=== PATIENT | female | born 1990 | race Two or more races ===

== ENCOUNTER 2022-06-01 09:18 | Emergency (ER) | payer MEDICAID, OTHER ==
[~2022-06-01] VITALS: Ht 167.6 cm; Wt 62.0 kg
[2022-06-01 09:31] VITALS: BP 130/86
[2022-06-01] MEDS ORDERED: FAMOTIDINE INJECTION 40 MG in SODIUM CHL 0.9% 100 ML IV ONE (09:45)
[2022-06-01] MEDS ORDERED: FAMOTIDINE (10MG/ML) 2ML VL IV ONE (09:45)
[2022-06-01] MEDS ORDERED: SODIUM CHLORIDE 0.9% 1,000 ML IV ONE ×2 (09:45→11:30)
[2022-06-01] MEDS ORDERED: ONDANSETRON HCL 4 MG/2 ML VIAL IV ONE (09:45)
[2022-06-01 09:56] LABS: Urine Bacteria NONE SEEN /hpf (None Seen); Urine Blood Negative /uL (Negative); Urine Hyaline Cast FEW /lpf (0 - 2); Urine Mucus FEW (None Seen); Urine Specific Gravity 1.011 (1.001-1.035); Urine WBC 2 /hpf (0 - 5)
[2022-06-01 10:12] LABS: Potassium 3.7 mmol/L (3.5-5.1)
[2022-06-01 10:15] LABS: Amphetamine Screen, Urine NEGATIVE (NEGATIVE); Barbiturate Scree,Urine NEGATIVE (NEGATIVE); Benzodiazephine Screen, Urine NEGATIVE (NEGATIVE); Cannabinoid Screen, Urine NEGATIVE (NEGATIVE); Cocaine Screen, Urine NEGATIVE (NEGATIVE); Opiate Scree,Urine NEGATIVE (NEGATIVE); Phencyclidine Screen, Urine NEGATIVE (NEGATIVE)
[2022-06-01 10:20] LABS: Albumin 4.2 g/dL (3.4-5.0); Bilirubin, Total 0.9 mg/dL (0.2-1.0); Total Protein 8.1 g/dL (6.4-8.2)
[2022-06-01 11:48] LABS: Basophils # (auto) 0 10 ^3/uL (0-0.2); Basophils % (auto) 0.6 % (0.0-2.0); Eosinophils # (auto) 0 10 ^3/uL (0-0.8); Eosinophils % (auto) 0.6 % (0.0-7.0); Hematocrit 43.4 % (36.0-46.0); Hemoglobin 15.6 g/dL (12.2-16.2); Lymphocytes # (auto) 1.3 10 ^3/uL (0.4-5.4); Lymphocytes % (auto) 28.4 % (10.0-50.0); Mean Corpuscular Hemoglobin 31.9 pg (28.0-32.0); Mean Corpuscular Hgb Conc. 35.9 g/dL (32.0-36.0); Mean Corpuscular Volume 88.7 fL (80.0-100.0); Monocytes # (auto) 0.4 10 ^3/uL (0-1.3); Neutrophils % (auto) 62.4 % (37.0-80.0); Nucleated Red Blood Cells % 0.4 %; Red Cell Distribution Width 13.4 % (11.8-14.3); White Blood Cell 4.7 10^3/uL (4.4-10.8)
[2022-06-01] MEDS ORDERED: ONDA-144 PO (12:30)
[2022-06-01] MEDS ORDERED: HYDR50CA PO (12:30)
== END 2022-06-01 12:47 | disposition home or self-care (01) ==
LOC: ER 09:18
DX: K29.20 Alcoholic gastritis without bleeding (principal); F10.10 Alcohol abuse, uncomplicated; K70.0 Alcoholic fatty liver; F41.1 Generalized anxiety disorder; F17.210 Nicotine dependence, cigarettes, uncomplicated; Z32.02 Encounter for pregnancy test, result negative; Y90.9 Presence of alcohol in blood, level not specified
CPT/HCPCS: 36415; 76705; 80053; 80307; 80320; 81001; 81025; 83690; 85025; 93005; 96361; 96374; 96375; 99285; J2405; J3490; J7030

== ENCOUNTER 2022-06-14 18:05 | Emergency (ER) | payer MEDICAID ==
[~2022-06-14] VITALS: Ht 167.6 cm; Wt 63.0 kg
[~2022-06-14 18:05] MED LIST: HYDR50CA PO; ONDA-144 PO
[2022-06-14 20:14] LABS: Basophils # (auto) 0 10 ^3/uL (0-0.2); Basophils % (auto) 1.3 % (0.0-2.0); Eosinophils # (auto) 0.1 10 ^3/uL (0-0.8); Eosinophils % (auto) 1.5 % (0.0-7.0); Hematocrit 40.6 % (36.0-46.0); Hemoglobin 14.1 g/dL (12.2-16.2); Lymphocytes # (auto) 1.2 10 ^3/uL (0.4-5.4); Lymphocytes % (auto) 33.9 % (10.0-50.0); Mean Corpuscular Hemoglobin 32.1 pg (28.0-32.0); Mean Corpuscular Hgb Conc. 34.8 g/dL (32.0-36.0); Monocytes # (auto) 0.3 10 ^3/uL (0-1.3); Monocytes % (auto) 8.3 % (0.0-12.0); Nucleated Red Blood Cells % 0.2 %; Red Blood Cells 4.41 10^6/uL (4.0-5.20); Red Cell Distribution Width 13.7 % (11.8-14.3); White Blood Cell 3.7 10^3/uL (4.4-10.8)
[2022-06-14 20:28] LABS: Urine Bacteria FEW /hpf (None Seen); Urine Blood Negative /uL (Negative); Urine Specific Gravity 1.008 (1.001-1.035); Urine WBC 1 /hpf (0 - 5)
[2022-06-14 20:41] LABS: Potassium 3.7 mmol/L (3.5-5.1)
[2022-06-14 20:46] LABS: Albumin 3.9 g/dL (3.4-5.0); Calcium 9.4 mg/dL (8.5-10.1)
[2022-06-14 20:49] LABS: Bilirubin, Total 0.9 mg/dL (0.2-1.0); Total Protein 7.6 g/dL (6.4-8.2)
[2022-06-15 05:16] VITALS: BP 111/82
[2022-06-15] MEDS ORDERED: NITR-87 PO (06:25)
[2022-06-15] MEDS ORDERED: PERCOT PO (06:25)
[2022-06-15] MEDS ORDERED: cefTRIAXone SOD 1,000 MG VL IM ONE (06:30)
== END 2022-06-15 06:50 | disposition home or self-care (01) ==
LOC: ER 18:05
DX: N39.0 Urinary tract infection, site not specified (principal); F17.210 Nicotine dependence, cigarettes, uncomplicated; Z79.899 Other long term (current) drug therapy
CPT/HCPCS: 36415; 74176; 80053; 81001; 83690; 85025; 96372; 99285; J0696

== ENCOUNTER 2024-03-14 11:45 | Inpatient (IN) | payer MEDICAID ==
[~2024-03-14] VITALS: Ht 167.6 cm; Wt 70.0 kg
[~2024-03-14 11:45] MED LIST changes: +NITR-87 PO; +PERCOT PO
--- NOTE | 2024-03-14 12:03 | ED.PDOC ---
GI ASSESSMENT HPI Comments 33Y F with PMHx tubal ligation presents to ED for chief complaint LLQ abd pain x2hrs with lt flank pain and n/v/d. Pt denies chest pain, SOB, and all urinary symptoms. LBM yesterday and it was diarrhea. LMP last month, approximately on February 13, 2024. Pt denies h/o kidney stone. No other symptoms reported. Time Seen by MD: 11:53 Primary Care Provider: NONE Reviewed Notes: Nurses Notes, Medications, Allergies Allergies: Coded Allergies: NO KNOWN ALLERGIES (Unverified , 06/14/22) Home Meds Active Scripts Nitrofurantoin Monohydrate Mac (Macrobid) 100 Mg Cap, 100 MG PO BID for 7 Days, #14 CAP Prov:KENNEDI CHAMBERS MD 06/15/22 Oxycodone W/ Acetaminophen (Percocet 5/325MG) 1 Tab Tb, 1 TAB PO BID for 7 Days, #14 TAB Prov:KENNEDI CHAMBERS MD 06/15/22 Hydroxyzine Pamoate (Vistaril) 50 Mg Cap, 1 CAP PO BID, #20 CAP 2 Refills Prov:STEVE BHAGAT 06/01/22 Ondansetron (Zofran) 4 Mg Tab, 1 TAB PO BID, #14 TAB Prov:STEVE BHAGAT 06/01/22 Information Source: Patient, Significant Other Mode of Arrival: Wheelchair Timing: Hours Duration: Since onset Quality: Sharp Vomitus: Watery Stool: Loose, Watery Severity: Moderate Recent: None Recent Hx of: None Pain Location: LLQ, Other (lt flank) Modifying Factors: Nothing Associated sign and symptoms: Nausea, Vomiting, Diarrhea, Abdominal Pain, Other (lt flank pain) Past Medical History PAST MEDICAL HISTORY: Anxiety Surgical History: BTL, Tubal Ligation EMERGENCY TECHNICIAN History: Denies all EMERGENCY TECHNICIAN Hx Family History Family History: Reviewed,noncontributory to illness Social History Smoker: Cigarettes Alcohol: Occasionally Drugs: Denies Drug Use Lives In: Home Constitutional: denies: chills, diaphoresis, fatigue, fever, malaise, sweats, weakness, others EENTM: denies: blurred vision, double vision, ear bleeding, ear discharge, ear drainage, ear pain, ear ringing, eye pain, eye redness, hearing loss, mouth pain, mouth swelling, nasal discharge, nose bleeding, nose congestion, nose pain, photophobia, tearing, throat pain, throat swelling, voice changes, others Respiratory: denies: cough, hemoptysis, orthopnea, SOB at rest, shortness of breath, SOB with excertion, stridor, wheezing, others Cardiovascular: denies: chest pain, dizzy spells, diaphoresis, Dyspnea on exertion, edema, irregular heart beat, left arm pain, lightheadedness, palpitations, PND, syncope, others Gastrointestinal: reports: abdominal pain, diarrhea, nausea, vomiting; denies: abdomen distended, blood streaked bowels, constipated, dysphagia, difficulty swallowing, hematemesis, melena, poor appetite, poor fluid intake, rectal bl eeding, rectal pain, others Genitourinary: reports: flank pain (left); denies: abnormal vagina bleeding, burning, dyspareunia, dysuria, frequency, hematuria, incontinence, pain, , vagina discharge, urgency, others Neurological: denies: dizziness, fainting, headache, left sided numbness, left sided weakness, numbness, paresthesia, pre-existing deficit, right sided numbness, right sided weakness, seizure, speech problems, tingling, tremors, weakness, others Musculoskeletal: denies: back pain, gout, joint pain, joint swelling, muscle pain, muscle stiffness, neck pain, others Integumetry: denies: bruises, change in color, change in hair/nails, dryness, laceration, lesions, lumps, rash, wounds, others Allergic/Immunocompromised: denies: Difficulty Healing, Frequent Infections, Hives, Itching, others Hematologic/Lymphatic: denies: anemia, blood clots, easy bleeding, easy bruising, swollen glands, others Endocrine: denies: excessive hunger, excessive sweating, excessive thirst, excessive urination, flushing, intolerance to cold, intolerance to heat, unexplained weight gain, unexplained weight loss, others Psychiatric: denies: anxiety, bipolar disorder, depression, hopeless, panic disorder, schizophrenia, sleepless, suicidal, others All Other Systems: Reviewed and Negative Physical Exam General Appearance: Moderate Distress HEENT: Normal ENT Inspection, Pharynx Normal, TMs Normal Neck: Full Range of Motion, Non-Tender, Normal, Normal Inspection Respiratory: Chest Non-Tender, Lungs Clear, No Accessory Muscle Use, No Respiratory Distress, Normal Breath Sounds Cardiovascular: No Edema, No JVD, No Murmur, No Gallop, Normal Peripheral Pulses, Regular Rate/Rhythm Breast Exam: Deferred Gastrointestinal: LLQ, No Organomegaly, No Pulsatile Mass, Normal Bowel Sounds, Tenderness (LLQ and lt flank) Genitalia: Deferred Pelvic: Deferred Rectal: Deferred Extremities: No calf tenderness, Normal capillary refill, Normal inspection, Normal range of motion, Non-tender, No pedal edema Musculoskeletal : Apperance: Normal Neurologic: Alert, waste/materials exchange specialist II-XII nml as Tested, No Motor Deficits, Normal Affect, Normal Mood, No Sensory Deficits Cerebellar Function: Normal Reflexes: Normal Skin: Dry, Normal Color, Warm Lymphatic: No Adenopathy Was a procedure done? Was a procedure done?: No GI differential Dx Differential Diagnosis: Appendicitis, Complete , Incomplete , Inevitable , Missed , Threatened , Abruptio placentae, Angina/[place], Aortic dissection, Bowel Obstruction, Cholangitis, Cholecystitis, Constipation, Diverticular disease, Dysmenorrhea, Ectopic , Gastritis/PUD, Gastroenteritis, Hernia, Hepatitis, Inflammatory BD, Ischemic Bowel, Ovarian cyst/torsion, Pancreatitis, PID, Porphyria, Urinary Obstruction, UTI, Urolithiasis, Dehydration, Diabetes/ DKA, Electrolyte Imbalance, Food Poisoning, , Bacterial, Parasitic, Viral, Hypovolemia, Impaction, Malnutrition, Ischemic Bowel, Mass, Stress Ulcer, Kidney Stone X-Ray, Labs, Meds, VS Vital Signs Date Time Temp Pulse Resp B/P (MAP) Pulse Ox O2 Delivery O2 Flow Rate FiO2 03/14/24 14:44 77 14 117/69 03/14/24 14:40 97.6 77 18 117/69 (85) 99 97.6 03/14/24 14:11 93 20 103/72 03/14/24 12:28 89 18 100 Room Air 03/14/24 12:28 97.9 89 18 99/66 (77) 100 97.9 03/14/24 11:51 97.9 88 20 115/75 (88) 97 Lab Test 03/14/24 12:04 03/14/24 11:54 Range/Units White Blood Count 6.5 4.4-10.8 10^3/uL Red Blood Count 5.01 4.0-5.20 10^6/uL Hemoglobin 16.5 H 12.2-16.2 g/dL Hematocrit 46.9 H 36.0-46.0 % Mean Corpuscular Volume 93.7 80.0-100.0 fL Mean Corpuscular Hemoglobin 32.9 H 28.0-32.0 pg Mean Corpuscular Hemoglobin Concent 35.1 32.0-36.0 g/dL Red Cell Distribution Width 13.9 11.8-14.3 % Platelet Count 224 140-450 10^3/uL Mean Platelet Volume 7.1 6.9-10.8 fL Neutrophils (%) (Auto) 68.1 37.0-80.0 % Lymphocytes (%) (Auto) 22.5 10.0-50.0 % Monocytes (%) (Auto) 7.9 0.0-12.0 % Eosinophils (%) (Auto) 0.8 0.0-7.0 % Basophils (%) (Auto) 0.7 0.0-2.0 % Neutrophils # (Auto) 4.5 1.6-8.6 10 ^3/uL Lymphocytes # (Auto) 1.5 0.4-5.4 10 ^3/uL Monocytes # (Auto) 0.5 0-1.3 10 ^3/uL Eosinophils # (Auto) 0.1 0-0.8 10 ^3/uL Basophils # (Auto) 0 0-0.2 10 ^3/uL Nucleated Red Blood Cells 0.3 % Sodium Level 135 L 136-145 mmol/L Potassium Level 3.7 3.5-5.1 mmol/L Chloride Level 102 98-107 mmol/L Carbon Dioxide Level 20 20-31 mmol/L Anion Gap 13 5-15 Blood Urea Nitrogen 7 L 9-23 mg/dL Creatinine 0.72 0.550-1.02 mg/dL Glomerular Filtration Rate Calc 112 >90 mL/min BUN/Creatinine Ratio 9.7 L 10.0-20.0 Serum Glucose 155 H 74-106 mg/dL Calcium Level 9.4 8.7-10.4 mg/dL Total Bilirubin 1.2 H 0.2-1.0 mg/dL Direct Bilirubin 0.4 H <0.3 mg/dL Aspartate Amino Transferase (AST) 225 H 13-40 U/L Alanine Aminotransferase (ALT) 83 H 7-40 U/L Alkaline Phosphatase 117 H 46-116 U/L Total Protein 6.9 5.7-8.2 g/dL Albumin 3.9 3.2-4.8 g/dL Lipase 1289 H 12-53 U/L Urine Color Light-orange Yellow Urine Clarity Hazy H Clear Urine pH 7.0 5.0-9.0 Urine Specific [place] 1.025 1.001-1.035 Urine Protein 1+ H Negative Urine Ketones 1+ H Negative Urine Blood Negative Negative /uL Urine Nitrite Negative Negative Urine Bilirubin Negative Negative Urine Urobilinogen 3 H Negative mg/dL Urine Leukocyte Esterase 2+ Negative /uL Urine RBC None seen 0 - 4 /hpf Urine WBC 12 0 - 5 /hpf Urine Squamous Epithelial Cells Many <5 /hpf Urine Bacteria Few H None Seen /hpf Urine Glucose Normal Normal mg/dL Urine Test Negative Negative Current Medications Medications (Trade) Dose Ordered Sig/Dom Route Start Time Stop Time Status Last Admin Sodium Chloride 1,000 ml @ 1,000 mls/hr Q1H ONCE IV 03/14/24 12:00 03/14/24 12:59 DC 03/14/24 12:45 Ketorolac Tromethamine (Toradol Injection) 15 mg ONCE ONCE IV 03/14/24 12:00 03/14/24 12:01 DC 03/14/24 12:44 Ondansetron HCl (Zofran) 4 mg ONCE ONCE IV 03/14/24 12:45 03/14/24 12:46 DC 03/14/24 12:44 Morphine Sulfate 2 mg ONCE ONCE IV 03/14/24 14:15 03/14/24 14:16 DC 03/14/24 14:11 [place] [id number] Ph: [phone] DIAGNOSTIC IMAGING Diagnostic Imaging Report : [id number] Signed PATIENT: SCOT GARCIA ACCT: [id number] UNIT: [id number] : 1990 LOC: ER ROOM / BED: / AGE / SEX: 33 / F ADM STATUS: REG ER SERVICE 1151 ORDERING PHYSICIAN: BLADE HAIR MD PROCEDURE(s): ABPL - CT AB PEL WO CON-NO ORAL OR IV REASON: llq l flank pain ORDER NUMBER(s): [id number], ACCESSION NUMBER(s): [id number] Exam: CT CT AB PEL WO CON-NO ORAL OR IV History: llq l flank pain Comparison Study: CT CT AB PEL WO CON-NO ORAL OR IV on DOS: 06/14/22 Technique: Multidetector spiral CT of the abdomen and pelvis was performed from lung bases to pubic symphysis. Imaging was performed without IV contrast. Axial, coronal and sagittal multiplanar reformats were obtained from the axial data set by the technologist. Radiation dose : Abdomen/Pelvis: CTDIvol 7 mGy, DLP 390.47 mGy*cm. Findings: Evaluation of solid organs is limited due to lack of intravenous contrast use. Lung Bases: No acute or significant lung base finding. Normal heart size. No pleural or pericardial effusion. Liver: Diffuse hepatic steatosis. Gallbladder and biliary Tree: Sludge in the gallbladder. Spleen: Unremarkable Pancreas: There is stranding and fluid around the pancreas. Adrenal Glands: Unremarkable Kidneys: Kidneys are grossly normal without calculi or hydronephrosis. Bladder: Grossly unremarkable for degree of distention. Bowel: The stomach is grossly normal in appearance. Small bowel and colon are normal in caliber and distribution. The appendix is not visualized; however, no secondary findings of acute appendicitis identified. Ascites: Absent Lymphadenopathy: No mesenteric, retroperitoneal or periportal lymphadenopathy. Abdominal wall and Mesentery: Unremarkable. Vasculature: The visualized abdominal aorta is normal in size and caliber. Evaluation of abdominal and pelvic vessels is limited due to lack of intravenous contrast. Pelvic Organs: Unremarkable Musculoskeletal: No aggressive focal bony lesions, acute fractures or dislocation. IMPRESSION: 1. Stranding and fluid around the pancreas suggests acute pancreatitis. This would be better /further evaluated with CT of the abdomen with contrast. Clinical correlation and continued follow-up is recommended. 2. Diffuse hepatic steatosis. Sludge in the gallbladder. 3. Radiation optimization: All CT scans at this facility use at least one of these dose optimization techniques: Automated exposure control mA and/or kV adjustment per patient size (includes targeted exams where dose is matched to clinical indication) or iterative reconstruction. HS:Y ATED BY: SALVATORE ORTIZ MD DICTATED DATE/TIME: 03/14/24 1336 SIGNED BY: SALVATORE ORTIZ MD SIGNED DATE/TIME: 03/14/24 1336 CC: Time of 1ST Reevaluation: 12:23 Reevaluation 1ST: Unchanged Time of 2ND Reevaluation: 15:31 Reevaluation 2ND: Improved Patient Education/Counseling: Diagnosis, Treatment, Prognosis, Need For Follow Up Family Education/Counseling: Diagnosis, Treatment, Prognosis, Need For Follow Up Additional Information I reviewed the following notes from patient's past medical encounters: [facility] ER 06/14/2022, 06/01/2022 The following tests were ordered, and results were reviewed by me: CBC, BMP, UA, urine test, CT abd/pelvis WO contrast Additional Information was gathered from interviewing the following independent historians: Significant other I reviewed and agreed with the following test results read by other providers: CT abd/pelvis WO contrast I discussed treatment and results with medical personnel and pt's significant other. pt has pancreatitis and will be admitted for further treatments Departure 1 Departure Time of Disposition: 15:33 Impression: Primary Impression: Pancreatitis Qualified Codes: K85.90 - Acute pancreatitis without necrosis or infection, unspecified Additional Impressions: UTI (urinary tract infection) Qualified Codes: N30.00 - Acute cystitis without hematuria Elevated liver enzymes Disposition: ADMITTED INPATIENT Admit to: Med Surg Condition: Serious Discharged With: Self, Spouse Critical Care Note Critical Care Time?: Yes (1 hr-critical care time only) Critical care comment: Due to concerns for patients condition deteriorating, the care required my highest level of attention and readiness to intervene. I assessed the patient, reviewed the medical records, ordered the appropriate tests and treatments, then reassessed for results and responsiveness. I communicated with medical personnel and consultants and formulated a plan of care. Total critical care time excludes any procedures Stability Stability form required: No Heart Score Heart Score: Heart Score Response (Comments) Value History N/A 0 EKG N/A 0 Age N/A 0 Risk Factors N/A 0 Troponin N/A 0 Total 0 I personally scribed for BLADE HAIR MD ([employer] on 03/14/24 at 12:03. Electronically submitted by Birgit Yanes ([employer]). I personally scribed for BLADE HAIR MD ([facility]) on 03/14/24 at 14:24. Electronically submitted by Birgit Yanes ([employer]). BLADE HAIR MD Mar 14, 2024 12:03
[2024-03-14 12:31] LABS: Basophils # (auto) 0 10 ^3/uL (0-0.2); Basophils % (auto) 0.7 % (0.0-2.0); Eosinophils # (auto) 0.1 10 ^3/uL (0-0.8); Eosinophils % (auto) 0.8 % (0.0-7.0); Hematocrit 46.9 % (36.0-46.0); Hemoglobin 16.5 g/dL (12.2-16.2); Lymphocytes # (auto) 1.5 10 ^3/uL (0.4-5.4); Lymphocytes % (auto) 22.5 % (10.0-50.0); Mean Corpuscular Hemoglobin 32.9 pg (28.0-32.0); Mean Corpuscular Hgb Conc. 35.1 g/dL (32.0-36.0); Mean Corpuscular Volume 93.7 fL (80.0-100.0); Monocytes # (auto) 0.5 10 ^3/uL (0-1.3); Monocytes % (auto) 7.9 % (0.0-12.0); Neutrophils # (auto) 4.5 10 ^3/uL (1.6-8.6); Neutrophils % (auto) 68.1 % (37.0-80.0); Nucleated Red Blood Cells % 0.3 %; Platelet Count (auto) 224 10^3/uL (140-450); Red Blood Cells 5.01 10^6/uL (4.0-5.20); Red Cell Distribution Width 13.9 % (11.8-14.3); White Blood Cell 6.5 10^3/uL (4.4-10.8)
[2024-03-14 12:37] LABS: Chloride 102 mmol/L (98-107); Potassium 3.7 mmol/L (3.5-5.1)
[2024-03-14 12:38] LABS: Anion Gap 13 (5-15); Calcium 9.4 mg/dL (8.7-10.4); Carbon Dioxide 20 mmol/L (20-31)
[2024-03-14 12:42] LABS: Sodium 135 mmol/L (136-145)
[2024-03-14 12:43] LABS: BUN/Creatinine Ratio 9.7 (10.0-20.0)
[2024-03-14] MEDS: KETOROLAC TROMETH 30 MG/ML 1ML VIAL IV ONE (12:44)
[2024-03-14] MEDS: ONDANSETRON HCL 4 MG/2 ML VIAL IV ONE ×2 (12:44→16:58)
[2024-03-14 12:45] LABS: Blood Urea Nitrogen 7 mg/dL (9-23); Glucose 155 mg/dL (74-106)
[2024-03-14] MEDS: SODIUM CHLORIDE 0.9% 1,000 ML IV ONE (12:45)
[2024-03-14 12:49] LABS: Urine Bacteria FEW /hpf (None Seen); Urine Blood Negative /uL (Negative); Urine Color Light-Orange (Yellow); Urine Protein, UAD 1+ (Negative); Urine Specific Gravity 1.025 (1.001-1.035); Urine Squamous Epithelial Cell MANY /hpf (<5); Urine Urobilinogen 3 mg/dL (Negative); Urine WBC 12 /hpf (0 - 5)
[2024-03-14 12:50] LABS: Urine Clarity Hazy (Clear)
--- NOTE | 2024-03-14 13:38 | DVH ---
Exam: CT CT AB PEL WO CON-NO ORAL OR IV History: llq l flank pain Comparison Study: CT CT AB PEL WO CON-NO ORAL OR IV on DOS: 06/14/22 Technique: Multidetector spiral CT of the abdomen and pelvis was performed from lung bases to pubic symphysis. Imaging was performed without IV contrast. Axial, coronal and sagittal multiplanar reform ats were obtained from the axial data set by the technologist. Radiation dose : Abdomen/Pelvis: CTDIvol 7 mGy, DLP 390.47 mGy*cm. Findings: Evaluation of solid organs is limited due to lack of intravenous contrast use. Lung Bases: No acute or significant lung base finding. Normal heart size. No pleural or pericardial effusion. Liver: Diffuse hepatic steatosis. Gallbladder and biliary Tree: Sludge in the gallbladder. Spleen: Unremarkable Pancreas: There is stranding and fluid around the pancreas. Adrenal Glands: Unremarkable Kidneys: Kidneys are grossly normal without calculi or hydronephrosis. Bladder: Grossly unremarkable for degree of distention. Bowel: The stomach is grossly normal in appearance. Small bowel and colon are normal in caliber and d istribution. The appendix is not visualized; however, no secondary findings of acute appendicitis id entified. Ascites: Absent Lymphadenopathy: No mesenteric, retroperitoneal or periportal lymphadenopathy. Abdominal wall and Mesentery: Unremarkable. Vasculature: The visualized abdominal aorta is normal in size and caliber. Evaluation of abdominal a nd pelvic vessels is limited due to lack of intravenous contrast. Pelvic Organs: Unremarkable Musculoskeletal: No aggressive focal bony lesions, acute fractures or dislocation. IMPRESSION: 1. Stranding and fluid around the pancreas suggests acute pancreatitis. This would be better /furthe r evaluated with CT of the abdomen with contrast. Clinical correlation and continued follow-up is rec ommended. 2. Diffuse hepatic steatosis. Sludge in the gallbladder. 3. Radiation optimization: All CT scans at this facility use at least one of these dose optimization techniques: Automated exposure control mA and/or kV adjustment per patient size (includes targeted ex ams where dose is matched to clinical indication) or iterative reconstruction. HS:Y
[2024-03-14] MEDS: MORPHINE SULFATE INJ 2 MG/ml SYRG IV ONE (14:11)
[2024-03-14 14:30] LABS: Albumin 3.9 g/dL (3.2-4.8); Bilirubin, Total 1.2 mg/dL (0.2-1.0); Total Protein 6.9 g/dL (5.7-8.2)
[2024-03-14 14:44] LABS: Bilirubin, Direct 0.4 mg/dL (<0.3)
--- NOTE | 2024-03-14 16:15 | DVH ---
INDICATION: r/o gsw pancreatitis TECHNIQUE: Multiple real-time sonographic images of the abdomen were obtained. COMPARISON: US GALLBLADDER on DOS: 06/01/22 FINDINGS: Echogenic hepatic parenchyma suggesting steatosis.. The liver measures 19.8 cm. No intrahe patic biliary ductal dilatation is noted. The gallbladder wall measures 0.22 cm and is unremarkable. No gallstones or sludge is seen. The co mmon duct measures 0.66 cm and is unremarkable. Common bile duct is at the upper limits of normal No pericholecystic fluid is noted. Ultrasound Haile's sign is negative The right kidney measures 10.9 cm. No hydronephrosis. The pancreas is normal The visualized portions of the IVC and aorta are grossly unremarkable. IMPRESSION: 1. Hepatomegaly with findings of steatosis 2. Common bile duct upper limits of normal. Negative ultrasound Haile's sign
[2024-03-14] MEDS: MORPHINE SULFATE 4 MG/ML SYR/VIAL IV ONE (16:58)
[2024-03-14] MEDS: cefTRIAXone 1GM/50ML D5W 50 ML IV ONE (16:58)
[2024-03-14 17:05] VITALS: PULSE 80; RESP 15; O2SAT 97
[2024-03-14] MEDS: LACTATED RINGER'S 700 ML IV ONE (21:38)
[2024-03-14] MEDS: ONDANSETRON HCL 4 MG/2 ML VIAL IV PRN (21:50)
[2024-03-14] MEDS: MORPHINE SULFATE INJ 2 MG/ml SYRG IV PRN (21:54)
[2024-03-14] MEDS ORDERED: LORazepam 2MG/ML-1ML VIAL IV PRN (23:00)
[2024-03-14] MEDS: PANTOPRAZOLE 40 MG/10 ML VIAL INJ IV ONE (23:14)
[2024-03-14] MEDS: LACTATED RINGER'S 1,000 ML IV SCH (23:15)
[2024-03-15] VITALS (9 sets, daily range): BP systolic 109–147; BP diastolic 69–99; PULSE 98–116; RESP 14–19; TEMP 98–98.8; O2SAT 96–99
[2024-03-15] MEDS: MORPHINE SULFATE INJ 2 MG/ml SYRG IV ONE (01:30)
[2024-03-15] MEDS: LACTATED RINGER'S 1,000 ML IV SCH ×2 (03:42→15:55)
--- NOTE | 2024-03-15 04:26 | DVHHPRES ---
History of Present Illness Resident Creating Document: LISA GOULDNICK RESIDENT History of Present Illness Patient is a 33-year-old female with no significant past medical history came to the ED with a chief complaint of severe abdominal pain that started few hours prior to presentation. Patient reports that she woke up with sudden onset epigastric abdominal pain and later her abdomen was hurting diffusely, the pain was radiating to the back from the epigastrium, improved on sitting up and worsened on lying down. Patient reported associated nausea and multiple episodes of vomiting which were mostly consisted of yellowish colored fluid but no blood, 3-4 episodes of watery stools no associated blood in the stool. Patient reports heavy alcohol intake daily and reported that the night previous she consumed about 3-4 tall cans of beer. Patient denied fever, chills, chest pain, shortness of breath, dysuria. Patient reports that she has been trying to stop drinking alcohol but is not able to and wants support to help her quit drinking. Past medical history: None Past surgical history: Bilateral Tubal ligation Social history: Patient lives with her children and reports drinking about 10- 12 beer pints every day, 17 year half pack a day cigarette smoking, denies other illicit drug use. Home medications: none Review of Systems Review of Systems Patient reports severe epigastric abdominal pain radiating to the back, which is slightly better when she sits up and bends forward her torso Also has intermittent nausea but no current vomiting. Denies chest pain, shortness of breath, dysuria, headache Allergies: Coded Allergies: NO KNOWN ALLERGIES (Unverified , 06/14/22) Medications Current Medications Medications Dose Ordered Sig/Dom Route Start Time Stop Time Status Last Admin Dose Admin Ondansetron HCl 4 mg Q6HPRN PRN IV 03/14/24 21:15 03/14/24 21:50 4 MG Lorazepam 1 mg Q6HP PRN IV 03/14/24 23:00 Lorazepam 1 mg Q5MINP PRN IV 03/14/24 23:00 Pantoprazole Sodium 40 mg DAILY IV 03/15/24 10:00 Lactated Ringer's 1,000 ml @ 120 mls/hr Q8H20M IV 03/15/24 03:30 03/15/24 03:42 120 MLS/HR Morphine Sulfate 4 mg Q4HPRN PRN IV 03/15/24 03:30 Ceftriaxone Sodium 50 ml @ 100 mls/hr DAILY@1700 IV 03/15/24 17:00 Exam Vital Signs Vital Signs Date Time Temp Pulse Resp B/P (MAP) Pulse Ox O2 Delivery O2 Flow Rate FiO2 03/15/24 03:09 102 17 99 Room Air* 0 21 03/15/24 03:09 98.0 134/95 (108) 98.0 Exam Physical Examination Constitutional: Patient was alert and oriented to time, place and person and appears to be in acute distress because of the severe abdominal pain. Gen - no pallor, no icterus, no cyanosis, no clubbing, no LAD, no edema . Skin - Patients skin is warm and dry. HEENT - normocephalic, atraumatic, dry mucous membranes. Neck - full ROM, no LAD, no JVD Pulmonary - B/L vesicular breath sounds. no crackles , no wheezing cardiovascular - normal S1,S2 heard. no murmurs heard. GI - soft abdomen with severe tenderness to palpation in the epigastrium and diffuse [id number] tenderness in the whole abdomen, no hepatospleenomegaly, normoactive bowel sounds Neurological - Bilateral upper extremity strength 5/5, bilateral lower extremity strength 5/5, no facial droop, normal speech, no tremor, no sensory deficiets. Labs/Xrays Labs Test 03/14/24 12:04 03/14/24 11:54 Range/Units White Blood Count 6.5 4.4-10.8 10^3/uL Red Blood Count 5.01 4.0-5.20 10^6/uL Hemoglobin 16.5 H 12.2-16.2 g/dL Hematocrit 46.9 H 36.0-46.0 % Mean Corpuscular Volume 93.7 80.0-100.0 fL Mean Corpuscular Hemoglobin 32.9 H 28.0-32.0 pg Mean Corpuscular Hemoglobin Concent 35.1 32.0-36.0 g/dL Red Cell Distribution Width 13.9 11.8-14.3 % Platelet Count 224 140-450 10^3/uL Mean Platelet Volume 7.1 6.9-10.8 fL Neutrophils (%) (Auto) 68.1 37.0-80.0 % Lymphocytes (%) (Auto) 22.5 10.0-50.0 % Monocytes (%) (Auto) 7.9 0.0-12.0 % Eosinophils (%) (Auto) 0.8 0.0-7.0 % Basophils (%) (Auto) 0.7 0.0-2.0 % Neutrophils # (Auto) 4.5 1.6-8.6 10 ^3/uL Lymphocytes # (Auto) 1.5 0.4-5.4 10 ^3/uL Monocytes # (Auto) 0.5 0-1.3 10 ^3/uL Eosinophils # (Auto) 0.1 0-0.8 10 ^3/uL Basophils # (Auto) 0 0-0.2 10 ^3/uL Nucleated Red Blood Cells 0.3 % Sodium Level 135 L 136-145 mmol/L Potassium Level 3.7 3.5-5.1 mmol/L Chloride Level 102 98-107 mmol/L Carbon Dioxide Level 20 20-31 mmol/L Anion Gap 13 5-15 Blood Urea Nitrogen 7 L 9-23 mg/dL Creatinine 0.72 0.550-1.02 mg/dL Glomerular Filtration Rate Calc 112 >90 mL/min BUN/Creatinine Ratio 9.7 L 10.0-20.0 Serum Glucose 155 H 74-106 mg/dL Calcium Level 9.4 8.7-10.4 mg/dL Total Bilirubin 1.2 H 0.2-1.0 mg/dL Direct Bilirubin 0.4 H <0.3 mg/dL Aspartate Amino Transferase (AST) 225 H 13-40 U/L Alanine Aminotransferase (ALT) 83 H 7-40 U/L Alkaline Phosphatase 117 H 46-116 U/L Total Protein 6.9 5.7-8.2 g/dL Albumin 3.9 3.2-4.8 g/dL Lipase 1289 H 12-53 U/L Urine Color Light-orange Yellow Urine Clarity Hazy H Clear Urine pH 7.0 5.0-9.0 Urine Specific Cornish 1.025 1.001-1.035 Urine Protein 1+ H Negative Urine Ketones 1+ H Negative Urine Blood Negative Negative /uL Urine Nitrite Negative Negative Urine Bilirubin Negative Negative Urine Urobilinogen 3 H Negative mg/dL Urine Leukocyte Esterase 2+ Negative /uL Urine RBC None seen 0 - 4 /hpf Urine WBC 12 0 - 5 /hpf Urine Squamous Epithelial Cells Many <5 /hpf Urine Bacteria Few H None Seen /hpf Urine Glucose Normal Normal mg/dL Urine Test Negative Negative Assessment/Plan Assessment/Plan Acute abdominal pain likely due to pancreatitis Acute pancreatitis likely Alcohol-induced Acute intractable nausea and vomiting likely due to pancreatitis - lipase elevated at 1289 - CT abdomen pelvis without contrast showed stranding and fluid around the pancreas - gallbladder ultrasound showed no gallstone or sludge, no pericholecystic fluid, negative ultrasound Haile sign - patient given 1 L NS bolus, 700 mL LR bolus - running LR at 120 mL/hour - morphine for pain control - NPO - Protonix 40 mg daily - Zofran p.r.n. for nausea, vomiting Hepatic steatosis Transaminitis likely due to chronic heavy alcohol consumption Chronic alcohol dependence - AST 225, ALT 83 - RUQ ultrasound shows hepatomegaly with findings of steatosis - hepatitis panel pending - patient counseled on alcohol cessation for more than 15 minutes, resources to be provided to help with de-addiction - monitor CMP Urinary tract infection likely acute cystitis - UA shows 2+ LE, elevated urine WBCs, few bacteria - started ceftriaxone 1 g IV daily Goals of care discussed with the patient for over 23 minutes. Full code Plan discussed with Dr. Rodriguez Plan discussed with: Patient My Orders Orders - SONIA GOULD RESIDENT Procedure Category Date Status Time Admit ADMIT 03/14/24 Transmitted 21:14 Npo (Nothing By DIET 03/15/24 Transmitted Mouth) Diet Breakfast Ondansetron Hcl PHA 03/14/24 In Process (Zofran) 21:15 Code Status CODE 03/14/24 Transmitted 22:58 Lorazepam 2mg/Ml Inj PHA 03/14/24 In Process (Ativan Inj) 23:00 Lorazepam 2mg/Ml Inj PHA 03/14/24 In Process (Ativan Inj) 23:00 Pantoprazole PHA 03/15/24 In Process (Protonix) 10:00 Lactated Ringer's PHA 03/15/24 In Process 03:30 Morphine Sulfate PHA 03/15/24 In Process Injection 03:30 Lipid Panel LAB 03/15/24 Logged 03:30 Complete Blood Count LAB 03/15/24 Logged 03:30 Comprehensive LAB 03/15/24 Logged Metabolic Panel 03:30 Hemoglobin A1c LAB 03/15/24 Logged 03:30 Thyroid Stimulating LAB 03/15/24 Logged Hormone 03:30 Lipase LAB 03/15/24 Logged 03:30 Ceftriaxone 1gm/50ml PHA 03/15/24 In Process D5w (Rocephin) 17:00 Blood Alcohol LAB 03/15/24 Logged 03:30 * Casing Tester CONS 03/15/24 Transmitted Consult 03:35 Date of Service: Mar 14, 2024 Billing Provider: ALEX RODRIGUEZ MD Common Visit Codes: [id number] INP/OBS CARE (HIGH) Secondary Visit Codes: [id number] CARE PLAN 30 MINUTES SONIA GOULD RESIDENT Mar 15, 2024 04:26 ALEX RODRIGUEZ MD Mar 15, 2024 20:48
[2024-03-15] MEDS: MORPHINE SULFATE INJ 2 MG/ml SYRG IV PRN (05:35)
[2024-03-15 07:16] LABS: Basophils # (auto) 0 10 ^3/uL (0-0.2); Basophils % (auto) 0.1 % (0.0-2.0); Eosinophils # (auto) 0.1 10 ^3/uL (0-0.8); Eosinophils % (auto) 0.8 % (0.0-7.0); Hematocrit 41.6 % (36.0-46.0); Hemoglobin 14.5 g/dL (12.2-16.2); Lymphocytes # (auto) 0.8 10 ^3/uL (0.4-5.4); Lymphocytes % (auto) 10.8 % (10.0-50.0); Mean Corpuscular Hemoglobin 33.2 pg (28.0-32.0); Mean Corpuscular Hgb Conc. 34.8 g/dL (32.0-36.0); Mean Corpuscular Volume 95.5 fL (80.0-100.0); Monocytes # (auto) 0.4 10 ^3/uL (0-1.3); Monocytes % (auto) 4.8 % (0.0-12.0); Neutrophils # (auto) 6.2 10 ^3/uL (1.6-8.6); Neutrophils % (auto) 83.5 % (37.0-80.0); Nucleated Red Blood Cells % 0.2 %; Platelet Count (auto) 144 10^3/uL (140-450); Red Blood Cells 4.36 10^6/uL (4.0-5.20); White Blood Cell 7.4 10^3/uL (4.4-10.8)
[2024-03-15 07:26] LABS: Alkaline Phosphatase 91 U/L (46-116); Anion Gap 5 (5-15); BUN/Creatinine Ratio 13.6 (10.0-20.0); Carbon Dioxide 26 mmol/L (20-31); Chloride 104 mmol/L (98-107); LDL Cholesterol 85 mg/dL (< 100); Potassium 3.7 mmol/L (3.5-5.1); Triglycerides 87 mg/dL (< 150)
[2024-03-15 07:27] LABS: Cholesterol 153 mg/dL (< 200); HDL Cholesterol 56 mg/dL (40-59)
[2024-03-15 07:37] LABS: Alanine Aminotransferase 59 U/L (7-40); Aspartate Aminotransferase 173 U/L (13-40); Bilirubin, Total 1.5 mg/dL (0.2-1.0); Blood Alcohol < 3.0 mg/dL (<10); Blood Urea Nitrogen 9 mg/dL (9-23); Calcium 8.5 mg/dL (8.7-10.4); Glucose 107 mg/dL (74-106); Sodium 135 mmol/L (136-145); Total Protein 5.6 g/dL (5.7-8.2)
[2024-03-15 09:14] LABS: Lipase 925 U/L (12-53)
[2024-03-15] MEDS: ONDANSETRON HCL 4 MG/2 ML VIAL IV PRN (10:56)
[2024-03-15] MEDS: PANTOPRAZOLE 40 MG/10 ML VIAL INJ IV SCH (12:05)
--- NOTE | 2024-03-15 16:35 | DVHPNRES ---
Progress Note Date Seen: Mar 15, 2024 Resident Creating Document: MANJU BROOKS RIGOBERTO Has the PT tested + for MRSA If YES, has PT been informed?: No Medical Necessity Reason Pt with a Central, PICC or Fol: No Subjective Review of Systems The patient is a 33-year-old female with no significant past medical history who came to the ED with a chief complaint of severe abdominal pain that started a few hours prior to presentation. The patient reports that she woke up with sudden onset epigastric abdominal pain, which later became diffuse. The pain radiated to her back from the epigastrium, improved when sitting up, and worsened when lying down. The patient reported associated nausea and multiple episodes of vomiting, which mostly consisted of yellowish-colored fluid but no blood. She also had 3-4 episodes of watery stools without any associated blood. The patient reports heavy daily alcohol intake and mentioned that the previous night she consumed about 3-4 tall cans of beer. The patient denied fever, chills, chest pain, shortness of breath, and dysuria. She reports that she has been trying to stop drinking alcohol but has been unable to and wants support to help her quit drinking. Past medical history: None Past surgical history: Bilateral Tubal ligation Social history: Patient lives with her children and reports drinking about 10- 12 beer pints every day, 17 year half pack a day cigarette smoking, denies other illicit drug use. Home medications: none Today, patient seen and examined at the bedside. Patient is still complained of abdominal pain and nausea. Patient reports: No new complaints, Feels better Changes from previous H/P or p: Changes Objective vital signs Vital Sign Date Time Temp Pulse Resp B/P (MAP) Pulse Ox O2 Delivery O2 Flow Rate FiO2 03/15/24 15:52 98 18 118/82 03/15/24 13:32 98.7 96 98.7 03/15/24 08:00 Room Air* 0 21 Total Intake and Output 03/14/24 03/14/24 03/15/24 15:00 23:00 07:00 Intake Total 1000 ml 50 ml 0 ml Output Total 0 ml Balance 1000 ml 50 ml 0 ml medications Current Medications Medications Dose Ordered Sig/Dom Route Start Time Stop Time Status Last Admin Dose Admin Lorazepam 1 mg Q6HP PRN IV 03/14/24 23:00 Lorazepam 1 mg Q5MINP PRN IV 03/14/24 23:00 Pantoprazole Sodium 40 mg DAILY IV 03/15/24 10:00 03/15/24 12:05 40 MG Morphine Sulfate 4 mg Q4HPRN PRN IV 03/15/24 03:30 03/15/24 15:52 4 MG Ceftriaxone Sodium 50 ml @ 100 mls/hr DAILY@1700 IV 03/15/24 17:00 Ondansetron HCl 4 mg Q4HPRN PRN IV 03/15/24 10:15 03/15/24 15:52 4 MG Lactated Ringer's 1,000 ml @ 100 mls/hr Q10H IV 03/15/24 12:45 03/15/24 15:55 100 MLS/HR Examination General Appearance: Alert, Oriented X3, Cooperative, No acute distress HEENT: Atraumatic, PERRLA, EOMI, Mucous membrane moist/pink Respiratory: Clear to auscultation, Normal air movement Cardiovascular: Regular rate, Normal S1, Normal S2, No murmurs, no chest wall tenderness Abdominal: Mild abdominal tenderness Extremities: No clubbing, No cyanosis, No edema, Normal pulses, No tenderness/swelling Skin: No rashes, No breakdown, No significant lesion Neuro: Normal gait, Normal speech, Strength at 5/5 X4 ext, Normal tone, Sensation intact, Cranial nerves 3-12 NL, Reflexes 2+ Psych/Mental Status: Mental status NL, Mood NL laboratory and microbiology Laboratory Tests 03/15/24 06:08 Test 03/15/24 06:08 Range/Units Serum Glucose 107 H 74-106 mg/dL Labs and/or images reviewed: Labs reviewed by me, Image(s) reviewed by me Problem List/Assessment/Plan Problem List/Assessment/Plan Acute abdominal pain likely due to pancreatitis Acute pancreatitis likely Alcohol-induced Acute intractable nausea and vomiting likely due to pancreatitis lipase elevated at 1289 CT abdomen pelvis without contrast showed stranding and fluid around the pancreas gallbladder ultrasound showed no gallstone or sludge, no pericholecystic fluid, negative ultrasound Haile sign patient given 1 L NS bolus, 700 mL LR bolus LR at 100mL/hour morphine for pain control NPO Zofran p.r.n. for nausea, vomiting Hepatic steatosis Transaminitis likely due to chronic heavy alcohol consumption Chronic alcohol use disorder AST 225, ALT 83 RUQ ultrasound shows hepatomegaly with findings of steatosis patient counseled on alcohol cessation for more than 15 minutes, resources to be provided to help with de-addiction excellent FCM current smoker Patient was consulted for smoking cessation for more than 13 minutes Urinary tract infection likely acute cystitis UA shows UTI picture IV ceftriaxone Urine cultureurine sean History of depression/anxiety Follow up on outpatient basis DIET: NPO DVT PROPHYLAXIS: Lovenox GI PROPHYLAXIS:: Protonix BOWEL REGIMEN: Patient is NPO CODE STATUS: Goal of care discussed for more than 27 minute, full code DISPOSITION: Med surge Patient's status discussed with the patient. Case discussed with Dr. Ghotra Plan discussed with: Patient, Other (RN) My Orders My Orders Orders - MANJU BROOKS Procedure Category Date Status Time Ondansetron Hcl PHA 03/15/24 In Process (Zofran) 10:15 Lactated Ringer's PHA 03/15/24 In Process 12:45 Date of Service: Mar 15, 2024 Billing Provider: KYLE SHARP MD Common Visit Codes: [id number] INP/OBS CARE(HIGH) MANJU BROOKS RESDIENT Mar 15, 2024 16:35 KYLE SHARP MD Mar 18, 2024 20:52
[2024-03-15] MEDS: cefTRIAXone 1GM/50ML D5W 50 ML IV SCH (17:12)
[2024-03-16] VITALS (7 sets, daily range): BP systolic 103–116; BP diastolic 68–82; PULSE 97–120; RESP 16–19; TEMP 98.2–99.7; O2SAT 95–98
[2024-03-16] MEDS: MORPHINE SULFATE INJ 2 MG/ml SYRG IV PRN (01:18)
[2024-03-16] MEDS: LORazepam 2MG/ML-1ML VIAL IV PRN (03:44)
[2024-03-16 06:14] LABS: Alkaline Phosphatase 75 U/L (46-116); Anion Gap 8 (5-15); BUN/Creatinine Ratio 14.5 (10.0-20.0); Carbon Dioxide 26 mmol/L (20-31); Chloride 104 mmol/L (98-107); Glucose 83 mg/dL (74-106); Sodium 138 mmol/L (136-145)
[2024-03-16 06:15] LABS: Basophils # (auto) 0 10 ^3/uL (0-0.2); Basophils % (auto) 0.2 % (0.0-2.0); Bilirubin, Total 0.9 mg/dL (0.2-1.0); Eosinophils # (auto) 0.1 10 ^3/uL (0-0.8); Eosinophils % (auto) 1.2 % (0.0-7.0); Hematocrit 38.4 % (36.0-46.0); Hemoglobin 13.3 g/dL (12.2-16.2); Lymphocytes # (auto) 0.8 10 ^3/uL (0.4-5.4); Lymphocytes % (auto) 10.9 % (10.0-50.0); Mean Corpuscular Hgb Conc. 34.6 g/dL (32.0-36.0); Mean Corpuscular Volume 95.4 fL (80.0-100.0); Monocytes # (auto) 0.4 10 ^3/uL (0-1.3); Monocytes % (auto) 5.3 % (0.0-12.0); Neutrophils % (auto) 82.4 % (37.0-80.0); Nucleated Red Blood Cells % 0.1 %; Platelet Count (auto) 121 10^3/uL (140-450); Red Blood Cells 4.02 10^6/uL (4.0-5.20); Red Cell Distribution Width 13.9 % (11.8-14.3); White Blood Cell 7.3 10^3/uL (4.4-10.8)
[2024-03-16 06:17] LABS: Alanine Aminotransferase 40 U/L (7-40); Albumin 2.8 g/dL (3.2-4.8); Aspartate Aminotransferase 107 U/L (13-40); Blood Urea Nitrogen 8 mg/dL (9-23); Calcium 8.2 mg/dL (8.7-10.4); Potassium 3.3 mmol/L (3.5-5.1); Total Protein 5.1 g/dL (5.7-8.2)
[2024-03-16] MEDS: LACTATED RINGER'S 1,000 ML IV ONE (14:17)
[2024-03-16] MEDS: ONDANSETRON HCL 4 MG/2 ML VIAL IV SCH (16:00)
--- NOTE | 2024-03-16 16:15 | DVH ---
Date: 03/16/2024 03:54 PM Examination: XY KUB ABDOMEN SINGLE VIEW History: Abdominal pain, pancreatitis. Comparison: None TECHNIQUE: Frontal views of the abdomen was obtained. FINDINGS: Bowel gas pattern is unremarkable. The lung bases are unremarkable. No acute osseous abnormality identified. IMPRESSION: 1. Nonobstructive bowel gas pattern.
[2024-03-16] MEDS: LACTATED RINGER'S 1,000 ML IV SCH (17:29)
[2024-03-16] MEDS: FOLIC ACID 1 MG, MULTIPLE VITAMIN 10 ML, MAGNESIUM SULF SDV 50% 8 MEQ, THIAMINE INJ 100... INJ ONE (18:00)
[2024-03-17] VITALS (9 sets, daily range): BP systolic 102–120; BP diastolic 63–80; PULSE 98–120; RESP 16–18; TEMP 97.6–99.5; O2SAT 93–96
[2024-03-17 10:09] LABS: Basophils # (auto) 0 10 ^3/uL (0-0.2); Basophils % (auto) 0.3 % (0.0-2.0); Eosinophils # (auto) 0.1 10 ^3/uL (0-0.8); Eosinophils % (auto) 1.1 % (0.0-7.0); Hematocrit 34.1 % (36.0-46.0); Hemoglobin 11.7 g/dL (12.2-16.2); Lymphocytes # (auto) 0.8 10 ^3/uL (0.4-5.4); Lymphocytes % (auto) 11.5 % (10.0-50.0); Mean Corpuscular Hemoglobin 32.7 pg (28.0-32.0); Mean Corpuscular Hgb Conc. 34.3 g/dL (32.0-36.0); Mean Corpuscular Volume 95.3 fL (80.0-100.0); Monocytes # (auto) 0.6 10 ^3/uL (0-1.3); Monocytes % (auto) 8.2 % (0.0-12.0); Neutrophils # (auto) 5.4 10 ^3/uL (1.6-8.6); Neutrophils % (auto) 78.9 % (37.0-80.0); Platelet Count (auto) 125 10^3/uL (140-450); Red Blood Cells 3.57 10^6/uL (4.0-5.20); Red Cell Distribution Width 13.9 % (11.8-14.3); White Blood Cell 6.8 10^3/uL (4.4-10.8)
[2024-03-17 10:34] LABS: Alanine Aminotransferase 25 U/L (7-40); Alkaline Phosphatase 73 U/L (46-116); Anion Gap 7 (5-15); Carbon Dioxide 28 mmol/L (20-31); Chloride 101 mmol/L (98-107); Glucose 98 mg/dL (74-106)
[2024-03-17 10:35] LABS: Albumin 2.8 g/dL (3.2-4.8); Aspartate Aminotransferase 53 U/L (13-40); BUN/Creatinine Ratio 10.4 (10.0-20.0); Bilirubin, Total 0.6 mg/dL (0.2-1.0); Blood Urea Nitrogen < 5 mg/dL (9-23); Calcium 8.3 mg/dL (8.7-10.4); Potassium 2.9 mmol/L (3.5-5.1); Sodium 136 mmol/L (136-145)
[2024-03-17] MEDS ORDERED: FOLIC ACID 1 MG in D5W 5% 50 ML INJ SCH (11:15)
[2024-03-17] MEDS ORDERED: LORazepam 2MG/ML-1ML VIAL IV PRN (11:15)
--- NOTE | 2024-03-17 11:30 | DVHPNRES ---
Progress Note Date Seen: Mar 16, 2024 Resident Creating Document: MODESTO GONZALEZ RESIDENT Has the PT tested + for MRSA If YES, has PT been informed?: No Medical Necessity Reason Pt with a Central, PICC or Fol: No Subjective Patient reports: No new complaints Changes from previous H/P or p: Changes Review of Systems: HEENT:Normal, CVS:Normal, RESPIRATORY:Normal, GI:Abnormal (Abdominal pain, nausea, 1 time of nonbloody non biliary watery vomitus. No flatus or bowel movement.), :Normal, MSK:Normal, NEURO:Normal Objective vital signs Vital Sign Date Time Temp Pulse Resp B/P (MAP) Pulse Ox O2 Delivery O2 Flow Rate FiO2 03/17/24 09:37 101 16 102/63 03/17/24 09:09 98.8 96 98.8 03/16/24 20:00 Room Air* 0 21 Total Intake and Output 03/16/24 03/16/24 03/17/24 15:00 23:00 07:00 Intake Total 300 ml 0 ml Output Total 300 ml Balance 0 ml 0 ml medications Current Medications Medications Dose Ordered Sig/Dom Route Start Time Stop Time Status Last Admin Dose Admin Lorazepam 1 mg Q6HP PRN IV 03/14/24 23:00 03/17/24 00:43 1 MG Lorazepam 1 mg Q5MINP PRN IV 03/14/24 23:00 Pantoprazole Sodium 40 mg DAILY IV 03/15/24 10:00 03/17/24 09:30 40 MG Morphine Sulfate 4 mg Q4HPRN PRN IV 03/15/24 03:30 03/17/24 09:37 4 MG Ceftriaxone Sodium 50 ml @ 100 mls/hr DAILY@1700 IV 03/15/24 17:00 03/16/24 17:53 100 MLS/HR Morphine Sulfate 1 mg Q4HP PRN IV 03/16/24 01:15 03/16/24 01:18 1 MG Lactated Ringer's 1,000 ml @ 150 mls/hr Q6H40M IV 03/16/24 15:45 03/16/24 22:25 150 MLS/HR Ondansetron HCl 4 mg Q6HR IV 03/16/24 16:00 Prochlorperazine Edisylate 5 mg Q4HPRN PRN IV 03/16/24 16:00 Thiamine HCl 100 mg DAILY IV 03/18/24 10:00 UNV Folic Acid 1 mg/ Dextrose 50.2 ml @ 200 mls/hr Q16M INJ 03/17/24 11:15 UNV Lorazepam 1 mg Q2HPRN PRN IV 03/17/24 11:15 UNV Examination: GENERAL:Normal (Mild distress), HEENT:Abnormal (Extremely dry mucosa), NECK:Normal, LUNGS:Normal, CVS:Normal, ABDOMEN:Abnormal (Epigastric tenderness, no guarding, distended abdomen tympanic,), MSK:Normal, SKIN:Normal, NEURO:Normal laboratory and microbiology Laboratory Tests 03/17/24 08:45 Test 03/17/24 08:45 Range/Units Serum Glucose 98 74-106 mg/dL Microbiology Date/Time Source Procedure Growth Status 03/15/24 18:13 Voided Urine Urine Culture - Preliminary Resulted Labs and/or images reviewed: Labs reviewed by me, Image(s) reviewed by me Problem List/Assessment/Plan Problem List/Assessment/Plan Hospitalization summary/ Assessment: A 33-year-old female with significant past medical history of anxiety disorder/panic disorder presented to the ED with severe, sudden-onset epigastric abdominal pain that became diffuse and radiated to her back, improving when sitting up and worsening when lying down. She experienced nausea, vomiting yellowish fluid, and watery stools without blood. She reported heavy daily alcohol intake, consuming 3-4 tall cans of beer the previous night, and expressed a desire to quit drinking. She denied fever, chills, chest pain, shortness of breath, and dysuria. Her past surgical history includes bilateral tubal ligation. She lives with her children, drinks 10-12 pints of beer daily, and has smoked half a pack of cigarettes daily for 17 years. She denies other illicit drug use. She was seen and examined at the bedside, still complaining of abdominal pain and nausea but feeling better with no new complaints. Plan: # acute pancreatitis likely due to alcohol toxicity: Lipase still waiting 9, trending down, CT abdomen pelvis stranding and signs of pancreatitis, workup negative for gallstone pancreatitis, status post IV fluid patient is still nauseous, on Zofran. The Zofran scheduled as needed Phenergan keep the patient on telemetry for QTC prolongation. NPO for now. If patient's pain worsens, new onset of fever, changes in abdominal examination, patient becomes hemodynamically stable repeat noncontrast abdomen CT and if concerning findings like surgical abdomen/perforation/cyst/ruptures/hematoma urgently consult General surgery. Also consider NG tube. # ileus: Last bowel movement 4 days back, no signs of obstruction in imaging, flatus negative. Not appropriate for starting p.o. diet or medications. Likely due to acute pancreatitis, pain, electrolyte disturbance. IV antibiotics to continue, underlying pancreatitis to treat. # intravascular fluid depletion: , overnight low urine output, Status post IV 1000 LR, 150 cc/hour alert to continue close input output to check. # UTI: UA positive, IV ceftriaxone to continue follow cultures/blood cultures # transaminitis, mild: Likely due to alcohol consumption/fatty liver. Interval follow up with primary care physician. If worsening than need Fibroscan/GI follow up. # hepatic steatosis: Likely due to alcohol consumption and prolonged high content of fat. Diet counseling healthy lifestyle counseling done. # heavy alcohol abuse: Has a prolonged history of alcohol use since teenage years. But for past 1-1 and half year patient is having heavy difficulty controlling emotions and anxiety needing self controlling with 6-20 beers cans each day, almost every day. Last alcohol 1 day prior to the hospitalization. # anxiety disorder/panic disorder: As needed Xanax, fluoxetine previously mildly help the patient. Patient self discontinued and continued on alcohol. # major depressive disorder: Denies any history of manic episodes, likely unipolar depression, patient has supportive family, not suicidal, coping mechanism poor flat affect, might consider starting the patient on fluoxetine 40 mg daily, as needed Xanax might help above. Patient needs close outpatient follow up with PCP and Psychiatry counseling. Patient is agreeable to follow up with alcohol rehab/alcoholic anonymous programs. # 17 Pack-year smoking history: 11 minute Counseled regarding smoking cessation. Patient offered for nicotine patch, declined. # high-risk of alcohol withdrawal: Patient is put on CIWA protocol, close monitoring, otherwise hemodynamically stable presumably. Status post IV banana bag x1. IV supplements to continue with thiamine, folate and when possible multivitamins. # high-risk of refeeding syndrome: Daily follow up of phosphate, magnesium, potassium and other electrolytes when patient starts diet. Close follow up and appropriate replenishment needed. # history of bilateral tubal ligation Diet: NPO for now until nausea subsides GI prophylaxis: protonix 40mg continue DVT prophylaxis: Lovenox to continue Bowel regimen: Not needed now as GI motility limited. Barriers to discharge: Medical diagnosis and management in progress. Patient lives in home with her kids and parents. Has a robust family support and. Consider social work for counseling/information regarding alcohol cessation/rehab. PCP: Yet to establish. Specialist Relevant To Admission: Psychiatric, surgery will be consulted as needed. Patient care and plan discussed with Dr. Ghotra Disposition: Patient remains in TELE Plan discussed with: Patient, Other (Primary team, RN.) My Orders My Orders Orders - MODESTO GONZALEZ RESIDENT Procedure Category Date Status Time Lactated Ringer's PHA 03/16/24 In Process 15:45 Kub Abdomen Single XY 03/16/24 Resulted View 15:45 Ondansetron Hcl PHA 03/16/24 In Process (Zofran) 16:00 Prochlorperazine Inj PHA 03/16/24 In Process (Compazine Inj) 16:00 Double End Sewer ORDERS 03/16/24 Transmitted 15:49 Transfer Orders XFER 03/16/24 Transmitted 15:49 Discontinue Tele MARÍA ELENA 03/17/24 In Process 11:07 Transfer Orders XFER 03/17/24 Transmitted 11:07 Communication Order ORDERS 03/17/24 Transmitted 11:09 Magnesium LAB 03/17/24 Logged 11:10 Thiamine Inj PHA 03/18/24 Logged 10:00 Thiamine Inj PHA 03/17/24 Logged 11:15 D5w 5% (Dextrose 5%) PHA 03/17/24 Logged W/Folic Acid 11:15 Lorazepam 2mg/Ml Inj PHA 03/17/24 Logged (Ativan Inj) 11:15 Etoh Withdrawal MARÍA ELENA 03/17/24 In Process Assessment 11:10 Etoh Withdrawal MARÍA ELENA 03/17/24 In Process Assessment 11:10 Date of Service: Mar 16, 2024 Billing Provider: KYLE SHARP MD Common Visit Codes: [id number] INP/OBS CARE(HIGH) MODESTO GONZALEZ Mar 17, 2024 11:30 KYLE SHARP MD Mar 18, 2024 21:13
[2024-03-17] MEDS: POTASSIUM CHLORIDE 40 MEQ, LIDOCAINE 1% (LOCAL ANESTH.) 4 ML in SODIUM CHL 0.9% 250 ML IV ONE ×2 (11:42→15:48)
[2024-03-17] MEDS: THIAMINE 100mg/ml INJ (200mg/2ml VIAL) IV ONE (11:48)
[2024-03-17] MEDS ORDERED: IOHEXOL 300 MG/ML 100ML BOTTLE IJ ONE (15:04)
--- NOTE | 2024-03-17 15:41 | DVH ---
Exam: CT CT AB PEL WITH IV CON ONLY History: Pancreatitis, possible complication COMPARISON: None Technique: Multidetector spiral CT of the abdomen and pelvis was performed from lung bases to pubic s ymphysis. Intravenous contrast was administered during this examination. Portal venous imaging was obtained. Axial, coronal and sagittal multiplanar reformats were performed by the technologist on a separate workstation. Radiation Dose : 1. Abdomen/Pelvis: CTDIvol 10.4 mGy, DLP 616.68 mGy*cm. Findings: Lung Bases: Dependent atelectasis. Small bilateral pleural effusions. Liver: Hepatic steatosis and hepatomegaly. Gallbladder and Biliary Tree: Unremarkable Spleen: Splenomegaly. Pancreas: Edematous appearance to the pancreas with mild phlegmonous type change around the pancreati c tail and mild inflammatory change. Adrenal Glands: Unremarkable Kidneys: No hydronephrosis. Bladder: Unremarkable Bowel: The stomach is grossly normal in appearance. Small bowel and colon are normal in caliber and d istribution. The appendix is not visualized; however, no secondary findings of acute appendicitis id entified. Ascites: Small volume ascites. Lymphadenopathy: No mesenteric, retroperitoneal or periportal lymphadenopathy. Abdominal Wall and Mesentery: Unremarkable. Vasculature: The visualized abdominal aorta is normal in size and caliber. Abdominal and pelvic vess els demonstrate normal enhancement. Pelvic Organs: Unremarkable Musculoskeletal: No aggressive focal bony lesions, acute fractures or dislocation. IMPRESSION: Diffusely edematous appearance to the pancreas with peripancreatic inflammatory change and phlegmonou s type change near the pancreatic tail. Findings may represent changes of pancreatitis. Clinical cor relation advised. No abscess or pancreatic necrosis at this time. Hepatic steatosis. Hepatomegaly. Splenomegaly. Radiation optimization: All CT scans at this facility use at least one of these dose optimization kelton hniques: automated exposure control mA and/or kV adjustment per patient size (includes targeted exam s where dose is matched to clinical indication) or iterative reconstruction.
[2024-03-17] MEDS: D5W/SOD CHL 0.45% 1,000 ML IV SCH (15:48)
[2024-03-17] MEDS: FOLIC ACID 1 MG in D5W 5% 50 ML INJ SCH (17:22)
--- NOTE | 2024-03-17 18:37 | DVHPNRES ---
Progress Note Date Seen: Mar 17, 2024 Resident Creating Document: MANJU BROOKS RIGOBERTO Has the PT tested + for MRSA If YES, has PT been informed?: No Medical Necessity Reason Pt with a Central, PICC or Fol: No Subjective Review of Systems The patient is a 33-year-old female with no significant past medical history who came to the ED with a chief complaint of severe abdominal pain that started a few hours prior to presentation. The patient reports that she woke up with sudden onset epigastric abdominal pain, which later became diffuse. The pain radiated to her back from the epigastrium, improved when sitting up, and worsened when lying down. The patient reported associated nausea and multiple episodes of vomiting, which mostly consisted of yellowish-colored fluid but no blood. She also had 3-4 episodes of watery stools without any associated blood. The patient reports heavy daily alcohol intake and mentioned that the previous night she consumed about 3-4 tall cans of beer. The patient denied fever, chills, chest pain, shortness of breath, and dysuria. She reports that she has been trying to stop drinking alcohol but has been unable to and wants support to help her quit drinking. Past medical history: None Past surgical history: Bilateral Tubal ligation Social history: Patient lives with her children and reports drinking about 10- 12 beer pints every day, 17 year half pack a day cigarette smoking, denies other illicit drug use. Home medications: none Today, patient seen and examined at the bedside. Patient is still complained of abdominal pain and nausea. Patient reports: No new complaints, Feels better Changes from previous H/P or p: Changes Objective vital signs Vital Sign Date Time Temp Pulse Resp B/P (MAP) Pulse Ox O2 Delivery O2 Flow Rate FiO2 03/17/24 17:13 97.6 107 16 109/75 (86) 96 97.6 03/17/24 08:05 Room Air* 0 21 Total Intake and Output 03/16/24 03/16/24 03/17/24 15:00 23:00 07:00 Intake Total 300 ml 0 ml Output Total 300 ml Balance 0 ml 0 ml medications Current Medications Medications Dose Ordered Sig/Dom Route Start Time Stop Time Status Last Admin Dose Admin Lorazepam 1 mg Q6HP PRN IV 03/14/24 23:00 03/17/24 00:43 1 MG Lorazepam 1 mg Q5MINP PRN IV 03/14/24 23:00 Pantoprazole Sodium 40 mg DAILY IV 03/15/24 10:00 03/17/24 09:30 40 MG Morphine Sulfate 4 mg Q4HPRN PRN IV 03/15/24 03:30 03/17/24 14:25 4 MG Morphine Sulfate 1 mg Q4HP PRN IV 03/16/24 01:15 03/16/24 01:18 1 MG Ondansetron HCl 4 mg Q6HR IV 03/16/24 16:00 03/17/24 17:35 4 MG Prochlorperazine Edisylate 5 mg Q4HPRN PRN IV 03/16/24 16:00 Thiamine HCl 100 mg DAILY IV 03/18/24 10:00 Lorazepam 1 mg Q2HPRN PRN IV 03/17/24 11:15 Folic Acid 1 mg/ Dextrose 50.2 ml @ 200.8 mls/ hr DAILY INJ 03/17/24 12:00 03/17/24 17:22 200.8 MLS/HR Dextrose/Sodium Chloride 1,000 ml @ 100 mls/hr Q10H IV 03/17/24 13:45 03/17/24 23:30 03/17/24 15:48 100 MLS/HR Examination General Appearance: Alert, Oriented X3, Cooperative, No acute distress HEENT: Atraumatic, PERRLA, EOMI, Mucous membrane moist/pink Respiratory: Clear to auscultation, Normal air movement Cardiovascular: Regular rate, Normal S1, Normal S2, No murmurs, no chest wall tenderness Abdominal: Mild abdominal tenderness Extremities: No clubbing, No cyanosis, No edema, Normal pulses, No tenderness/swelling Skin: No rashes, No breakdown, No significant lesion Neuro: Normal gait, Normal speech, Strength at 5/5 X4 ext, Normal tone, Sensation intact, Cranial nerves 3-12 NL, Reflexes 2+ Psych/Mental Status: Mental status NL, Mood NL laboratory and microbiology Laboratory Tests 03/17/24 08:45 Test 03/17/24 08:45 Range/Units Serum Glucose 98 74-106 mg/dL Microbiology Date/Time Source Procedure Growth Status 03/15/24 18:13 Voided Urine Urine Culture - Preliminary Resulted Labs and/or images reviewed: Labs reviewed by me, Image(s) reviewed by me Problem List/Assessment/Plan Problem List/Assessment/Plan Acute abdominal pain likely due to pancreatitis Acute pancreatitis likely Alcohol-induced Acute intractable nausea and vomiting likely due to pancreatitis lipase elevated at 1289, downtrending CT abdomen pelvis without contrast showed stranding and fluid around the pancreas Repeat of CT scan on 03/17 shows, diffusely edematous appearance to the pancreas with peripancreatic inflammatory change and phlegmonous type change near the pancreatic tail. Findings may represent changes of pancreatitis. Clinical correlation advised. No abscess or pancreatic necrosis at this time gallbladder ultrasound showed no gallstone or sludge, no pericholecystic fluid, negative ultrasound Haile sign patient given 1 L NS bolus, 700 mL LR bolus Empiric antibiotic, Zosyn DW 5 half normal saline at 100 mL/hour morphine for pain control NPO Zofran p.r.n. for nausea, vomiting Hepatic steatosis Transaminitis likely due to chronic heavy alcohol consumption Chronic alcohol use disorder High risk of alcohol withdrawal, [facility] protocol AST 225, ALT 83 RUQ ultrasound shows hepatomegaly with findings of steatosis patient counseled on alcohol cessation for more than 15 minutes, resources to be provided to help with de-addiction excellent FCM current smoker Patient was consulted for smoking cessation for more than 13 minutes Hypokalemia, repleted History of bilateral tubal ligation Urinary tract infection likely acute cystitis UA shows UTI picture IV ceftriaxone Urine cultureurine sean History of depression/anxiety/panic attack Follow up on outpatient basis DIET: NPO DVT PROPHYLAXIS: Lovenox GI PROPHYLAXIS:: Protonix BOWEL REGIMEN: Patient is NPO CODE STATUS: Goal of care discussed for more than 27 minute, full code DISPOSITION: Med surge Patient's status discussed with the patient. Case discussed with Dr. Ghotra Plan discussed with: Patient, Other (RN) My Orders My Orders Orders - MANJU BROOKS RESDIMALGORZATA Procedure Category Date Status Time Ct Ab Pel With Iv Con CT 03/17/24 Resulted Only 13:29 D5w/Sod Chl 0.45% PHA 03/17/24 In Process (D5w 1/2ns) 13:45 Dietary Evaluation Review Comments: 1) If patient remains NPO for more than 7 days, consider EN/TPN to meet at least 75% of estimated needs. 2) If GI route is preferred, consider Jevity 1.2 @ 50 mL/hr goal rate as tolerated. TF regimen will provide 1,440 kcals, 67g pro, and 968 mL free H2O. TF regimen will meet ~ 77% daily estimated energy needs and ~74% daily estimated protein needs. 3) Advance patient diet when medically feasible to low-fat diet. 4) Monitor electrolytes when resuming feeding. 5) Encourage ETOH cessation. Expected Outcomes/Goals: 1) Patient labs or appetite to improve 2) Patient to receive nutrition support within 7 days of NPO status 3) F/u in 2-3 days Date of Service: Mar 17, 2024 Billing Provider: KYLE SHARP MD Common Visit Codes: [id number] INP/OBS CARE(HIGH) MANJU BROOKS RESDIENT Mar 17, 2024 18:37 KYLE SHARP MD Mar 18, 2024 21:34
[2024-03-18] VITALS (7 sets, daily range): BP systolic 109–126; BP diastolic 69–86; PULSE 87–103; RESP 17–19; TEMP 98.9–99.6; O2SAT 93–100
[2024-03-18 08:06] LABS: Basophils # (auto) 0 10 ^3/uL (0-0.2); Basophils % (auto) 0.2 % (0.0-2.0); Eosinophils # (auto) 0 10 ^3/uL (0-0.8); Eosinophils % (auto) 0.7 % (0.0-7.0); Hematocrit 35.9 % (36.0-46.0); Hemoglobin 12.5 g/dL (12.2-16.2); Lymphocytes # (auto) 0.6 10 ^3/uL (0.4-5.4); Lymphocytes % (auto) 8.8 % (10.0-50.0); Mean Corpuscular Hemoglobin 33.4 pg (28.0-32.0); Mean Corpuscular Hgb Conc. 34.9 g/dL (32.0-36.0); Mean Corpuscular Volume 95.7 fL (80.0-100.0); Monocytes # (auto) 0.7 10 ^3/uL (0-1.3); Neutrophils # (auto) 5.8 10 ^3/uL (1.6-8.6); Neutrophils % (auto) 80.3 % (37.0-80.0); Platelet Count (auto) 160 10^3/uL (140-450); Red Blood Cells 3.76 10^6/uL (4.0-5.20); White Blood Cell 7.2 10^3/uL (4.4-10.8)
[2024-03-18 08:22] LABS: Alanine Aminotransferase 22 U/L (7-40); Albumin 3.2 g/dL (3.2-4.8); Alkaline Phosphatase 74 U/L (46-116); Anion Gap 11 (5-15); Calcium 8.8 mg/dL (8.7-10.4); Carbon Dioxide 21 mmol/L (20-31); Chloride 104 mmol/L (98-107); Glucose 85 mg/dL (74-106); Sodium 136 mmol/L (136-145)
[2024-03-18 08:23] LABS: Aspartate Aminotransferase 40 U/L (13-40); BUN/Creatinine Ratio 11.6 (10.0-20.0); Bilirubin, Total 0.6 mg/dL (0.2-1.0); Blood Urea Nitrogen < 5 mg/dL (9-23); Potassium 3.3 mmol/L (3.5-5.1)
[2024-03-18 08:24] LABS: Total Protein 5.7 g/dL (5.7-8.2)
[2024-03-18 08:25] LABS: Amylase 226 U/L (30-118)
[2024-03-18 09:03] LABS: Lipase 100 U/L (12-53)
[2024-03-18] MEDS: THIAMINE 100mg/ml INJ (200mg/2ml VIAL) IV SCH (09:50)
[2024-03-18] MEDS: POTASSIUM CHLORIDE 60 MEQ, LIDOCAINE 1% (LOCAL ANESTH.) 6 ML in SODIUM CHL 0.9% 500 ML IV ONE (10:15)
--- NOTE | 2024-03-18 12:29 | DVHPNRES ---
Progress Note Date Seen: Mar 18, 2024 Resident Creating Document: TONO CORADO RESIDENT Has the PT tested + for MRSA If YES, has PT been informed?: No Medical Necessity Reason Pt with a Central, PICC or Fol: No Medical Necessity Reason severe abdominal pain nausea and vomiting Subjective Review of Systems This is a 33-year-old female with a history anxiety, panic disorder and major depression presented to the ED on 03/15/2024 with a chief complaint of severe abdominal pain that started a few hours prior to presentation. The patient reported that she woke up with sudden onset epigastric abdominal pain, which later became diffuse. The pain radiated to her back from the epigastrium, improved when sitting up, and worsened when lying down. Patient reported associated nausea and multiple episodes of vomiting, which mostly consisted of yellowish-colored fluid but no blood. She also had 3-4 episodes of watery stools without any associated blood. The patient reported heavy daily alcohol intake and mentioned that the previous night she consumed about 3-4 tall cans of beer. The patient denied fever, chills, chest pain, shortness of breath, and dysuria. She reports that she has been trying to stop drinking alcohol but has been unable to and wants support to help her quit drinking. Initial labs on admission reveal wbc: 6.5--> 7.2, lipase: 1289 otherwise all blood works was unremarkable. PN: 03/18/2024 Patient seen and examined by me today. She is lying in bed still complaining of abdominal pain radiating to his her back, nausea and vomited yesterday. Patient has been NPO since admission 3 days ago. Vitals today are unremarkable all parameters within normal limit. Patient on Zofran for the nausea and also morphine for pain. Lab values today reveals Lipase: 100 ( improving) K: 3.3 WBC: 7.5 Patient wants to talk to a psychiatrist regarding anxiety,depression and also panic disorder stool Objective vital signs Vital Sign Date Time Temp Pulse Resp B/P (MAP) Pulse Ox O2 Delivery O2 Flow Rate FiO2 03/18/24 10:27 85 19 121/78 03/18/24 09:00 99.0 100 99.0 03/18/24 08:00 Room Air* 0 21 Total Intake and Output 03/17/24 03/17/24 03/18/24 15:00 23:00 07:00 Intake Total 1000 ml 1074.2 ml 0 ml Balance 1000 ml 1074.2 ml 0 ml medications Current Medications Medications Dose Ordered Sig/Dom Route Start Time Stop Time Status Last Admin Dose Admin Lorazepam 1 mg Q6HP PRN IV 03/14/24 23:00 03/17/24 21:57 1 MG Lorazepam 1 mg Q5MINP PRN IV 03/14/24 23:00 Pantoprazole Sodium 40 mg DAILY IV 03/15/24 10:00 03/18/24 09:58 40 MG Morphine Sulfate 1 mg Q4HP PRN IV 03/16/24 01:15 03/18/24 10:27 1 MG Ondansetron HCl 4 mg Q6HR IV 03/16/24 16:00 03/18/24 05:10 4 MG Prochlorperazine Edisylate 5 mg Q4HPRN PRN IV 03/16/24 16:00 Thiamine HCl 100 mg DAILY IV 03/18/24 10:00 03/18/24 09:58 100 MG Lorazepam 1 mg Q2HPRN PRN IV 03/17/24 11:15 Folic Acid 1 mg/ Dextrose 50.2 ml @ 200.8 mls/ hr DAILY INJ 03/17/24 12:00 03/18/24 10:17 200.8 MLS/HR Examination General Appearance: Alert, Oriented X3, Cooperative, No acute distress HEENT: Atraumatic, PERRLA, EOMI, Mucous membrane moist/pink Respiratory: Clear to auscultation, Normal air movement Cardiovascular: Regular rate, Normal S1, Normal S2, No murmurs, no chest wall tenderness Abdominal: Abdominal tenderness in all quadrants Extremities: No clubbing, No cyanosis, No edema, Normal pulses, No tenderness/swelling Skin: No rashes, No breakdown, No significant lesion Neuro: Normal gait, Normal speech, Strength at 5/5 X4 ext, Normal tone, Sensation intact, Cranial nerves 3-12 NL, Reflexes 2+ Psych/Mental Status: Mental status NL, Mood NL laboratory and microbiology Laboratory Tests 03/18/24 06:54 Test 03/18/24 06:54 Range/Units Serum Glucose 85 74-106 mg/dL Microbiology Date/Time Source Procedure Growth Status 03/15/24 18:13 Voided Urine Urine Culture - Final Complete Problem List/Assessment/Plan Problem List/Assessment/Plan Acute abdominal pain likely due to pancreatitis Acute pancreatitis likely Alcohol-induced Acute intractable nausea and vomiting likely due to pancreatitis lipase trending downward. 1289--> 935--> 100 CT abdomen pelvis without contrast showed stranding and fluid around the pancreas Repeat of CT scan on 03/17 shows, diffusely edematous appearance to the pancreas with peripancreatic inflammatory change and phlegmonous type change near the pancreatic tail. Findings may represent changes of pancreatitis. Clinical correlation advised. No abscess or pancreatic necrosis at this time gallbladder ultrasound showed no gallstone or sludge, no pericholecystic fluid, negative ultrasound Haile sign Empiric antibiotic, Zosyn Continue DW 5 half normal saline at 100 mL/hour morphine for pain control Continue to keep NPO Zofran p.r.n. for nausea, vomiting Hepatic steatosis Transaminitis likely due to chronic heavy alcohol consumption Chronic alcohol use disorder High risk of alcohol withdrawal, [facility] protocol AST/ALT: WNL RUQ ultrasound shows hepatomegaly with findings of steatosis patient counseled on alcohol cessation for more than 15 minutes, resources to be provided to help with de-addiction excellent FCM current smoker Patient was consulted for smoking cessation for more than 13 minutes Hypokalemia-> replete Urinary tract infection likely acute cystitis UA shows UTI picture IV ceftriaxone Urine culture Mild malnutrition --> recurrent emesis --> albumin: 2.8 History of bilateral tubal ligation History of depression/anxiety/panic attack --> Psyche consult or follow up outpatient Plan: Diet: Keep NPO because patient still complains for abdominal pains. DVT PROPHYLAXIS: Lovenox GI PROPHYLAXIS:: Protonix BOWEL REGIMEN: Patient is NPO CODE STATUS: Full Goal of care discussed for more than 25 minute Case and Plan discussed with Dr. Aiken Plan discussed with: Patient, Other (Nurse) My Orders My Orders Orders - TONO CORADO RESIDENT Procedure Category Date Status Time Potassium Chloride PHA 03/18/24 In Process (Potassium Chloride). 10:15 Dietary Evaluation Review Comments: 1) If patient remains NPO for more than 7 days, consider EN/TPN to meet at least 75% of estimated needs. 2) If GI route is preferred, consider Jevity 1.2 @ 50 mL/hr goal rate as tolerated. TF regimen will provide 1,440 kcals, 67g pro, and 968 mL free H2O. TF regimen will meet ~ 77% daily estimated energy needs and ~74% daily estimated protein needs. 3) Advance patient diet when medically feasible to low-fat diet. 4) Monitor electrolytes when resuming feeding. 5) Encourage ETOH cessation. Expected Outcomes/Goals: 1) Patient labs or appetite to improve 2) Patient to receive nutrition support within 7 days of NPO status 3) F/u in 2-3 days Date of Service: Mar 18, 2024 Billing Provider: CLAIRE AIKEN MD Common Visit Codes: [id number] INP/OBS CARE(HIGH) TONO CORADO RESIDENT Mar 18, 2024 12:29 CLAIRE AIKEN MD Mar 19, 2024 06:42
[2024-03-19] VITALS (8 sets, daily range): BP systolic 103–135; BP diastolic 64–86; PULSE 89–101; RESP 16–19; TEMP 98–99.1; O2SAT 92–99
[2024-03-19 07:08] LABS: Anion Gap 10 (5-15); Carbon Dioxide 23 mmol/L (20-31); Chloride 104 mmol/L (98-107); Sodium 137 mmol/L (136-145)
[2024-03-19 07:09] LABS: Calcium 8.8 mg/dL (8.7-10.4)
[2024-03-19 07:14] LABS: Glucose 78 mg/dL (74-106)
[2024-03-19 07:16] LABS: BUN/Creatinine Ratio 10.9 (10.0-20.0); Blood Urea Nitrogen < 5 mg/dL (9-23); Lipase 117 U/L (12-53); Potassium 3.3 mmol/L (3.5-5.1)
[2024-03-19] MEDS ORDERED: LACTATED RINGER'S 1,000 ML IV SCH (08:00)
--- NOTE | 2024-03-19 09:36 | DVHPNRES ---
Progress Note Date Seen: Mar 19, 2024 Resident Creating Document: TONO CORADO RESIDENT Has the PT tested + for MRSA If YES, has PT been informed?: No Medical Necessity Reason Pt with a Central, PICC or Fol: No Medical Necessity Reason Acute pancreatitis Subjective Review of Systems This is a 33-year-old female with a history anxiety, panic disorder and major depression presented to the ED on 03/15/2024 with a chief complaint of severe abdominal pain that started a few hours prior to presentation. The patient reported that she woke up with sudden onset epigastric abdominal pain, which later became diffuse. The pain radiated to her back from the epigastrium, improved when sitting up, and worsened when lying down. Patient reported associated nausea and multiple episodes of vomiting, which mostly consisted of yellowish-colored fluid but no blood. She also had 3-4 episodes of watery stools without any associated blood. The patient reported heavy daily alcohol intake and mentioned that the previous night she consumed about 3-4 tall cans of beer. The patient denied fever, chills, chest pain, shortness of breath, and dysuria. She reports that she has been trying to stop drinking alcohol but has been unable to and wants support to help her quit drinking. Initial labs on admission reveal wbc: 6.5--> 7.2, lipase: 1289 otherwise all blood works was unremarkable. PN: 03/18/2024 Patient seen and examined by me today. She is lying in bed still complaining of abdominal pain radiating to his her back, nausea and vomited yesterday. Patient has been NPO since admission 3 days ago. Vitals today are unremarkable all parameters within normal limit. Patient on Zofran for the nausea and also morphine for pain. Lab values today reveals Lipase: 100 ( improving) K: 3.3 WBC: 7.5 PN: 03/19/2024: Patient seen and examined today today at the bed side. She was lying in bed. Patient is complaining about abdominal pain not getting better. She said we are not getting her the right medications or the right dosages. On admission, she received morphine 4mg q4hr and she is upset that we decrease the dose. she was not get getting her right pain medications and does not know why her morphine was decreased from 4mg to 1mg. Unfortunately, patient didn't not receive any IV fluids yesterday. Her lab this morning showed lipase at 117. Her potassium level is consistently low at 3.3. Magnesium level is1.9. Potassium and magnesium replaced this morning and resumed on her D5W in NS running at 100ml/hr. Because the patient is still complaining of severe abdominal pains, I any keeping her NPO. Plan is to consider clear fluid diet tomorrow. Objective vital signs Vital Sign Date Time Temp Pulse Resp B/P (MAP) Pulse Ox O2 Delivery O2 Flow Rate FiO2 03/19/24 08:50 98.7 100 17 111/73 (86) 99 98.7 03/18/24 20:00 Room Air* 0 21 Total Intake and Output 03/18/24 03/18/24 03/19/24 15:00 23:00 07:00 Intake Total 50.2 ml 0 ml 0 ml Output Total 3 ml 1 ml Balance 50.2 ml -3 ml -1 ml medications Current Medications Medications Dose Ordered Sig/Dom Route Start Time Stop Time Status Last Admin Dose Admin Lorazepam 1 mg Q6HP PRN IV 03/14/24 23:00 03/19/24 01:54 1 MG Lorazepam 1 mg Q5MINP PRN IV 03/14/24 23:00 Pantoprazole Sodium 40 mg DAILY IV 03/15/24 10:00 03/19/24 08:40 40 MG Morphine Sulfate 1 mg Q4HP PRN IV 03/16/24 01:15 03/19/24 08:44 1 MG Ondansetron HCl 4 mg Q6HR IV 03/16/24 16:00 03/19/24 08:41 4 MG Prochlorperazine Edisylate 5 mg Q4HPRN PRN IV 03/16/24 16:00 Thiamine HCl 100 mg DAILY IV 03/18/24 10:00 03/19/24 08:41 100 MG Lorazepam 1 mg Q2HPRN PRN IV 03/17/24 11:15 Folic Acid 1 mg/ Dextrose 50.2 ml @ 200.8 mls/ hr DAILY INJ 03/17/24 12:00 03/18/24 10:17 200.8 MLS/HR Examination General Appearance: Alert, Oriented X3, Cooperative, No acute distress HEENT: Atraumatic, PERRLA, EOMI, Mucous membrane moist/pink Respiratory: Clear to auscultation, Normal air movement Cardiovascular: Regular rate, Normal S1, Normal S2, No murmurs, no chest wall tenderness Abdominal: Abdominal tenderness in all quadrants Extremities: No clubbing, No cyanosis, No edema, Normal pulses, No tenderness/swelling Skin: No rashes, No breakdown, No significant lesion Neuro: Normal gait, Normal speech, Strength at 5/5 X4 ext, Normal tone, Sensation intact, Cranial nerves 3-12 NL, Reflexes 2+ Psych/Mental Status: Mental status NL, Mood NL laboratory and microbiology Laboratory Tests 03/19/24 05:57 03/18/24 06:54 Test 03/19/24 05:57 Range/Units Serum Glucose 78 74-106 mg/dL Microbiology Date/Time Source Procedure Growth Status 03/15/24 18:13 Voided Urine Urine Culture - Final Complete Problem List/Assessment/Plan Problem List/Assessment/Plan Acute abdominal pain likely due to pancreatitis Acute pancreatitis likely Alcohol-induced Acute intractable nausea and vomiting likely due to pancreatitis lipase trending downward. 1289--> 935--> 100-->117 CT abdomen pelvis without contrast showed stranding and fluid around the pancreas Repeat of CT scan on 03/17 shows, diffusely edematous appearance to the pancreas with peripancreatic inflammatory change and phlegmonous type change near the pancreatic tail. Findings may represent changes of pancreatitis. Clinical correlation advised. No abscess or pancreatic necrosis at this time gallbladder ultrasound showed no gallstone or sludge, no pericholecystic fluid, negative ultrasound Haile sign Continue DW 5 half normal saline at 100 mL/hour morphine for pain control Continue to keep NPO Zofran p.r.n. for nausea, vomiting Hepatic steatosis Transaminitis likely due to chronic heavy alcohol consumption Chronic alcohol use disorder High risk of alcohol withdrawal, [facility] protocol AST/ALT: WNL RUQ ultrasound shows hepatomegaly with findings of steatosis patient counseled on alcohol cessation for more than 15 minutes, resources to be provided to help with de-addiction excellent FCM current smoker Patient was consulted for smoking cessation for more than 13 minutes Hypokalemia --> 3.3 --> replaced Urinary tract infection likely acute cystitis UA shows UTI picture IV ceftriaxone Urine culture Mild malnutrition --> recurrent emesis --> albumin: 2.8 History of bilateral tubal ligation History of depression/anxiety/panic attack --> Psyche consult or follow up outpatient Plan: Diet: Keep NPO because patient still complains for abdominal pains. DVT PROPHYLAXIS: Lovenox GI PROPHYLAXIS:: Protonix BOWEL REGIMEN: Patient is NPO CODE STATUS: Full Goal of care discussed for more than 25 minute Case and Plan discussed with Dr. Aiken Plan discussed with: Patient My Orders My Orders Orders - TONO CORADO Procedure Category Date Status Time *Tele Psych Consult CONS 03/18/24 Transmitted 12:53 Potassium Chloride PHA 03/19/24 Logged (Potassium Chloride). 09:00 Magnesium Sulfate PHA 03/19/24 Logged 1gm/100ml 09:00 D5w/Sod Chl 0.45% PHA 03/19/24 Logged (D5w 1/2ns) 09:15 Dietary Evaluation Review Comments: 1) If patient remains NPO for more than 7 days, consider EN/TPN to meet at least 75% of estimated needs. 2) If GI route is preferred, consider Jevity 1.2 @ 50 mL/hr goal rate as tolerated. TF regimen will provide 1,440 kcals, 67g pro, and 968 mL free H2O. TF regimen will meet ~ 77% daily estimated energy needs and ~74% daily estimated protein needs. 3) Advance patient diet when medically feasible to low-fat diet. 4) Monitor electrolytes when resuming feeding. 5) Encourage ETOH cessation. Expected Outcomes/Goals: 1) Patient labs or appetite to improve 2) Patient to receive nutrition support within 7 days of NPO status 3) F/u in 2-3 days Date of Service: Mar 19, 2024 Billing Provider: CLAIRE AIKEN MD Common Visit Codes: [id number] INP/OBS CARE(HIGH) TONO CORADO Mar 19, 2024 09:36 CLAIRE AIKEN MD Mar 19, 2024 19:52
[2024-03-19] MEDS: D5W/SOD CHL 0.45% 1,000 ML IV ONE (12:39)
[2024-03-19] MEDS: PROCHLORPERAZINE EDISYLATE 5 MG/ML 2ML VIAL IV PRN (12:51)
[2024-03-19] MEDS: cefTRIAXone 1GM/50ML D5W 50 ML IV SCH (12:51)
[2024-03-19] MEDS: MAGNESIUM SULFATE 1GM/100ML 100 ML IV ONE (12:55)
[2024-03-19] MEDS: POTASSIUM CHLORIDE 60 MEQ, LIDOCAINE 1% (LOCAL ANESTH.) 6 ML in SODIUM CHL 0.9% 500 ML IV ONE (12:58)
[2024-03-19 19:33] LABS: Potassium 3.7 mmol/L (3.5-5.1)
[2024-03-19 19:40] LABS: Magnesium 2.1 mg/dL (1.6-2.6)
[2024-03-20] VITALS (7 sets, daily range): BP systolic 100–117; BP diastolic 61–78; PULSE 94–109; RESP 17–20; TEMP 98.2–98.9; O2SAT 95–98
[2024-03-20 14:18] LABS: Chloride 103 mmol/L (98-107)
[2024-03-20 14:19] LABS: Anion Gap 8 (5-15); Carbon Dioxide 23 mmol/L (20-31)
[2024-03-20 14:20] LABS: Potassium 3.2 mmol/L (3.5-5.1); Sodium 134 mmol/L (136-145)
[2024-03-20 14:24] LABS: BUN/Creatinine Ratio 10.6 (10.0-20.0); Blood Urea Nitrogen < 5 mg/dL (9-23); Glucose 105 mg/dL (74-106); Lipase 148 U/L (12-53)
--- NOTE | 2024-03-20 15:08 | DVHPNRES ---
Progress Note Date Seen: Mar 20, 2024 Resident Creating Document: TONO CORADO RESIDENT Has the PT tested + for MRSA If YES, has PT been informed?: No Medical Necessity Reason Pt with a Central, PICC or Fol: No Medical Necessity Reason Acute pancreatitis Subjective Review of Systems This is a 33-year-old female with a history anxiety, panic disorder and major depression presented to the ED on 03/15/2024 with a chief complaint of severe abdominal pain that started a few hours prior to presentation. The patient reported that she woke up with sudden onset epigastric abdominal pain, which later became diffuse. The pain radiated to her back from the epigastrium, improved when sitting up, and worsened when lying down. Patient reported associated nausea and multiple episodes of vomiting, which mostly consisted of yellowish-colored fluid but no blood. She also had 3-4 episodes of watery stools without any associated blood. The patient reported heavy daily alcohol intake and mentioned that the previous night she consumed about 3-4 tall cans of beer. The patient denied fever, chills, chest pain, shortness of breath, and dysuria. She reports that she has been trying to stop drinking alcohol but has been unable to and wants support to help her quit drinking. Initial labs on admission reveal wbc: 6.5--> 7.2, lipase: 1289 otherwise all blood works was unremarkable. PN: 03/18/2024 Patient seen and examined by me today. She is lying in bed still complaining of abdominal pain radiating to his her back, nausea and vomited yesterday. Patient has been NPO since admission 3 days ago. Vitals today are unremarkable all parameters within normal limit. Patient on Zofran for the nausea and also morphine for pain. Lab values today reveals Lipase: 100 ( improving) K: 3.3 WBC: 7.5 PN: 03/19/2024: Patient seen and examined today today at the bed side. She was lying in bed. Patient is complaining about abdominal pain not getting better. She said we are not getting her the right medications or the right dosages. On admission, she received morphine 4mg q4hr and she is upset that we decrease the dose. she was not get getting her right pain medications and does not know why her morphine was decreased from 4mg to 1mg. Unfortunately, patient didn't not receive any IV fluids yesterday. Her lab this morning showed lipase at 117. Her potassium level is consistently low at 3.3. Magnesium level is1.9. Potassium and magnesium replaced this morning and resumed on her D5W in NS running at 100ml/hr. Because the patient is still complaining of severe abdominal pains, I any keeping her NPO. Plan is to consider clear fluid diet tomorrow. PN: 03/20/2024: Patient is seen and examined today. She was sleeping bed. She is significantly improved from yesterday. Patient has been NPO for the past few days. patient is currently on morphine 1 mg every 4 hours p.r.n. We started clear liquid diet this morning. She is taking sips and so far is tolerating it well. The goal is to advance her diet as she can tolerate. Labs today shows Na 134, K: 3.2 and lipase 148 Objective vital signs Vital Sign Date Time Temp Pulse Resp B/P (MAP) Pulse Ox O2 Delivery O2 Flow Rate FiO2 03/20/24 14:10 103 18 111/72 03/20/24 12:57 98.2 96 98.2 03/20/24 08:00 Room Air* 0 21 Total Intake and Output 03/19/24 03/19/24 03/20/24 15:00 23:00 07:00 Intake Total 0 ml 0 ml Output Total 250 ml Balance 0 ml -250 ml medications Current Medications Medications Dose Ordered Sig/Dom Route Start Time Stop Time Status Last Admin Dose Admin Lorazepam 1 mg Q6HP PRN IV 03/14/24 23:00 03/19/24 20:56 1 MG Lorazepam 1 mg Q5MINP PRN IV 03/14/24 23:00 Pantoprazole Sodium 40 mg DAILY IV 03/15/24 10:00 03/20/24 09:09 40 MG Morphine Sulfate 1 mg Q4HP PRN IV 03/16/24 01:15 03/20/24 14:10 1 MG Ondansetron HCl 4 mg Q6HR IV 03/16/24 16:00 03/20/24 14:09 4 MG Prochlorperazine Edisylate 5 mg Q4HPRN PRN IV 03/16/24 16:00 03/20/24 09:10 5 MG Thiamine HCl 100 mg DAILY IV 03/18/24 10:00 03/20/24 09:10 100 MG Lorazepam 1 mg Q2HPRN PRN IV 03/17/24 11:15 Folic Acid 1 mg/ Dextrose 50.2 ml @ 200.8 mls/ hr DAILY INJ 03/17/24 12:00 03/20/24 11:30 200.8 MLS/HR Ceftriaxone Sodium 50 ml @ 100 mls/hr DAILY@09 IV 03/19/24 09:30 03/20/24 09:10 100 MLS/HR Examination General Appearance: Alert, Oriented X3, Cooperative, No acute distress HEENT: Atraumatic, PERRLA, EOMI, Mucous membrane moist/pink Respiratory: Clear to auscultation, Normal air movement Cardiovascular: Regular rate, Normal S1, Normal S2, No murmurs, no chest wall tenderness Abdominal: Abdominal tenderness in all quadrants-->improving Extremities: No clubbing, No cyanosis, No edema, Normal pulses, No tenderness/swelling Skin: No rashes, No breakdown, No significant lesion Neuro: Normal gait, Normal speech, Strength at 5/5 X4 ext, Normal tone, Sensation intact, Cranial nerves 3-12 NL, Reflexes 2+ Psych/Mental Status: Mental status NL, Mood NL laboratory and microbiology Laboratory Tests 03/20/24 13:11 03/18/24 06:54 Test 03/20/24 13:11 Range/Units Serum Glucose 105 74-106 mg/dL Microbiology Date/Time Source Procedure Growth Status 03/15/24 18:13 Voided Urine Urine Culture - Final Complete Problem List/Assessment/Plan Problem List/Assessment/Plan Acute abdominal pain likely due to pancreatitis Acute pancreatitis likely Alcohol-induced Acute intractable nausea and vomiting likely due to pancreatitis lipase trending downward. 1289--> 935--> 100-->117 CT abdomen pelvis without contrast showed stranding and fluid around the pancreas Repeat of CT scan on 03/17 shows, diffusely edematous appearance to the pancreas with peripancreatic inflammatory change and phlegmonous type change near the pancreatic tail. Findings may represent changes of pancreatitis. Clinical correlation advised. No abscess or pancreatic necrosis at this time gallbladder ultrasound showed no gallstone or sludge, no pericholecystic fluid, negative ultrasound Haile sign Continue DW 5 half normal saline at 100 mL/hour morphine for pain control Zofran p.r.n. for nausea, vomiting Hepatic steatosis Transaminitis likely due to chronic heavy alcohol consumption Chronic alcohol use disorder High risk of alcohol withdrawal, [facility] protocol AST/ALT: WNL RUQ ultrasound shows hepatomegaly with findings of steatosis patient counseled on alcohol cessation for more than 15 minutes, resources to be provided to help with de-addiction excellent FCM current smoker Patient was consulted for smoking cessation for more than 13 minutes Hypokalemia --> 3.3 --> replaced Mild hyponatremia --> Monitor closely Urinary tract infection likely acute cystitis UA shows UTI picture IV ceftriaxone Urine culture Mild malnutrition --> recurrent emesis --> albumin: 2.8 History of bilateral tubal ligation History of depression/anxiety/panic attack --> Psyche consult or follow up outpatient Plan: Diet: Clear liquid diet, advances diet as can tolerate For pain, morphine 1 mg q4h prn DVT PROPHYLAXIS: Lovenox GI PROPHYLAXIS:: Protonix BOWEL REGIMEN: Clear CODE STATUS: Full Goal of care discussed for more than 25 minute Case and Plan discussed with Dr. Aiken Plan discussed with: Patient My Orders My Orders Orders - TONO CORADO RESIDENT Procedure Category Date Status Time Pt Request For Service PT 03/19/24 Logged 17:02 Clear Liq Diet DIET 03/20/24 Transmitted Breakfast Communication Order ORDERS 03/20/24 Transmitted 09:23 Dietary Evaluation Review Comments: 1) If patient remains NPO for more than 7 days, consider EN/TPN to meet at least 75% of estimated needs. 2) If GI route is preferred, consider Jevity 1.2 @ 50 mL/hr goal rate as tolerated. TF regimen will provide 1,440 kcals, 67g pro, and 968 mL free H2O. TF regimen will meet ~ 77% daily estimated energy needs and ~74% daily estimated protein needs. 3) Advance patient diet when medically feasible to low-fat diet. 4) Monitor electrolytes when resuming feeding. 5) Encourage ETOH cessation. Expected Outcomes/Goals: 1) Patient labs or appetite to improve 2) Patient to receive nutrition support within 7 days of NPO status 3) F/u in 2-3 days Date of Service: Mar 20, 2024 Billing Provider: CLAIRE AIKEN MD Common Visit Codes: [id number] INP/OBS CARE(HIGH) TONO CORADO Mar 20, 2024 15:08 CLAIRE AIKEN MD Mar 20, 2024 21:22
[2024-03-20] MEDS: POTASSIUM EFFERVESENT TAB 25 MEQ GT ONE (19:12)
[2024-03-21] VITALS (7 sets, daily range): BP systolic 105–122; BP diastolic 69–80; PULSE 91–103; RESP 18–20; TEMP 97.6–99.2; O2SAT 96–98
[2024-03-21 10:34] LABS: Basophils # (auto) 0 10 ^3/uL (0-0.2); Basophils % (auto) 0.3 % (0.0-2.0); Eosinophils # (auto) 0.1 10 ^3/uL (0-0.8); Eosinophils % (auto) 1.2 % (0.0-7.0); Hematocrit 36.4 % (36.0-46.0); Hemoglobin 12.6 g/dL (12.2-16.2); Lymphocytes % (auto) 13.9 % (10.0-50.0); Mean Corpuscular Hemoglobin 32.4 pg (28.0-32.0); Mean Corpuscular Hgb Conc. 34.7 g/dL (32.0-36.0); Mean Corpuscular Volume 93.3 fL (80.0-100.0); Monocytes # (auto) 0.8 10 ^3/uL (0-1.3); Monocytes % (auto) 11.2 % (0.0-12.0); Neutrophils # (auto) 5.2 10 ^3/uL (1.6-8.6); Neutrophils % (auto) 73.4 % (37.0-80.0); Nucleated Red Blood Cells % 0.1 %; Platelet Count (auto) 320 10^3/uL (140-450); Red Cell Distribution Width 13.5 % (11.8-14.3); White Blood Cell 7.1 10^3/uL (4.4-10.8)
[2024-03-21 10:53] LABS: Alanine Aminotransferase 27 U/L (7-40); Albumin 3.7 g/dL (3.2-4.8); Alkaline Phosphatase 85 U/L (46-116); Anion Gap 7 (5-15); Bilirubin, Total 0.4 mg/dL (0.2-1.0); Calcium 9.5 mg/dL (8.7-10.4); Carbon Dioxide 26 mmol/L (20-31); Chloride 100 mmol/L (98-107); Glucose 103 mg/dL (74-106); Potassium 3.6 mmol/L (3.5-5.1); Total Protein 6.4 g/dL (5.7-8.2)
[2024-03-21 10:55] LABS: Aspartate Aminotransferase 50 U/L (13-40); BUN/Creatinine Ratio 8.6 (10.0-20.0); Blood Urea Nitrogen < 5 mg/dL (9-23); Sodium 133 mmol/L (136-145)
--- NOTE | 2024-03-21 18:43 | DVHDSRES ---
Discharge Summary Date of Admission Resident Creating Document: TONO CORADO RESIDENT Mar 14, 2024 at 21:14 Date of Discharge: Mar 21, 2024 Admitting Diagnosis Acute pancreatitis likely Alcohol-induced Labs/Diagnostic Data: PATIENT: SCOT GARCIA ACCT: [id number] UNIT: [id number] : 1990 LOC: TELE-E-ADS ROOM / BED: [id number] [facility] AGE / SEX: 33 / F ADM STATUS: ADM IN SERVICE 1329 ORDERING PHYSICIAN: MANJU BROOKS PROCEDURE(s): ABPLIV - CT AB PEL WITH IV CON ONLY REASON: Pancreatitis, possible complication ORDER NUMBER(s): [id number], ACCESSION NUMBER(s): [id number] Exam: CT CT AB PEL WITH IV CON ONLY History: Pancreatitis, possible complication COMPARISON: None Technique: Multidetector spiral CT of the abdomen and pelvis was performed from lung bases to pubic symphysis. Intravenous contrast was administered during this examination. Portal venous imaging was obtained. Axial, coronal and sagittal multiplanar reformats were performed by the technologist on a separate workstation. Radiation Dose : 1. Abdomen/Pelvis: CTDIvol 10.4 mGy, DLP 616.68 mGy*cm. Findings: Lung Bases: Dependent atelectasis. Small bilateral pleural effusions. Liver: Hepatic steatosis and hepatomegaly. Gallbladder and Biliary Tree: Unremarkable Spleen: Splenomegaly. Pancreas: Edematous appearance to the pancreas with mild phlegmonous type change around the pancreatic tail and mild inflammatory change. Adrenal Glands: Unremarkable Kidneys: No hydronephrosis. Bladder: Unremarkable Bowel: The stomach is grossly normal in appearance. Small bowel and colon are normal in caliber and distribution. The appendix is not visualized; however, no secondary findings of acute appendicitis identified. Ascites: Small volume ascites. Lymphadenopathy: No mesenteric, retroperitoneal or periportal lymphadenopathy. Abdominal Wall and Mesentery: Unremarkable. Vasculature: The visualized abdominal aorta is normal in size and caliber. Abdominal and pelvic vessels demonstrate normal enhancement. Pelvic Organs: Unremarkable Musculoskeletal: No aggressive focal bony lesions, acute fractures or dislocation. IMPRESSION: Diffusely edematous appearance to the pancreas with peripancreatic inflammatory change and phlegmonous type change near the pancreatic tail. Findings may represent changes of pancreatitis. Clinical correlation advised. No abscess or pancreatic necrosis at this time. Hepatic steatosis. Hepatomegaly. Splenomegaly. Radiation optimization: All CT scans at this facility use at least one of these dose optimization techniques: automated exposure control mA and/or kV adjustment per patient size (includes targeted exams where dose is matched to clinical indication) or iterative reconstruction. ATED BY: BEHZAD NORWOOD MD DICTATED DATE/TIME: 03/17/24 1536 PATIENT: SCOT GARCIA ACCT: [id number] UNIT: [id number] : 1990 LOC: [facility] ROOM / BED: 0244ADS / 4 AGE / SEX: 33 / F ADM STATUS: ADM IN SERVICE 1545 ORDERING PHYSICIAN: MODESTO GONZALEZ PROCEDURE(s): KUB - KUB ABDOMEN SINGLE VIEW REASON: Abdominal pain, pancreatitis. ORDER NUMBER(s): [id number], ACCESSION NUMBER(s): [id number] Date: 03/16/2024 03:54 PM Examination: XY KUB ABDOMEN SINGLE VIEW History: Abdominal pain, pancreatitis. Comparison: None TECHNIQUE: Frontal views of the abdomen was obtained. FINDINGS: Bowel gas pattern is unremarkable. The lung bases are unremarkable. No acute osseous abnormality identified. IMPRESSION: 1. Nonobstructive bowel gas pattern. ATED BY: LA MIRANDA Jr., DO ORDERING PHYSICIAN: BLADE HAIR MD PROCEDURE(s): GBUS - GALLBLADDER REASON: r/o gsw pancreatitis ORDER NUMBER(s): [id number], ACCESSION NUMBER(s): [id number] INDICATION: r/o gsw pancreatitis TECHNIQUE: Multiple real-time sonographic images of the abdomen were obtained. COMPARISON: US GALLBLADDER on DOS: 06/01/22 FINDINGS: Echogenic hepatic parenchyma suggesting steatosis.. The liver measures 19.8 cm. No intrahepatic biliary ductal dilatation is noted. The gallbladder wall measures 0.22 cm and is unremarkable. No gallstones or sludge is seen. The common duct measures 0.66 cm and is unremarkable. Common bile duct is at the upper limits of normal No pericholecystic fluid is noted. Ultrasound Haile's sign is negative The right kidney measures 10.9 cm. No hydronephrosis. The pancreas is normal The visualized portions of the IVC and aorta are grossly unremarkable. IMPRESSION: 1. Hepatomegaly with findings of steatosis 2. Common bile duct upper limits of normal. Negative ultrasound Haile's sign ATED BY: LA MIRANDA Jr. DO DICTATED DATE/TIME: 03/14/24 1612 PATIENT: SCOT GARCIA ACCT: [id number] UNIT: [id number] : 1990 LOC: ER ROOM / BED: / AGE / SEX: 33 / F ADM STATUS: REG ER SERVICE 1151 ORDERING PHYSICIAN: BLADE HAIR MD PROCEDURE(s): ABPL - CT AB PEL WO CON-NO ORAL OR IV REASON: llq l flank pain ORDER NUMBER(s): [id number], ACCESSION NUMBER(s): [id number] Exam: CT CT AB PEL WO CON-NO ORAL OR IV History: llq l flank pain Comparison Study: CT CT AB PEL WO CON-NO ORAL OR IV on DOS: 06/14/22 Technique: Multidetector spiral CT of the abdomen and pelvis was performed from lung bases to pubic symphysis. Imaging was performed without IV contrast. Axial, coronal and sagittal multiplanar reformats were obtained from the axial data set by the technologist. Radiation dose : Abdomen/Pelvis: CTDIvol 7 mGy, DLP 390.47 mGy*cm. Findings: Evaluation of solid organs is limited due to lack of intravenous contrast use. Lung Bases: No acute or significant lung base finding. Normal heart size. No pleural or pericardial effusion. Liver: Diffuse hepatic steatosis. Gallbladder and biliary Tree: Sludge in the gallbladder. Spleen: Unremarkable Pancreas: There is stranding and fluid around the pancreas. Adrenal Glands: Unremarkable Kidneys: Kidneys are grossly normal without calculi or hydronephrosis. Bladder: Grossly unremarkable for degree of distention. Bowel: The stomach is grossly normal in appearance. Small bowel and colon are normal in caliber and distribution. The appendix is not visualized; however, no secondary findings of acute appendicitis identified. Ascites: Absent Lymphadenopathy: No mesenteric, retroperitoneal or periportal lymphadenopathy. Abdominal wall and Mesentery: Unremarkable. Vasculature: The visualized abdominal aorta is normal in size and caliber. Evaluation of abdominal and pelvic vessels is limited due to lack of intravenous contrast. Pelvic Organs: Unremarkable Musculoskeletal: No aggressive focal bony lesions, acute fractures or dislocation. IMPRESSION: 1. Stranding and fluid around the pancreas suggests acute pancreatitis. This would be better /further evaluated with CT of the abdomen with contrast. Clinical correlation and continued follow-up is recommended. 2. Diffuse hepatic steatosis. Sludge in the gallbladder. 3. Radiation optimization: All CT scans at this facility use at least one of these dose optimization techniques: Automated exposure control mA and/or kV adjustment per patient size (includes targeted exams where dose is matched to clinical indication) or iterative reconstruction. HS:Y Laboratory Results Test 03/21/24 10:06 03/20/24 15:45 03/20/24 13:11 03/19/24 18:43 White Blood Count 7.1 10^3/uL (4.4-10.8) Red Blood Count 3.90 10^6/uL (4.0-5.20) Hemoglobin 12.6 g/dL (12.2-16.2) Hematocrit 36.4 % (36.0-46.0) Mean Corpuscular Volume 93.3 fL (80.0-100.0) Mean Corpuscular Hemoglobin 32.4 pg (28.0-32.0) Mean Corpuscular Hemoglobin Concent 34.7 g/dL (32.0-36.0) Red Cell Distribution Width 13.5 % (11.8-14.3) Platelet Count 320 10^3/uL (140-450) Mean Platelet Volume 6.9 fL (6.9-10.8) Neutrophils (%) (Auto) 73.4 % (37.0-80.0) Lymphocytes (%) (Auto) 13.9 % (10.0-50.0) Monocytes (%) (Auto) 11.2 % (0.0-12.0) Eosinophils (%) (Auto) 1.2 % (0.0-7.0) Basophils (%) (Auto) 0.3 % (0.0-2.0) Neutrophils # (Auto) 5.2 10 ^3/uL (1.6-8.6) Lymphocytes # (Auto) 1.0 10 ^3/uL (0.4-5.4) Monocytes # (Auto) 0.8 10 ^3/uL (0-1.3) Eosinophils # (Auto) 0.1 10 ^3/uL (0-0.8) Basophils # (Auto) 0 10 ^3/uL (0-0.2) Nucleated Red Blood Cells 0.1 % Sodium Level 133 mmol/L (136-145) Potassium Level 3.6 mmol/L (3.5-5.1) Chloride Level 100 mmol/L (98-107) Carbon Dioxide Level 26 mmol/L (20-31) Anion Gap 7 (5-15) Blood Urea Nitrogen < 5 mg/dL (9-23) Creatinine 0.58 mg/dL (0.550-1.02) Glomerular Filtration Rate Calc 122 mL/min (>90) BUN/Creatinine Ratio 8.6 (10.0-20.0) Serum Glucose 103 mg/dL (74-106) Calcium Level 9.5 mg/dL (8.7-10.4) Total Bilirubin 0.4 mg/dL (0.2-1.0) Aspartate Amino Transferase (AST) 50 U/L (13-40) Alanine Aminotransferase (ALT) 27 U/L (7-40) Alkaline Phosphatase 85 U/L (46-116) Total Protein 6.4 g/dL (5.7-8.2) Albumin 3.7 g/dL (3.2-4.8) Stool Occult Blood Negative (Negative) Stool Occult Blood Sample #3 (Negative) Lipase 148 U/L (12-53) Magnesium Level 2.1 mg/dL (1.6-2.6) Test 03/18/24 06:54 03/15/24 06:08 03/14/24 12:04 03/14/24 11:54 Amylase Level 226 U/L (30-118) Hemoglobin A1c 4.7 % A1C (<5.7) Triglycerides Level 87 mg/dL (< 150) Cholesterol Level 153 mg/dL (< 200) LDL Cholesterol 85 mg/dL (< 100) HDL Cholesterol 56 mg/dL (40-59) Thyroid Stimulating Hormone (TSH) 2.07 uIU/mL (0.55-4.78) Plasma/Serum Blood Alcohol < 3.0 mg/dL (<10) Direct Bilirubin 0.4 mg/dL (<0.3) Urine Color Light-orange (Yellow) Urine Clarity Hazy (Clear) Urine pH 7.0 (5.0-9.0) Urine Specific [place] 1.025 (1.001-1.035) Urine Protein 1+ (Negative) Urine Ketones 1+ (Negative) Urine Blood Negative /uL (Negative) Urine Nitrite Negative (Negative) Urine Bilirubin Negative (Negative) Urine Urobilinogen 3 mg/dL (Negative) Urine Leukocyte Esterase 2+ /uL (Negative) Urine RBC None seen /hpf (0 - 4) Urine WBC 12 /hpf (0 - 5) Urine Squamous Epithelial Cells Many /hpf (<5) Urine Bacteria Few /hpf (None Seen) Urine Glucose Normal mg/dL (Normal) Urine Test Negative (Negative) Other Laboratory Tests 03/21/24 10:06 Brief Hx & Hospital Course: Hospital course This 33-year-old female with no significant past medical history came to the ED with a chief complaint of severe abdominal pain that started few hours prior to presentation. Patient reports that she woke up with sudden onset epigastric abdominal pain and later her abdomen was hurting diffusely, the pain was radiating to the back from the epigastrium, improved on sitting up and worsened on lying down. Patient reported associated nausea and multiple episodes of vomiting which were mostly consisted of yellowish colored fluid but no blood, 3- 4 episodes of watery stools no associated blood in the stool. Patient reports heavy alcohol intake daily and reported that the night previous she consumed about 3-4 tall cans of beer. Patient denied fever, chills, chest pain, shortness of breath, dysuria. Patient reports that she has been trying to stop drinking alcohol but is not able to and wants support to help her quit drinking. N/S fluiid,folic acid thiamine,ativan, daily lab work Examination General Appearance: Alert, Oriented X3, Cooperative, No acute distress HEENT: Atraumatic, PERRLA, EOMI, Mucous membrane moist/pink Respiratory: Clear to auscultation, Normal air movement Cardiovascular: Regular rate, Normal S1, Normal S2, No murmurs, no chest wall tenderness Abdominal: mild Abdominal tenderness Extremities: No clubbing, No cyanosis, No edema, Normal pulses, No tenderness/swelling Skin: No rashes, No breakdown, No significant lesion Neuro: Normal gait, Normal speech, Strength at 5/5 X4 ext, Normal tone, Sensation intact, Cranial nerves 3-12 NL, Reflexes 2+ Psych/Mental Status: Mental status NL, Mood NL Diagnoses Acute abdominal pain likely due to pancreatitis Acute pancreatitis likely Alcohol-induced Acute intractable nausea and vomiting likely due to pancreatitis Hepatic steatosis Transaminitis likely due to chronic heavy alcohol consumption Chronic alcohol use disorder current smoker Hypokalemia Urinary tract infection likely acute cystitis Mild malnutrition History of bilateral tubal ligation History of depression/anxiety/panic attack Hepatomegaly. Splenomegaly. Discharge planing Continue full liquid diet and gradually advance as can tolerate Protonix daily zofran prn folic acid 1 mg daily [place] 5 mg prn q12hr prn One month supply of Bupropion 150 mg daily one month supply of lorazepam 1 mg bid patient counselled to stop drinking and seek help Advised to call 911 and return to the ED if she does feel well. Case and discharge plan discussed with DR. Aiken Condition at Discharge: Good Final Diagnosis/Problems List Acute abdominal pain likely due to pancreatitis Acute pancreatitis likely Alcohol-induced Acute intractable nausea and vomiting likely due to pancreatitis Hepatic steatosis Transaminitis likely due to chronic heavy alcohol consumption Chronic alcohol use disorder current smoker Hypokalemia Urinary tract infection likely acute cystitis Mild malnutrition History of bilateral tubal ligation History of depression/anxiety/panic attack Hepatomegaly Splenomegaly Discharge Disposition: Home Discharge Instruct/Medications Diet: See Comment Diet comment: full liquid diet and gradually advance the diet Activity: See Comment Activity comment: light exercise Follow Up/Referral: 7 days Medications: Thiamine folic acid protonix Discharge Statement: "Patient was advised to return to the ER or call 911 if any headaches, dizziness, shortness of breath, chest pain, abdominal pain, bleeding, fevers, or worsening of medical condition. Patient was counseled about treatment plan, medications, possible side effects, patientverbalized understanding. All questions were answered to the best of my ability. This discharge took greater then 30 minutes in planning, reviewing documentation, counseling the patient, and discussing with other team members." ASSESSMENT ASSESSMENT Assessment Acute abdominal pain likely due to pancreatitis Acute pancreatitis likely Alcohol-induced Acute intractable nausea and vomiting likely due to pancreatitis Hepatic steatosis Transaminitis likely due to chronic heavy alcohol consumption Chronic alcohol use disorder current smoker Patient was consulted for smoking cessation for more than 13 minutes Hypokalemia Urinary tract infection likely acute cystitis Urine culture Mild malnutrition History of bilateral tubal ligation History of depression/anxiety/panic attack TONO CORADO RESIDENT Mar 21, 2024 18:43
[2024-03-21] MEDS ORDERED: HYDR-4902 PO (18:46)
[2024-03-21] MEDS ORDERED: BUPRTAB PO (18:49)
[2024-03-21] MEDS ORDERED: LORA-655 PO (18:50)
[2024-03-21] MEDS ORDERED: LORA2TAB89 PO (18:51)
== END 2024-03-21 20:06 | disposition home or self-care (01) | DRG 282 ==
LOC: ER 11:45 → OVERFLOW 21:14 → EAST 21:19 → TELE-E-ADS 03-16 16:15 → EAST 03-17 20:22
PROVIDERS: ADMIT Internal Medicine; ATTEND Internal Medicine
DX: K85.20 Alcohol induced acute pancreatitis without necrosis or infection (principal); E44.1 Mild protein-calorie malnutrition; K76.0 Fatty (change of) liver, not elsewhere classified; K56.7 Ileus, unspecified; R16.2 Hepatomegaly with splenomegaly, not elsewhere classified; N30.00 Acute cystitis without hematuria; R74.01 Elevation of levels of liver transaminase levels; F41.9 Anxiety disorder, unspecified; E87.6 Hypokalemia; E87.1 Hypo-osmolality and hyponatremia; F32.A Depression, unspecified; F10.10 Alcohol abuse, uncomplicated; Y90.9 Presence of alcohol in blood, level not specified; F17.210 Nicotine dependence, cigarettes, uncomplicated; Z79.891 Long term (current) use of opiate analgesic; Z79.899 Other long term (current) drug therapy; Z68.24 Body mass index [BMI] 24.0-24.9, adult; Z98.51 Tubal ligation status
CPT/HCPCS: 36415; 74018; 74176; 74177; 76705; 80048; 80053; 80061; 80076; 80320; 81001; 81025; 82150; 82270; 83036; 83690; 83735; 84132; 84443; 85025; 87086; 97116; 97162; 97530; 99291; G0378; J1885; J2003; J2405; J2470; J7060

== ENCOUNTER → 2024-04-16 | Outpatient (CLI) | payer MEDICAID ==
[~2024-04-16] MED LIST changes: +BUPRTAB PO; +HYDR-4902 PO; +LORA2TAB89 PO; -NITR-87 PO; -PERCOT PO
[2024-04-16 11:47] LABS: Alanine Aminotransferase 25 U/L (7-40); Anion Gap 7 (5-15); Calcium 10.4 mg/dL (8.7-10.4); Carbon Dioxide 25 mmol/L (20-31); Potassium 4.5 mmol/L (3.5-5.1); Sodium 139 mmol/L (136-145)
[2024-04-16 11:48] LABS: Glucose 98 mg/dL (74-106)
[2024-04-16 11:50] LABS: Albumin 4.4 g/dL (3.2-4.8); Aspartate Aminotransferase 27 U/L (13-40); Bilirubin, Total 0.4 mg/dL (0.2-1.0); Total Protein 6.7 g/dL (5.7-8.2)
[2024-04-16 12:00] LABS: BUN/Creatinine Ratio 7.9 (10.0-20.0); Blood Urea Nitrogen < 5 mg/dL (9-23); Chloride 107 mmol/L (98-107)
[2024-04-16 12:30] LABS: Alkaline Phosphatase 95 U/L (46-116)
== END | disposition home or self-care (01) ==
LOC: LAB 09:39
PROVIDERS: ATTEND Internal Medicine
DX: E87.1 Hypo-osmolality and hyponatremia (principal); K76.0 Fatty (change of) liver, not elsewhere classified; K85.90 Acute pancreatitis without necrosis or infection, unspecified
CPT/HCPCS: 36415; 80053

== ENCOUNTER 2024-06-03 15:57 | Emergency (ER) | payer MEDICAID | END 2024-06-03 16:35 | disposition left against medical advice (07) | LOC: ER 15:57 | DX: F10.239 Alcohol dependence with withdrawal, unspecified (principal); Z53.21 Procedure and treatment not carried out due to patient leaving prior to being seen by health care provider ==

== ENCOUNTER 2024-07-01 08:36 | Emergency (ER) | payer MEDICAID ==
[~2024-07-01] VITALS: Ht 160 cm; Wt 66.9 kg
--- NOTE | 2024-07-01 09:01 | ED.PDOC ---
History of Present Illness HPI Comments 33-year-old female presents with a chief complaint of abdominal pain. Patient states that her pain is localized to her epigastric region, nonradiating. Patient mentions that she has had pancreatitis before. Patient endorses heavy alcohol use. Time Seen by MD: 08:45 Primary Care Provider: NONE Reviewed Notes: Medications, Allergies Allergies: Coded Allergies: NO KNOWN ALLERGIES (Unverified , 06/14/22) Home Meds Active Scripts Lorazepam (Ativan) 2 Mg Tab, 0.5 TAB PO BIDPRN PRN, #20 TAB Prov:CLAIRE SHEARER MD 03/21/24 Bupropion HCl (Wellbutrin Xl) 150 Mg Tab, 150 MG PO DAILY, #30 TAB Prov:CLAIRE SHEARER MD 03/21/24 Hydrocodone-Acetaminophen (Hydrocodone Bitartrate/AC 5-325 mg) 1 Tab Tab, 1 TAB PO Q8HPRN PRN, #20 TAB Prov:CLAIRE SHEARER MD 03/21/24 Hydroxyzine Pamoate (Vistaril) 50 Mg Cap, 1 CAP PO BID, #20 CAP 2 Refills Prov:STEVE BHAGAT 06/01/22 Ondansetron (Zofran) 4 Mg Tab, 1 TAB PO BID, #14 TAB Prov:STEVE BHAGAT 06/01/22 Information Source: Patient Mode of Arrival: Ambulatory Severity: Moderate Timing: Days Duration: Since onset Prehospital treatment: None Past Medical History PAST MEDICAL HISTORY: Anxiety Surgical History: BTL, Tubal Ligation 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 Hx Family History Family History: Reviewed,noncontributory to illness Social History Smoker: Cigarettes Alcohol: Occasionally Drugs: Denies Drug Use Lives In: Home Constitutional: denies: chills, diaphoresis, fatigue, fever, malaise, sweats, weakness, others EENTM: denies: blurred vision, double vision, ear bleeding, ear discharge, ear drainage, ear pain, ear ringing, eye pain, eye redness, hearing loss, mouth pain, mouth swelling, nasal discharge, nose bleeding, nose congestion, nose pain, photophobia, tearing, throat pain, throat swelling, voice changes, others Respiratory: denies: cough, hemoptysis, orthopnea, SOB at rest, shortness of breath, SOB with excertion, stridor, wheezing, others Cardiovascular: denies: chest pain, dizzy spells, diaphoresis, Dyspnea on exertion, edema, irregular heart beat, left arm pain, lightheadedness, palpitations, PND, syncope, others Gastrointestinal: reports: abdominal pain; denies: abdomen distended, blood streaked bowels, constipated, diarrhea, dysphagia, difficulty swallowing, hematemesis, melena, nausea, poor appetite, poor fluid intake, rectal bleeding, rectal pain, vomiting, others Genitourinary: denies: abnormal vagina bleeding, burning, dyspareunia, dysuria, flank pain, frequency, hematuria, incontinence, pain, , vagina discharge, urgency, others Neurological: denies: dizziness, fainting, headache, left sided numbness, left sided weakness, numbness, paresthesia, pre-existing deficit, right sided numbness, right sided weakness, seizure, speech problems, tingling, tremors, weakness, others Musculoskeletal: denies: back pain, gout, joint pain, joint swelling, muscle pain, muscle stiffness, neck pain, others Integumetry: denies: bruises, change in color, change in hair/nails, dryness, laceration, lesions, lumps, rash, wounds, others Allergic/Immunocompromised: denies: Difficulty Healing, Frequent Infections, Hives, Itching, others Hematologic/Lymphatic: denies: anemia, blood clots, easy bleeding, easy bruising, swollen glands, others Endocrine: denies: excessive hunger, excessive sweating, excessive thirst, excessive urination, flushing, intolerance to cold, intolerance to heat, unexplained weight gain, unexplained weight loss, others Psychiatric: denies: anxiety, bipolar disorder, depression, hopeless, panic disorder, schizophrenia, sleepless, suicidal, others All Other Systems: Reviewed and Negative Physical Exam General Appearance: No Apparent Distress, Normal HEENT: Normal ENT Inspection, Pharynx Normal, TMs Normal Neck: Full Range of Motion, Non-Tender, Normal, Normal Inspection Respiratory: Chest Non-Tender, Lungs Clear, No Accessory Muscle Use, No Respiratory Distress, Normal Breath Sounds Cardiovascular: No Edema, No JVD, No Murmur, No Gallop, Normal Peripheral Pulses, Regular Rate/Rhythm Breast Exam: Deferred Gastrointestinal: No Organomegaly, Non Tender, No Pulsatile Mass, Normal Bowel Sounds, Soft Genitalia: Deferred Pelvic: Deferred Rectal: Deferred Extremities: No calf tenderness, Normal capillary refill, Normal inspection, Normal range of motion, Non-tender, No pedal edema Musculoskeletal : Apperance: Normal Neurologic: Alert, 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 Was a procedure done?: No Differential Dx Considerations may include: seizure disorder, alcohol withdraw seizure, alcohol induced seizure, pseudoseizure, electrolyte disorders, intracranial mass/bleed, hypoglycemia X-Ray, Labs, Meds, VS Vital Signs Date Time Temp Pulse Resp B/P (MAP) Pulse Ox O2 Delivery O2 Flow Rate FiO2 07/01/24 09:14 98.1 80 17 116/80 (92) 98 98.1 07/01/24 09:05 Room Air* 0 21 07/01/24 08:48 98.2 99 16 100/69 (79) 99 98.2 Lab Test 07/01/24 08:57 07/01/24 08:45 Range/Units White Blood Count 6.8 4.4-10.8 10^3/uL Red Blood Count 5.12 4.0-5.20 10^6/uL Hemoglobin 15.4 12.2-16.2 g/dL Hematocrit 44.8 36.0-46.0 % Mean Corpuscular Volume 87.5 80.0-100.0 fL Mean Corpuscular Hemoglobin 30.1 28.0-32.0 pg Mean Corpuscular Hemoglobin Concent 34.4 32.0-36.0 g/dL Red Cell Distribution Width 13.6 11.8-14.3 % Platelet Count 332 140-450 10^3/uL Mean Platelet Volume 7.1 6.9-10.8 fL Neutrophils (%) (Auto) 75.0 37.0-80.0 % Lymphocytes (%) (Auto) 18.3 10.0-50.0 % Monocytes (%) (Auto) 5.8 0.0-12.0 % Eosinophils (%) (Auto) 0.6 0.0-7.0 % Basophils (%) (Auto) 0.3 0.0-2.0 % Neutrophils # (Auto) 5.1 1.6-8.6 10 ^3/uL Lymphocytes # (Auto) 1.2 0.4-5.4 10 ^3/uL Monocytes # (Auto) 0.4 0-1.3 10 ^3/uL Eosinophils # (Auto) 0 0-0.8 10 ^3/uL Basophils # (Auto) 0 0-0.2 10 ^3/uL Nucleated Red Blood Cells 0.1 % Sodium Level 138 136-145 mmol/L Potassium Level 4.9 3.5-5.1 mmol/L Chloride Level 105 98-107 mmol/L Carbon Dioxide Level 24 20-31 mmol/L Anion Gap 9 5-15 Blood Urea Nitrogen 8 L 9-23 mg/dL Creatinine 0.73 0.550-1.02 mg/dL Glomerular Filtration Rate Calc 111 >90 mL/min BUN/Creatinine Ratio 11.0 10.0-20.0 Serum Glucose 95 74-106 mg/dL Calcium Level 10.4 8.7-10.4 mg/dL Lipase Pending Plasma/Serum Blood Alcohol < 3.0 <10 mg/dL Urine Test Negative Negative Urine Opiates Screen Neg NEGATIVE Urine Fentanyl Screen Neg NEGATIVE Urine Barbiturates Screen Neg NEGATIVE Urine Phencyclidine Screen Neg NEGATIVE Urine Amphetamines Screen Neg NEGATIVE Urine Benzodiazepines Screen Neg NEGATIVE Urine Cocaine Screen Neg NEGATIVE Urine Cannabinoids Screen Neg NEGATIVE Time of 1ST Reevaluation: 09:15 Reevaluation 1ST: Unchanged Patient Education/Counseling: Diagnosis, Treatment, Prognosis, Need For Follow Up Family Education/Counseling: No Family Present Additional Information Previous visits: 06/03/2024, 04/03/2024 The following tests were ordered, and results were reviewed by me: HEAD CT, URINE , UDS, ETOH LEVEL, BMP, CBC, LIPASE I reviewed and agreed with the following test results read by other providers: RADIOLOGIST I discussed treatment and results with medical personnel and: PATIENT Comprehensive systems review obtained and negative except for what is stated in the HPI. pt will follow up with her neurologist. she is symptom free at this time. workup is unremarkable Departure 1 Departure Time of Disposition: 10:17 Impression: Primary Impression: Seizure Disposition: 01 HOME / SELF CARE / HOMELESS Condition: Good Discharged With: Self Critical Care Note Critical Care Time?: Yes (45 min-critical care time only) Critical care comment: Due to concerns for patients condition deteriorating, the care required my highest level of attention and readiness to intervene. I assessed the patient, reviewed the medical records, ordered the appropriate tests and treatments, then reassessed for results and responsiveness. I communicated with medical personnel and consultants and formulated a plan of care. Total critical care time excludes any procedures Stability Stability form required: No Heart Score Heart Score: Heart Score Response (Comments) Value History N/A 0 EKG N/A 0 Age N/A 0 Risk Factors N/A 0 Troponin N/A 0 Total 0 I personally scribed for BLADE HAIR MD ([email or web address]) on 07/01/24 at 09:01. Electronically submitted by Sage Funez ([email or web address]). BLADE HAIR MD Jul 01, 2024 09:01
[2024-07-01 09:21] LABS: Basophils # (auto) 0 10 ^3/uL (0-0.2); Basophils % (auto) 0.3 % (0.0-2.0); Eosinophils # (auto) 0 10 ^3/uL (0-0.8); Eosinophils % (auto) 0.6 % (0.0-7.0); Hematocrit 44.8 % (36.0-46.0); Hemoglobin 15.4 g/dL (12.2-16.2); Lymphocytes # (auto) 1.2 10 ^3/uL (0.4-5.4); Lymphocytes % (auto) 18.3 % (10.0-50.0); Mean Corpuscular Hemoglobin 30.1 pg (28.0-32.0); Mean Corpuscular Hgb Conc. 34.4 g/dL (32.0-36.0); Mean Corpuscular Volume 87.5 fL (80.0-100.0); Monocytes # (auto) 0.4 10 ^3/uL (0-1.3); Monocytes % (auto) 5.8 % (0.0-12.0); Neutrophils # (auto) 5.1 10 ^3/uL (1.6-8.6); Nucleated Red Blood Cells % 0.1 %; Platelet Count (auto) 332 10^3/uL (140-450); Red Blood Cells 5.12 10^6/uL (4.0-5.20); Red Cell Distribution Width 13.6 % (11.8-14.3); White Blood Cell 6.8 10^3/uL (4.4-10.8)
[2024-07-01 09:32] LABS: Chloride 105 mmol/L (98-107); Potassium 4.9 mmol/L (3.5-5.1); Sodium 138 mmol/L (136-145)
[2024-07-01 09:33] LABS: Anion Gap 9 (5-15); Carbon Dioxide 24 mmol/L (20-31)
[2024-07-01 09:38] LABS: Glucose 95 mg/dL (74-106)
[2024-07-01 09:40] LABS: Benzodiazephine Screen, Urine Neg (NEGATIVE)
[2024-07-01 09:41] LABS: Blood Urea Nitrogen 8 mg/dL (9-23); Calcium 10.4 mg/dL (8.7-10.4)
[2024-07-01 09:42] LABS: Amphetamine Screen, Urine Neg (NEGATIVE); Barbiturate Scree,Urine Neg (NEGATIVE); Cannabinoid Screen, Urine Neg (NEGATIVE); Cocaine Screen, Urine Neg (NEGATIVE); Opiate Scree,Urine Neg (NEGATIVE); Phencyclidine Screen, Urine Neg (NEGATIVE)
[2024-07-01 10:15] LABS: Blood Alcohol < 3.0 mg/dL (<10)
--- NOTE | 2024-07-01 10:27 | DVH ---
EXAM: CT HEAD WITHOUT CONTRAST INDICATION: Seizures TECHNIQUE: CT of the head without intravenous contrast. Coronal and sagittal reformatted images are s ubmitted. Radiation Dose : 1. Head: CT Dose: CTDI volume is 53.0 mGy. Dose-length product is 938.66 mGy*cm The dose indicators for CT are the volume Computed Tomography (CT) Dose Index (CTDIvol) and the Dose Length Product (DLP), and are measured in units of mGy and mGy-cm, respectively. These indicators are not patient dose, but values generated from the CT scanner acquisition factors. The report includes radiation exposure data for exposures received during this examination. All CT scans at this medical facility are performed using dose modulation techniques as appropriate to a performed exam including the following: Automated exposure control was utilized; adjustment of the MA and/or KV according to patient size; and use of iterative reconstruction technique. COMPARISON: None FINDINGS: There is no evidence of acute intracranial hemorrhage, extra-axial collection, mass effect, midline s hift, herniation or hydrocephalus. The ventricles, sulci and cisterns are age appropriate. The anderson-white differentiation is intact. The visualized paranasal sinuses and mastoid air cells are clear. No depressed calvarial fracture. The surrounding soft tissues are unremarkable. IMPRESSION: 1. No evidence of acute intracranial abnormality.
[2024-07-01 10:29] LABS: Lipase 33 U/L (12-53)
[2024-07-01 11:27] VITALS: BP 102/71; PULSE 99; RESP 17; TEMP 98.2; O2SAT 100
== END 2024-07-01 11:34 | disposition home or self-care (01) ==
LOC: ER 08:36
DX: R56.9 Unspecified convulsions (principal); F17.210 Nicotine dependence, cigarettes, uncomplicated; F41.9 Anxiety disorder, unspecified; Z79.899 Other long term (current) drug therapy; Z98.51 Tubal ligation status; Z87.19 Personal history of other diseases of the digestive system
CPT/HCPCS: 36415; 70450; 80048; 80307; 80320; 81025; 83690; 85025; 99291

== ENCOUNTER 2024-08-18 00:35 | Emergency (ER) | payer MEDICAID ==
[~2024-08-18] VITALS: Ht 167.6 cm; Wt 80.0 kg
[2024-08-18 00:35] VITALS: BP 93/62; PULSE 90; RESP 20; TEMP 98.3; O2SAT 98
--- NOTE | 2024-08-18 01:13 | ED.PDOC ---
History of Present Illness HPI Comments 33 y/o F is BIBA for mental health. Per EMS report, patient arrived to fire station with multiple, self-induced laceration wounds and endorsement self-harm ideations. Patient has a history of anxiety, depression, panic attacks, alcohol abuse, seizures, pancreatitis, hepatic steatosis, hepatomegaly, splenomegaly, transaminitis, and hypokalemia. En route, she is reported to have had 3x seizure-like activities without postictal state. At time of assessment, patient is awake and reports on self-harm ideations occurring, sporadically, and insist on it having some relation towards the multiple medications she has to keep track of taking for her multiple medical conditions. No further associated symptoms reported. Time Seen by MD: 00:45 Primary Care Provider: NONE Reviewed Notes: Nurses Notes, Shredder Tender Notes, Medications, Allergies Allergies: Coded Allergies: NO KNOWN ALLERGIES (Unverified , 06/14/22) Home Meds Active Scripts Lorazepam (Ativan) 2 Mg Tab, 0.5 TAB PO BIDPRN PRN, #20 TAB Prov:CLAIRE SHEARER MD 03/21/24 Bupropion HCl (Wellbutrin Xl) 150 Mg Tab, 150 MG PO DAILY, #30 TAB Prov:CLAIRE SHEARER MD 03/21/24 Hydrocodone-Acetaminophen (Hydrocodone Bitartrate/AC 5-325 mg) 1 Tab Tab, 1 TAB PO Q8HPRN PRN, #20 TAB Prov:CLAIRE SHEARER MD 03/21/24 Hydroxyzine Pamoate (Vistaril) 50 Mg Cap, 1 CAP PO BID, #20 CAP 2 Refills Prov:STEVE BHAGAT 06/01/22 Ondansetron (Zofran) 4 Mg Tab, 1 TAB PO BID, #14 TAB Prov:STEVE BHAGAT 06/01/22 Information Source: Patient, Emergency Med Personnel Mode of Arrival: EMS Severity: Moderate Timing: Hours Duration: Since onset Prehospital treatment: 12 Lead EKG, [facility] Past Medical History PAST MEDICAL HISTORY: Anxiety, Depression, Seizures Past Medical History (Other): pancreatitis, alcohol-induced hepatic steatosis, hepatomegaly splenomegaly transaminitis hypokalemia panic attacks Surgical History: BTL, Tubal Ligation 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 DESIGN INTERN Hx Family History Family History: Reviewed,noncontributory to illness Social History Smoker: Cigarettes Alcohol: Heavy Drugs: Denies Drug Use Lives In: Home Constitutional: denies: chills, diaphoresis, fatigue, fever, malaise, sweats, weakness, others EENTM: denies: blurred vision, double vision, ear bleeding, ear discharge, ear drainage, ear pain, ear ringing, eye pain, eye redness, hearing loss, mouth pain, mouth swelling, nasal discharge, nose bleeding, nose congestion, nose pain, photophobia, tearing, throat pain, throat swelling, voice changes, others Respiratory: denies: cough, hemoptysis, orthopnea, SOB at rest, shortness of breath, SOB with excertion, stridor, wheezing, others Cardiovascular: denies: chest pain, dizzy spells, diaphoresis, Dyspnea on exertion, edema, irregular heart beat, left arm pain, lightheadedness, palpitations, PND, syncope, others Gastrointestinal: denies: abdomen distended, abdominal pain, blood streaked bowels, constipated, diarrhea, dysphagia, difficulty swallowing, hematemesis, melena, nausea, poor appetite, poor fluid intake, rectal bleeding, rectal pain, vomiting, others Genitourinary: denies: abnormal vagina bleeding, burning, dyspareunia, dysuria, flank pain, frequency, hematuria, incontinence, pain, , vagina discharge, urgency, others Neurological: denies: dizziness, fainting, headache, left sided numbness, left sided weakness, numbness, paresthesia, pre-existing deficit, right sided numbness, right sided weakness, seizure, speech problems, tingling, tremors, weakness, others Musculoskeletal: denies: back pain, gout, joint pain, joint swelling, muscle pain, muscle stiffness, neck pain, others Integumetry: reports: wounds (Shallow self-inflicted wounds to left forearm.); denies: bruises, change in color, change in hair/nails, dryness, laceration, lesions, lumps, rash, others Allergic/Immunocompromised: denies: Difficulty Healing, Frequent Infections, Hives, Itching, others Hematologic/Lymphatic: denies: anemia, blood clots, easy bleeding, easy bruising, swollen glands, others Endocrine: denies: excessive hunger, excessive sweating, excessive thirst, excessive urination, flushing, intolerance to cold, intolerance to heat, unexplained weight gain, unexplained weight loss, others Psychiatric: reports: depression, suicidal; denies: anxiety, bipolar disorder, hopeless, panic disorder, schizophrenia, sleepless, others Unable to Obtain due to: Other (Intoxicated) All Other Systems: Reviewed and Negative (see HPI) Physical Exam General Appearance: Moderate Distress (Patient appears intoxicated, belligerent and states suicidal ideology), Normal HEENT: Normal ENT Inspection, Pharynx Normal, TMs Normal Neck: Full Range of Motion, Non-Tender, Normal, Normal Inspection Respiratory: Chest Non-Tender, Lungs Clear, No Accessory Muscle Use, No Respi ratory Distress, Normal Breath Sounds Cardiovascular: No Edema, No JVD, No Murmur, No Gallop, Normal Peripheral Pulses, Regular Rate/Rhythm Breast Exam: Deferred Gastrointestinal: No Pulsatile Mass, Normal Bowel Sounds, Soft Genitalia: Deferred Pelvic: Deferred Rectal: Deferred Extremities: No calf tenderness, Normal capillary refill, No pedal edema Neurologic: Alert, Other (Patient is a intoxicated and slightly belligerent) Cerebellar Function: Normal Reflexes: Normal Skin: Other (Multiple scratches noted to left forearm. No active bleed.) Lymphatic: No Adenopathy Was a procedure done? Was a procedure done?: No Differential Dx Considerations may include: depression, suicidal, hopelessness, medication noncompliance, seizure disorder, pseudoseizures, laceration, anemia, among others X-Ray, Labs, Meds, VS Vital Signs Date Time Temp Pulse Resp B/P (MAP) Pulse Ox O2 Delivery O2 Flow Rate FiO2 08/18/24 00:35 98.3 90 20 93/62 (72) 98 98.3 Lab Test 08/18/24 01:12 Range/Units White Blood Count 7.0 4.4-10.8 10^3/uL Red Blood Count 4.39 4.0-5.20 10^6/uL Hemoglobin 13.2 12.2-16.2 g/dL Hematocrit 37.1 36.0-46.0 % Mean Corpuscular Volume 84.4 80.0-100.0 fL Mean Corpuscular Hemoglobin 30.0 28.0-32.0 pg Mean Corpuscular Hemoglobin Concent 35.5 32.0-36.0 g/dL Red Cell Distribution Width 14.0 11.8-14.3 % Platelet Count 282 140-450 10^3/uL Mean Platelet Volume 6.9 6.9-10.8 fL Neutrophils (%) (Auto) 62.8 37.0-80.0 % Lymphocytes (%) (Auto) 32.4 10.0-50.0 % Monocytes (%) (Auto) 3.9 0.0-12.0 % Eosinophils (%) (Auto) 0.4 0.0-7.0 % Basophils (%) (Auto) 0.5 0.0-2.0 % Neutrophils # (Auto) 4.4 1.6-8.6 10 ^3/uL Lymphocytes # (Auto) 2.3 0.4-5.4 10 ^3/uL Monocytes # (Auto) 0.3 0-1.3 10 ^3/uL Eosinophils # (Auto) 0 0-0.8 10 ^3/uL Basophils # (Auto) 0 0-0.2 10 ^3/uL Nucleated Red Blood Cells 0.1 % Sodium Level 147 H 136-145 mmol/L Potassium Level 3.9 3.5-5.1 mmol/L Chloride Level 115 H 98-107 mmol/L Carbon Dioxide Level 20 20-31 mmol/L Anion Gap 12 5-15 Blood Urea Nitrogen < 5 L 9-23 mg/dL Creatinine 0.63 0.550-1.02 mg/dL Glomerular Filtration Rate Calc 119 >90 mL/min BUN/Creatinine Ratio 7.9 L 10.0-20.0 Serum Glucose 100 74-106 mg/dL Calcium Level 9.0 8.7-10.4 mg/dL Plasma/Serum Blood Alcohol 258.4 H <10 mg/dL X-Ray, Labs, Meds, VS Comment Studies were pending at time of this note. Once studies are returned, patient will be cleared for tele psych consult and possible placement. Patient care is being transferred to Dr. Farrell. Time of 1ST Reevaluation: 01:48 Reevaluation 1ST: Unchanged Consultation: PCP, Psychiatry Patient Education/Counseling: Diagnosis, Treatment, Need For Follow Up Family Education/Counseling: Diagnosis, Treatment, No Family Present Departure 1 Departure Time of Disposition: 01:48 Impression: Primary Impression: Suicidal ideation Additional Impression: Alcohol intoxication Disposition: 30 STILL A PATIENT Condition: Poor Discharged With: Self Critical Care Note Critical Care Time?: No Stability Stability form required: No Heart Score Heart Score: Heart Score Response (Comments) Value History N/A 0 EKG N/A 0 Age N/A 0 Risk Factors N/A 0 Troponin N/A 0 Total 0 I personally scribed for QUOC GONZALEZ PAC ([email or web address]) on 08/18/24 at 01:13. Electronically submitted by Boy Martinez ([email or web address]). QUOC GONZALEZ PAC Aug 18, 2024 01:13
[2024-08-18 01:22] LABS: Basophils # (auto) 0 10 ^3/uL (0-0.2); Basophils % (auto) 0.5 % (0.0-2.0); Eosinophils # (auto) 0 10 ^3/uL (0-0.8); Eosinophils % (auto) 0.4 % (0.0-7.0); Hematocrit 37.1 % (36.0-46.0); Hemoglobin 13.2 g/dL (12.2-16.2); Lymphocytes # (auto) 2.3 10 ^3/uL (0.4-5.4); Lymphocytes % (auto) 32.4 % (10.0-50.0); Mean Corpuscular Hgb Conc. 35.5 g/dL (32.0-36.0); Mean Corpuscular Volume 84.4 fL (80.0-100.0); Monocytes # (auto) 0.3 10 ^3/uL (0-1.3); Monocytes % (auto) 3.9 % (0.0-12.0); Neutrophils # (auto) 4.4 10 ^3/uL (1.6-8.6); Neutrophils % (auto) 62.8 % (37.0-80.0); Nucleated Red Blood Cells % 0.1 %; Platelet Count (auto) 282 10^3/uL (140-450); Red Blood Cells 4.39 10^6/uL (4.0-5.20)
[2024-08-18 01:34] LABS: Potassium 3.9 mmol/L (3.5-5.1)
[2024-08-18 01:35] LABS: Anion Gap 12 (5-15); Carbon Dioxide 20 mmol/L (20-31)
[2024-08-18 01:40] LABS: Glucose 100 mg/dL (74-106)
[2024-08-18 01:41] LABS: BUN/Creatinine Ratio 7.9 (10.0-20.0); Blood Alcohol 258.4 mg/dL (<10); Blood Urea Nitrogen < 5 mg/dL (9-23); Chloride 115 mmol/L (98-107); Sodium 147 mmol/L (136-145)
== END 2024-08-18 03:05 | disposition left against medical advice (07) ==
LOC: ER 00:35 → EDBD 00:35 → ER 03:05
DX: R45.851 Suicidal ideations (principal); F10.129 Alcohol abuse with intoxication, unspecified; F17.210 Nicotine dependence, cigarettes, uncomplicated; F41.9 Anxiety disorder, unspecified; F32.A Depression, unspecified; Z79.899 Other long term (current) drug therapy; Z87.19 Personal history of other diseases of the digestive system; Z98.51 Tubal ligation status; Z98.890 Other specified postprocedural states; Y90.9 Presence of alcohol in blood, level not specified
CPT/HCPCS: 36415; 80048; 80320; 85025

== ENCOUNTER 2024-10-21 10:22 | Inpatient (IN) | payer MEDICAID ==
[~2024-10-21] VITALS: Ht 167.6 cm; Wt 79.5 kg
--- NOTE | 2024-10-21 11:00 | ED.PDOC ---
GI ASSESSMENT HPI Comments 34 year old female with a history of alcohol-induced pancreatitis presents to the ED with a chief complaint of abdominal pain/nausea/vomiting onset this morning. She has experienced pain when she had a pancreatitis flare up, states pain is identical. Last ETOH drink was last night. Last episode patient was admitted for 10 days for treatment. PMHx anxiety, depression,seizures, pancreatitis. Denies headache, dizziness, hematemesis, dysuria, hematuria, chest pain, shortness of breath, fever, chills. No other symptoms or modifying factors present at this time. Chief Complaint: Abdominal Pain Time Seen by MD: 10:50 Primary Care Provider: NONE Reviewed Notes: Medications, Allergies Allergies: Coded Allergies: NO KNOWN ALLERGIES (Unverified , 06/14/22) Home Meds Active Scripts Lorazepam (Ativan) 2 Mg Tab, 0.5 TAB PO BIDPRN PRN, #20 TAB Prov:CLAIRE SHEARER MD 03/21/24 Bupropion HCl (Wellbutrin Xl) 150 Mg Tab, 150 MG PO DAILY, #30 TAB Prov:CLAIRE SHEARER MD 03/21/24 Hydrocodone-Acetaminophen (Hydrocodone Bitartrate/AC 5-325 mg) 1 Tab Tab, 1 TAB PO Q8HPRN PRN, #20 TAB Prov:CLAIRE SHEARER MD 03/21/24 Hydroxyzine Pamoate (Vistaril) 50 Mg Cap, 1 CAP PO BID, #20 CAP 2 Refills Prov:STEVE BHAGAT 06/01/22 Ondansetron (Zofran) 4 Mg Tab, 1 TAB PO BID, #14 TAB Prov:STEVE BHAGAT 06/01/22 Information Source: Patient, Spouse Mode of Arrival: Ambulatory Timing: Hours Duration: Since onset Prehospital treatment: None Quality: Sharp Severity: Moderate Recent: Ingestion of ETOH Recent Hx of: None Pain Location: Diffuse Modifying Factors: Nothing Associated sign and symptoms: Nausea, Vomiting, Abdominal Pain Past Medical History PAST MEDICAL HISTORY: Anxiety, Depression, Seizures Past Medical History (Other): pancreatitis Surgical History: BTL, Tubal Ligation COUNTER STACKER History: Denies all COUNTER STACKER Hx Family History Family History: Reviewed,noncontributory to illness Social History Smoker: Cigarettes Alcohol: Heavy Drugs: Denies Drug Use Lives In: Home Constitutional: denies: chills, diaphoresis, fatigue, fever, malaise, sweats, weakness, others EENTM: denies: blurred vision, double vision, ear bleeding, ear discharge, ear drainage, ear pain, ear ringing, eye pain, eye redness, hearing loss, mouth pain, mouth swelling, nasal discharge, nose bleeding, nose congestion, nose pain, photophobia, tearing, throat pain, throat swelling, voice changes, others Respiratory: denies: cough, hemoptysis, orthopnea, SOB at rest, shortness of breath, SOB with excertion, stridor, wheezing, others Cardiovascular: denies: chest pain, dizzy spells, diaphoresis, Dyspnea on exertion, edema, irregular heart beat, left arm pain, lightheadedness, palpitations, PND, syncope, others Gastrointestinal: reports: abdominal pain, nausea, vomiting; denies: abdomen distended, blood streaked bowels, constipated, diarrhea, dysphagia, difficulty swallowing, hematemesis, melena, poor appetite, poor fluid intake, rectal bleeding, rectal pain, others Genitourinary: denies: abnormal vagina bleeding, burning, dyspareunia, dysuria, flank pain, frequency, hematuria, incontinence, pain, , vagina discharge, urgency, others Neurological: denies: dizziness, fainting, headache, left sided numbness, left sided weakness, numbness, paresthesia, pre-existing deficit, right sided numbness, right sided weakness, seizure, speech problems, tingling, tremors, weakness, others Musculoskeletal: denies: back pain, gout, joint pain, joint swelling, muscle pain, muscle stiffness, neck pain, others Integumetry: denies: bruises, change in color, change in hair/nails, dryness, laceration, lesions, lumps, rash, wounds, others Allergic/Immunocompromised: denies: Difficulty Healing, Frequent Infections, H akua, Itching, others Hematologic/Lymphatic: denies: anemia, blood clots, easy bleeding, easy bruising, swollen glands, others Endocrine: denies: excessive hunger, excessive sweating, excessive thirst, excessive urination, flushing, intolerance to cold, intolerance to heat, unexplained weight gain, unexplained weight loss, others Psychiatric: denies: anxiety, bipolar disorder, depression, hopeless, panic disorder, schizophrenia, sleepless, suicidal, others All Other Systems: Reviewed and Negative Physical Exam General Appearance: Mild Distress, Normal HEENT: Normal ENT Inspection, Pharynx Normal, TMs Normal Neck: Full Range of Motion, Non-Tender, Normal, Normal Inspection Respiratory: Chest Non-Tender, Lungs Clear, No Accessory Muscle Use, No Respiratory Distress, Normal Breath Sounds Cardiovascular: No Edema, No JVD, No Murmur, No Gallop, Normal Peripheral Pulses, Regular Rate/Rhythm Breast Exam: Deferred Gastrointestinal: No Organomegaly, No Pulsatile Mass, Normal Bowel Sounds, Soft, Other (Positive epigastric tenderness to palpation) Genitalia: Deferred Pelvic: Deferred Rectal: Deferred Extremities: No calf tenderness, Normal capillary refill, Normal inspection, Normal range of motion, Non-tender, No pedal edema Musculoskeletal : Apperance: Normal Neurologic: Alert, programming director II-XII nml as Tested, No Motor Deficits, Normal Affect, Normal Mood, No Sensory Deficits Cerebellar Function: NOT DONE Reflexes: NOT DONE Skin: Dry, Normal Color, Warm Lymphatic: No Adenopathy Was a procedure done? Was a procedure done?: No GI differential Dx Differential Diagnosis: AAA, Appendicitis, Angina/MD, Esophagitis, Gastrit is/PUD, Gastroenteritis, GI hemorrhage, Hepatitis, Pancreatitis, , Kidney Stone X-Ray, Labs, Meds, VS Vital Signs Date Time Temp Pulse Resp B/P (MAP) Pulse Ox O2 Delivery O2 Flow Rate FiO2 10/21/24 11:15 79 18 117/69 (85) 94 10/21/24 11:15 79 18 94 Room Air 10/21/24 11:11 79 18 117/69 10/21/24 10:23 97.4 78 18 123/81 100 97.4 Lab Test 10/21/24 11:06 Range/Units White Blood Count 9.6 4.4-10.8 10^3/uL Red Blood Count 4.60 4.0-5.20 10^6/uL Hemoglobin 14.1 12.2-16.2 g/dL Hematocrit 41.5 36.0-46.0 % Mean Corpuscular Volume 90.3 80.0-100.0 fL Mean Corpuscular Hemoglobin 30.7 28.0-32.0 pg Mean Corpuscular Hemoglobin Concent 34.0 32.0-36.0 g/dL Red Cell Distribution Width 14.8 H 11.8-14.3 % Platelet Count 262 140-450 10^3/uL Mean Platelet Volume 6.6 L 6.9-10.8 fL Neutrophils (%) (Auto) 87.5 H 37.0-80.0 % Lymphocytes (%) (Auto) 8.3 L 10.0-50.0 % Monocytes (%) (Auto) 3.9 0.0-12.0 % Eosinophils (%) (Auto) 0.0 0.0-7.0 % Basophils (%) (Auto) 0.3 0.0-2.0 % Neutrophils # (Auto) 8.4 1.6-8.6 10 ^3/uL Lymphocytes # (Auto) 0.8 0.4-5.4 10 ^3/uL Monocytes # (Auto) 0.4 0-1.3 10 ^3/uL Eosinophils # (Auto) 0 0-0.8 10 ^3/uL Basophils # (Auto) 0 0-0.2 10 ^3/uL Nucleated Red Blood Cells 0.0 % Sodium Level 142 136-145 mmol/L Potassium Level 4.1 3.5-5.1 mmol/L Chloride Level 108 H 98-107 mmol/L Carbon Dioxide Level 21 20-31 mmol/L Anion Gap 13 5-15 Blood Urea Nitrogen 10 9-23 mg/dL Creatinine 0.68 0.550-1.02 mg/dL Glomerular Filtration Rate Calc 116 >90 mL/min BUN/Creatinine Ratio 14.7 10.0-20.0 Serum Glucose 102 74-106 mg/dL Calcium Level 8.7 8.7-10.4 mg/dL Lipase 539 H 12-53 U/L Current Medications Medications (Trade) Dose Ordered Sig/Dom Route Start Time Stop Time Status Last Admin Morphine Sulfate 4 mg ONCE ONCE IV 10/21/24 11:00 10/21/24 11:01 DC 10/21/24 11:11 Ondansetron HCl (Zofran) 4 mg O ONCE IV 10/21/24 11:00 10/21/24 11:01 DC 10/21/24 11:09 Sodium Chloride 1,000 ml @ 1,000 mls/hr Q1H ONCE IV 10/21/24 11:00 10/21/24 11:59 10/21/24 11:11 X-Ray, Labs, Meds, VS Comment 34-year-old female with history of alcohol-induced pancreatitis here with complaints of abdominal pain/nausea/vomiting that she states feels identical to prior pancreatitis episodes. Physical exam with evidence of epigastric tenderness to palpation, otherwise unremarkable. Labs notable for a significantly elevated lipase. Patient presentation consistent with alcohol- induced pancreatitis. Patient was made NPO and started on IV fluids, morphine, and Zofran and will be admitted for further management and care of her pancreatitis. Time of 1ST Reevaluation: 11:20 Reevaluation 1ST: Unchanged Time of 2ND Reevaluation: 11:53 Reevaluation 2ND: Improved Patient Education/Counseling: Diagnosis, Treatment, Prognosis Family Education/Counseling: Diagnosis, Treatment, Prognosis SEPSIS Sepsis Screen Date sepsis recognized/suspect: Oct 21, 2024 Time Sepsis recognized/suspect: 1024 Recent Procedure: No On Antibiotic Therapy: No Respiratory Rate >20: No Heart Rate >90: No Temp<36 C (96.8 F) or >38.3 C: No SBP <90 or MAP <65 mmHG: No New Acute Mental Status Change: No Is the patient on CPAP, BIPAP,: No IV fluid challenge completed?: No Physician Orders Test, Urine (10/21/24 10:52) Sodium Chloride 0.9% (10/21/24 11:00) Npo (Nothing By Mouth) Diet (10/21/24 Lunch) Vital Signs Date Time Temp Pulse Resp B/P (MAP) Pulse Ox O2 Delivery O2 Flow Rate FiO2 10/21/24 11:15 79 18 117/69 (85) 94 10/21/24 11:15 79 18 94 Room Air 10/21/24 11:11 79 18 117/69 10/21/24 10:23 97.4 78 18 123/81 100 97.4 Laboratory Tests Test 10/21/24 11:06 White Blood Count 9.6 10^3/uL (4.4-10.8) Medications Medications Dose Ordered Sig/Dom Route Start Time Stop Time Status Last Admin Dose Admin Morphine Sulfate 4 mg ONCE ONCE IV 10/21/24 11:00 10/21/24 11:01 DC 10/21/24 11:11 Ondansetron HCl 4 mg O ONCE IV 10/21/24 11:00 10/21/24 11:01 DC 10/21/24 11:09 Sodium Chloride 1,000 ml @ 1,000 mls/hr Q1H ONCE IV 10/21/24 11:00 10/21/24 11:59 10/21/24 11:11 Departure 1 Departure Time of Disposition: 11:53 Impression: Primary Impression: Pancreatitis Additional Impression: Alcohol abuse Disposition: 02 SHORT TERM HOSPITAL Admit to: Tele Condition: Stable Critical Care Note Critical Care Time?: Yes (35 min-critical care time only) Stability Stability form required: No Heart Score Heart Score: Heart Score Response (Comments) Value History N/A 0 EKG N/A 0 Age N/A 0 Risk Factors N/A 0 Troponin N/A 0 Total 0 I personally scribed for DEAN ABARCA MD ([email or web address]) on 10/21/24 at 11:00. Electronically submitted by Kim Tee ([email or web address]). DEAN ABARCA MD Oct 21, 2024 11:00
[2024-10-21] MEDS: ONDANSETRON HCL 4 MG/2 ML VIAL IV ONE (11:09)
[2024-10-21] MEDS: SODIUM CHLORIDE 0.9% 1,000 ML IV ONE (11:11)
[2024-10-21] MEDS: MORPHINE SULFATE 4 MG/ML SYR/VIAL IV ONE (11:11)
[2024-10-21 11:33] LABS: Hematocrit 41.5 % (36.0-46.0); Hemoglobin 14.1 g/dL (12.2-16.2); Mean Corpuscular Hemoglobin 30.7 pg (28.0-32.0); Mean Corpuscular Volume 90.3 fL (80.0-100.0); Nucleated Red Blood Cells % 0.0 %
[2024-10-21 11:35] LABS: Potassium 4.1 mmol/L (3.5-5.1); Sodium 142 mmol/L (136-145)
[2024-10-21 11:36] LABS: Anion Gap 13 (5-15); Carbon Dioxide 21 mmol/L (20-31)
[2024-10-21 11:39] LABS: Calcium 8.7 mg/dL (8.7-10.4); Chloride 108 mmol/L (98-107)
[2024-10-21 11:41] LABS: BUN/Creatinine Ratio 14.7 (10.0-20.0); Blood Urea Nitrogen 10 mg/dL (9-23); Glucose 102 mg/dL (74-106)
[2024-10-21] MEDS ORDERED: ESCI5TAB20 PO (13:41)
[2024-10-21] MEDS ORDERED: LORA-1123 PO (13:41)
[2024-10-21] MEDS ORDERED: ONDANSETRON HCL 4 MG/2 ML VIAL IV PRN (13:45)
[2024-10-21] MEDS ORDERED: DOCUSATE SOD 100 MG CAP PO PRN (13:45)
[2024-10-21] MEDS ORDERED: ACETAMINOPHEN 325 MG TAB PO PRN (13:45)
--- NOTE | 2024-10-21 14:06 | DVHHP2 ---
History of Present Illness Reason for Visit: Abdominal pain History of Present Illness Deborah Hoffman is a 34-year-old female with past medical history of seizures, pancreatitis, ETOH dependance, depression, and anxiety, who came to the hospital for abdominal pain. Patient states her pain began and worsened prompting her to come to the hospital. She states she has had pancreatitis in the past and this feels the same. She is a daily drinker of 3-4 tall cans of beer/day, last drink was yesterday (10/20/2024). She would like assistance with getting sober. 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 GI: Other (pancreatitis) Psych: Anxiety, Depression Past Surgical History: None Smoke: <1 pack per day ALCOHOL: heavy (3-4 tall cans of beer day) Drugs: None Lives: with Family Domestic Violence: Neg Review of Systems Constitutional: No: Fever, Chills, Sweats, Weakness, Malaise, Other Eyes: No: Pain, Vision change, Conjunctivae inflammation, Eyelid inflammation, Other, Redness ENT: No: Ear pain, Ear discharge, Nose pain, Nose discharge, Nose congestion, Mouth pain, Mouth swelling, Throat pain, Throat swelling, Other Respiratory: No: Cough, Dry, Shortness of breath, SOB with excertion, Wheezing, Hemoptysis, Pleuritic Pain, Sputum, Wheezing, Other Cardiovascular: No: Chest Pain, Palpitations, Orthopnea, Paroxysmal Noc. Dyspnea, Edema, Lt Headedness, Other Gastrointestinal: Nausea, Vomiting, Abdominal Pain; No: Diarrhea, Constipation, Melena, Hematochezia, Other Genitourinary: No Dysuria, No Frequency, No Incontinence, No Hematuria, No Retention, No Other Musculoskeletal: No: other, neck pain, shoulder pain, arm pain, back pain, hand pain, leg pain, foot pain Skin: No: Rash, Lesions, Jaundice, Bruising, Other Neurological: No: Weakness, Numbness, Incoordination, Change in speech, Conf usion, Seizures, Other Allergies: Coded Allergies: NO KNOWN ALLERGIES (Unverified , 06/14/22) Medications Current Medications Medications Dose Ordered Sig/Dom Route Start Time Stop Time Status Last Admin Dose Admin Acetaminophen/ Hydrocodone Bitart 1 tab Q4HP PRN PO 10/21/24 13:45 UNV Ondansetron HCl 4 mg Q4HP PRN IV 10/21/24 13:45 UNV Docusate Sodium 100 mg BIDPRN PRN PO 10/21/24 13:45 UNV Acetaminophen 650 mg Q6HP PRN PO 10/21/24 13:45 UNV Morphine Sulfate 2 mg Q4HPRN PRN IV 10/21/24 13:45 UNV Sodium Chloride 1,000 ml @ 100 mls/hr Q10H IV 10/21/24 13:45 UNV Chlordiazepoxide HCl 25 mg Q6HR PO 10/21/24 18:00 UNV Thiamine HCl 100 mg DAILY PO 10/22/24 10:00 UNV Exam Vital Signs Vital Signs Date Time Temp Pulse Resp B/P (MAP) Pulse Ox O2 Delivery O2 Flow Rate FiO2 10/21/24 12:20 80 18 118/82 (94) 96 10/21/24 11:15 Room Air 10/21/24 10:23 97.4 97.4 General Appearance: Alert, Oriented X3, Cooperative, moderate distress HEENT: Atraumatic, PERRLA Respiratory: Clear to auscultation, Normal air movement Cardiovascular: Regular rate, Normal S1, Normal S2, No murmurs Abdominal: Normal bowel sounds, Soft, Other (abdominal pain) Extremities: No clubbing, No cyanosis, No edema, Normal pulses, No tenderness/swelling Skin: No rashes, No breakdown, No significant lesion Neuro: Normal gait, Normal speech, Strength at 5/5 X4 ext, Normal tone Psych/Mental Status: Mental status NL, Mood NL Labs/Xrays Labs Test 10/21/24 12:32 10/21/24 11:06 Range/Units Urine Test Negative Negative White Blood Count 9.6 4.4-10.8 10^3/uL Red Blood Count 4.60 4.0-5.20 10^6/uL Hemoglobin 14.1 12.2-16.2 g/dL Hematocrit 41.5 36.0-46.0 % Mean Corpuscular Volume 90.3 80.0-100.0 fL Mean Corpuscular Hemoglobin 30.7 28.0-32.0 pg Mean Corpuscular Hemoglobin Concent 34.0 32.0-36.0 g/dL Red Cell Distribution Width 14.8 H 11.8-14.3 % Platelet Count 262 140-450 10^3/uL Mean Platelet Volume 6.6 L 6.9-10.8 fL Neutrophils (%) (Auto) 87.5 H 37.0-80.0 % Lymphocytes (%) (Auto) 8.3 L 10.0-50.0 % Monocytes (%) (Auto) 3.9 0.0-12.0 % Eosinophils (%) (Auto) 0.0 0.0-7.0 % Basophils (%) (Auto) 0.3 0.0-2.0 % Neutrophils # (Auto) 8.4 1.6-8.6 10 ^3/uL Lymphocytes # (Auto) 0.8 0.4-5.4 10 ^3/uL Monocytes # (Auto) 0.4 0-1.3 10 ^3/uL Eosinophils # (Auto) 0 0-0.8 10 ^3/uL Basophils # (Auto) 0 0-0.2 10 ^3/uL Nucleated Red Blood Cells 0.0 % Sodium Level 142 136-145 mmol/L Potassium Level 4.1 3.5-5.1 mmol/L Chloride Level 108 H 98-107 mmol/L Carbon Dioxide Level 21 20-31 mmol/L Anion Gap 13 5-15 Blood Urea Nitrogen 10 9-23 mg/dL Creatinine 0.68 0.550-1.02 mg/dL Glomerular Filtration Rate Calc 116 >90 mL/min BUN/Creatinine Ratio 14.7 10.0-20.0 Serum Glucose 102 74-106 mg/dL Calcium Level 8.7 8.7-10.4 mg/dL Amylase Level 563 H 30-118 U/L Lipase 539 H 12-53 U/L SEPSIS Sepsis Screen Date sepsis recognized/suspect: Oct 21, 2024 Time Sepsis recognized/suspect: 1025 Recent Procedure: No On Antibiotic Therapy: No Respiratory Rate >20: No Heart Rate >90: No Temp<36 C (96.8 F) or >38.3 C: No SBP <90 or MAP <65 mmHG: No New Acute Mental Status Change: No Is the patient on CPAP, BIPAP,: No IV fluid challenge completed?: No Physician Orders Npo (Nothing By Mouth) Diet (10/21/24 Lunch) Admit (10/21/24 13:36) Code Status (10/21/24 13:36) Hydrocodone-Acet 5/325mg Tab ([place] 5/32 (10/21/24 13:45) Ondansetron Hcl (Zofran) (10/21/24 13:45) Docusate Sodium Capsule (Colace Capsule) (10/21/24 13:45) Complete Blood Count (10/22/24 04:00) Comprehensive Metabolic Panel (10/22/24 04:00) Condition: Serious (10/21/24 13:36) Acetaminophen Tablet (Tylenol Tablet) (10/21/24 13:45) Morphine Sulfate Injection (10/21/24 13:45) NS (10/21/24 13:45) Chlordiazepoxide Hcl Capsule (Librium Ca (10/21/24 18:00) Thiamine Tab (10/21/24 13:45) Thiamine Tab (10/22/24 10:00) Multiple Vitamin Tablet (Mvi Tab) (10/21/24 13:45) Multiple Vitamin Tablet (Mvi Tab) (10/22/24 10:00) Folic Acid Tablet (10/21/24 13:45) Folic Acid Tablet (10/22/24 10:00) (Nf) Escitalopram Oxalate (10/22/24 10:00) (Nf) Lorazepam (10/21/24 13:45) Vital Signs Date Time Temp Pulse Resp B/P (MAP) Pulse Ox O2 Delivery O2 Flow Rate FiO2 10/21/24 12:20 80 18 118/82 (94) 96 10/21/24 12:18 80 18 118/82 10/21/24 11:15 79 18 117/69 (85) 94 10/21/24 11:15 79 18 94 Room Air 10/21/24 11:11 79 18 117/69 10/21/24 10:23 97.4 78 18 123/81 100 97.4 Laboratory Tests Test 10/21/24 11:06 White Blood Count 9.6 10^3/uL (4.4-10.8) Medications Medications Dose Ordered Sig/Dom Route Start Time Stop Time Status Last Admin Dose Admin Morphine Sulfate 4 mg ONCE ONCE IV 10/21/24 11:00 10/21/24 11:01 DC 10/21/24 11:11 4 MG Ondansetron HCl 4 mg O ONCE IV 10/21/24 11:00 10/21/24 11:01 DC 10/21/24 11:09 4 MG Sodium Chloride 1,000 ml @ 1,000 mls/hr Q1H ONCE IV 10/21/24 11:00 10/21/24 11:59 DC 10/21/24 11:11 1,000 MLS/HR Assessment/Plan Assessment/Plan Assessment: Pancreatitis, ETOH abuse, Seizures, Depression, PTSD, Plan: Admit to Med-Surg, Social service consult, IV hydration, Manage/Monitor electrolytes closely, NPO, Pain management, Seizure precautions, Lipase, amylase in am, PRN Librium for possible ETOH withdrawal, Supplements for possible ETOH withdrawal, Home medications reconciled, Plan discussed with: Patient My Orders Orders - SULLY GORDON Procedure Category Date Status Time Admit ADMIT 10/21/24 Transmitted 13:36 Code Status CODE 10/21/24 Transmitted 13:36 Hydrocodone-Acet PHA 10/21/24 Logged 5/325mg Tab ([place] 13:45 Ondansetron Hcl PHA 10/21/24 Logged (Zofran) 13:45 Docusate Sodium PHA 10/21/24 Logged Capsule (Colace 13:45 Complete Blood Count LAB 10/22/24 Verified 04:00 Comprehensive LAB 10/22/24 Verified Metabolic Panel 04:00 Condition: Serious MARÍA ELENA 10/21/24 In Process 13:36 Acetaminophen Tablet PHA 10/21/24 Logged (Tylenol Tablet) 13:45 Morphine Sulfate PHA 10/21/24 Logged Injection 13:45 NS PHA 10/21/24 Transmitted 13:45 Chlordiazepoxide Hcl PHA 10/21/24 Transmitted Capsule (Librium Ca 18:00 Thiamine Tab PHA 10/21/24 Transmitted 13:45 Thiamine Tab PHA 10/22/24 Transmitted 10:00 Multiple Vitamin PHA 10/21/24 Transmitted Tablet (Mvi Tab) 13:45 Multiple Vitamin PHA 10/22/24 Transmitted Tablet (Mvi Tab) 10:00 Folic Acid Tablet PHA 10/21/24 Transmitted 13:45 Folic Acid Tablet PHA 10/22/24 Transmitted 10:00 (Nf) Escitalopram PHA 10/22/24 Transmitted Oxalate 10:00 (Nf) Lorazepam PHA 10/21/24 Transmitted 13:45 Date of Service: Oct 21, 2024 Billing Provider: SULLY GORDON Common Visit Codes: [id number] INP/OBS CARE (MOD) SULLY GORDONP Oct 21, 2024 14:06
[2024-10-21 15:17] VITALS: BP 117/80; PULSE 73; RESP 16; TEMP 98; O2SAT 98
[2024-10-21] MEDS: MORPHINE SULFATE INJ 2 MG/ml SYRG IV PRN ×2 (15:25→19:40)
[2024-10-21] MEDS: SODIUM CHLORIDE 0.9% 1,000 ML IV SCH (15:26)
[2024-10-21] MEDS: FOLIC ACID 1 MG TAB PO ONE (15:30)
[2024-10-21] MEDS: THIAMINE HCL 100 MG TAB PO ONE (15:30)
[2024-10-21 15:31] VITALS: BP 117/80; PULSE 73; PULSE 86; RESP 16; RESP 18; TEMP 98; O2SAT 98
[2024-10-21] MEDS: MULTIPLE VITAMIN TAB PO ONE (15:31)
[2024-10-21] MEDS ORDERED: LEVE750T3 PO (15:47)
[2024-10-21 17:21] VITALS: BP 127/83; PULSE 87; RESP 20; TEMP 98.1; O2SAT 100
[2024-10-21] MEDS ORDERED: KEP500T PO (17:23)
[2024-10-21] MEDS ORDERED: OLAN1TAB7 PO (17:23)
[2024-10-21] MEDS: levETIRAcetam 500 MG TAB PO SCH (22:07)
[2024-10-21] MEDS: OLANZapine 5 MG TAB PO SCH (22:07)
[2024-10-22 04:26] LABS: Hematocrit 37.7 % (36.0-46.0); Hemoglobin 13.1 g/dL (12.2-16.2); Mean Corpuscular Hemoglobin 31.3 pg (28.0-32.0); Mean Corpuscular Volume 90.0 fL (80.0-100.0); Nucleated Red Blood Cells % 0.0 %
[2024-10-22 04:44] LABS: Alanine Aminotransferase < 9 U/L (7-40); Albumin 3.8 g/dL (3.2-4.8); Alkaline Phosphatase 82 U/L (46-116); Anion Gap 11 (5-15); BUN/Creatinine Ratio 11.5 (10.0-20.0); Bilirubin, Total 0.9 mg/dL (0.2-1.0); Blood Urea Nitrogen 7 mg/dL (9-23); Calcium 8.0 mg/dL (8.7-10.4); Carbon Dioxide 22 mmol/L (20-31); Chloride 105 mmol/L (98-107); Glucose 80 mg/dL (74-106); Lipase 542 U/L (12-53); Potassium 3.1 mmol/L (3.5-5.1); Sodium 138 mmol/L (136-145); Total Protein 5.8 g/dL (5.7-8.2)
[2024-10-22 04:49] LABS: Amylase 713 U/L (30-118)
[2024-10-22 08:45] VITALS: BP 108/78; PULSE 76; RESP 18; TEMP 98.2; O2SAT 98
[2024-10-22] MEDS: MULTIPLE VITAMIN TAB PO SCH (09:22)
[2024-10-22] MEDS: CITALOPRAM HYDROBR 20 MG TAB PO SCH (09:23)
[2024-10-22] MEDS: THIAMINE HCL 100 MG TAB PO SCH (09:24)
[2024-10-22] MEDS: FOLIC ACID 1 MG TAB PO SCH (09:24)
[2024-10-22] MEDS: MORPHINE SULFATE INJ 2 MG/ml SYRG IV PRN (09:26)
[2024-10-22] MEDS: POTASSIUM EFFERVESENT TAB 25 MEQ GT ONE (09:32)
--- NOTE | 2024-10-22 12:06 | DVH ---
Indication: hx of pancreatitis, elevated lipase 542 Technique: CT axial images of the abdomen and pelvis are obtained without contrast. Coronal and sagit cindy reformats were obtained. Radiation Dose Information: CTDI volume is 8.19 mGy. Dose-length product is 3.92 mGy*cm Comparison: CT CT AB PEL WO CON-NO ORAL OR IV on DOS: 03/14/24, CT CT AB PEL WO CON-NO ORAL OR IV on DO S: 06/14/22 FINDINGS: There is limited interpretation of the abdomen and pelvis without administration of intravenous contr ast. Lung bases demonstrate no pleural effusion. Adrenal glands, spleen unremarkable. Extensive peripancreatic stranding, edema hyper dense lesion gerard r the pancreatic head measuring 1.[address] evidence for cholelithiasis. Hepatic steatosis. The kidneys demonstrate no hydronephrosis, nephrolithiasis. Stomach is partially distended. Small bowel loops are moderately distended. Normal appendix. Retroperitoneal edema. Fluid in the right paracolic gutter. Small amount of free pelvic fluid. Bladder is partially distended. No inguinal lymphadenopathy. No aggressive osseous process. IMPRESSION: Limited evaluation without contrast. Extensive peripancreatic edema / stranding consistent with acute pancreatitis changes. Hyperdense lesion near the pancreatic head measuring 1.9 cm, indeterminate. Recommend follow-up CT a bdomen pelvis with contrast in the short-term interval to evaluate. Mesenteric edema, small amount of free pelvic fluid, likely related to underlying pancreatitis. Hepatic steatosis. Other findings as described.
[2024-10-22 13:07] VITALS: BP 110/71; PULSE 84; RESP 16; TEMP 98; O2SAT 97
[2024-10-22 13:57] LABS: Triglycerides 129 mg/dL (< 150)
[2024-10-22 13:59] LABS: Cholesterol 161 mg/dL (< 200)
[2024-10-22 14:00] LABS: HDL Cholesterol 63 mg/dL (40-59)
--- NOTE | 2024-10-22 14:09 | DVH ---
INDICATION: gall stone TECHNIQUE: Multiple real-time sonographic images of the abdomen were obtained. COMPARISON: US GALLBLADDER on DOS: 03/14/24, US GALLBLADDER on DOS: 06/01/22 FINDINGS: The liver is homogenous in echogenicity. The liver measures 17cm. No intrahepatic biliary ductal dilatation is noted. The gallbladder wall measures 0.2 cm and is unremarkable. No gallstones or sludge is seen. The commo n duct measures 0.6 cm and is unremarkable. No pericholecystic fluid is noted. The right kidney measures 11cm. No hydronephrosis. The pancreas is not well visualized due to obscuration from bowel gas. The visualized portions of the IVC and aorta are grossly unremarkable. IMPRESSION: Hepatic steatosis.
[2024-10-22 14:20] VITALS: PULSE 70; RESP 18; O2SAT 98
--- NOTE | 2024-10-22 14:37 | DVHPNRES ---
Progress Note Date Seen: Oct 22, 2024 Resident Creating Document: BRAIN CHRISTINA Medical Necessity Reason Pt with a Central, PICC or Fol: No Subjective Review of Systems This is 34-year-old female with a history of pancreatitis, seizures, anxiety, and depression who presents to the emergency department with abdominal pain, nausea, and vomiting that began earlier this morning. She reports that the pain is identical to previous episodes of pancreatitis, for which she was previously hospitalized for 10 days. Her last alcoholic drink was on 10/20/2024; she typically consumes 34 tall cans of beer daily. She expresses a desire to stop drinking and is seeking assistance with sobriety. She denies headache, dizziness, hematemesis, dysuria, hematuria, chest pain, shortness of breath, fever, chills, or other associated symptoms at this time. Past medical history: pancreatitis, seizures, anxiety, depression Past surgical history: none Smoke: <1 pack per day ALCOHOL: heavy (3-4 tall cans of beer day) Drugs: None Lives: with Family Domestic Violence: Neg Allergies: Coded Allergies: NO KNOWN ALLERGIES (Unverified , 06/14/22) Patient seen and examined at bedside. Patient is alert and oriented to time, place person and responding to all questions. Eyes: No Pain, No Vision change, No Conjunctivae inflammation, No Eyelid inflammation, No Other, No Redness ENT: No Ear pain, No Ear discharge, No Nose pain, No Nose discharge, No Nose congestion, No Mouth pain, No Mouth swelling, No Throat pain, No Throat swelling, No Other Cardiovascular: Chest Pain, No Palpitations, No Orthopnea, No Paroxysmal No Dyspnea, No Edema, No Lt Headedness, No Other Respiratory: No Cough, No Dry, No Shortness of breath, No SOB with exertion, No Wheezing, No Hemoptysis, No Pleuritic Pain, No Sputum, No Other Gastrointestinal: Nausea, Vomiting, Abdominal Pain, Diarrhea, No Constipation, No Melena, No Hematochezia, No Other Genitourinary: No Dysuria, No Frequency, No Incontinence, No Hematuria, No Retention, No Other Musculoskeletal: No other, No neck pain, No shoulder pain, No arm pain, No back pain, No hand pain, No leg pain, No foot pain Skin: No Rash, No Lesions, No Jaundice, No Bruising, No Other Objective vital signs Vital Sign Date Time Temp Pulse Resp B/P (MAP) Pulse Ox O2 Delivery O2 Flow Rate FiO2 10/22/24 13:07 98.0 84 16 110/71 (84) 97 98.0 10/22/24 08:19 Room Air* 0 21 Total Intake and Output 10/21/24 10/21/24 10/22/24 15:00 23:00 07:00 Intake Total 0 ml Balance 0 ml medications Current Medications Medications Dose Ordered Sig/Dom Route Start Time Stop Time Status Last Admin Dose Admin Acetaminophen/ Hydrocodone Bitart 1 tab Q4HP PRN PO 10/21/24 13:45 Ondansetron HCl 4 mg Q4HP PRN IV 10/21/24 13:45 Docusate Sodium 100 mg BIDPRN PRN PO 10/21/24 13:45 Acetaminophen 650 mg Q6HP PRN PO 10/21/24 13:45 Sodium Chloride 1,000 ml @ 100 mls/hr Q10H IV 10/21/24 13:45 10/22/24 09:25 100 MLS/HR Thiamine HCl 100 mg DAILY PO 10/22/24 10:00 10/22/24 09:24 100 MG Multivitamins 1 tab DAILY PO 10/22/24 10:00 10/22/24 09:22 1 TAB Folic Acid 1 mg DAILY PO 10/22/24 10:00 10/22/24 09:24 1 MG Citalopram Hydrobromide 30 mg DAILY PO 10/22/24 10:00 10/22/24 09:23 30 MG Lorazepam 1 mg TIDP PRN PO 10/21/24 14:15 Chlordiazepoxide HCl 25 mg Q6HR PO 10/21/24 17:15 10/22/24 13:08 25 MG Levetiracetam 750 mg BID PO 10/21/24 22:00 10/22/24 09:23 750 MG Olanzapine 5 mg HS PO 10/21/24 22:00 10/21/24 22:07 5 MG Morphine Sulfate 2 mg Q4HPRN PRN IV 10/22/24 09:00 10/22/24 09:26 2 MG Examination General Appearance: Alert, Oriented X3, Cooperative, moderate distress HEENT: Atraumatic, PERRLA Respiratory: Clear to auscultation, Normal air movement Cardiovascular: Regular rate, Normal S1, Normal S2, No murmurs Abdominal: Normal bowel sounds, Soft, Other (abdominal pain) Extremities: No clubbing, No cyanosis, No edema, Normal pulses, No tenderness/swelling Skin: No rashes, No breakdown, No significant lesion Neuro: Normal gait, Normal speech, Strength at 5/5 X4 ext, Normal tone Psych/Mental Status: Mental status NL, Mood NL laboratory and microbiology Laboratory Tests 10/22/24 03:37 Test 10/22/24 03:37 Range/Units Serum Glucose 80 74-106 mg/dL Labs and/or images reviewed: Labs reviewed by me, Image(s) reviewed by me Problem List/Assessment/Plan Problem List/Assessment/Plan # Acute intractable abdominal pain likely due to acute on questionable chronic pancreatitis # history of pancreatitis in March 2024 # pancreatic head lesion: 1.9 cm -Abdomen/Pelvis CT: Extensive peripancreatic edema / stranding consistent with acute pancreatitis changes.Hyperdense lesion near the pancreatic head measuring 1.9 cm, indeterminate. Recommend follow-up CT abdomen pelvis with contrast in the short-term interval to evaluate. Mesenteric edema, small amount of free pelvic fluid, likely related to underlying pancreatitis. Hepatic steatosis. Morphine Tylenil zofran [place] -Amylase: 713 -Lipase: 542 -piperacillin-tazobactam -folic acid -multivitamins -Thiamine -Sodium chloride # Hepatic steatosis Liver US- Hepatic steatosis # seizure disorder levetiracetam # depression # anxiety # PTSD olanzapine Ativan citalopram # Alcohol use disorder # alcohol intoxication with alcohol withdrawal, CIWA score 10 librium per protocol Folic acid, thiamine, multivitamin Goals of care: Full code, discussed for >16 minutes on 10/22/24 Plan discussed with patient Plan discussed with Dr. Acevedo Plan discussed with: Patient My Orders My Orders Orders - BRAIN CHRISTINA Procedure Category Date Status Time Comprehensive LAB 10/22/24 Logged Metabolic Panel 14:04 Date of Service: Oct 22, 2024 Billing Provider: SHELTON ACEVEDO MD Common Visit Codes: [id number] INP/OBS CARE(HIGH) BRAIN CHRISTINA Oct 22, 2024 14:37 EVE NATH Oct 23, 2024 07:00 SHELTON ACEVEDO MD Oct 27, 2024 19:07
[2024-10-22] MEDS: PIPERACILLIN-TAZOB 3.375GM 100 ML IV SCH (15:41)
[2024-10-22 17:49] LABS: Albumin 4.0 g/dL (3.2-4.8); Alkaline Phosphatase 87 U/L (46-116); Anion Gap 12 (5-15); Bilirubin, Total 0.8 mg/dL (0.2-1.0); Carbon Dioxide 23 mmol/L (20-31); Chloride 104 mmol/L (98-107); Glucose 79 mg/dL (74-106); Sodium 139 mmol/L (136-145); Total Protein 6.0 g/dL (5.7-8.2)
[2024-10-22 17:51] LABS: Alanine Aminotransferase < 9 U/L (7-40); BUN/Creatinine Ratio 8.2 (10.0-20.0); Blood Urea Nitrogen < 5 mg/dL (9-23); Calcium 8.3 mg/dL (8.7-10.4); Potassium 3.4 mmol/L (3.5-5.1)
[2024-10-22 21:00] VITALS: BP 123/79; PULSE 72; RESP 19; TEMP 97.9; O2SAT 98
[2024-10-23 01:00] VITALS: BP 106/76; PULSE 92; RESP 18; TEMP 97.5; O2SAT 98
[2024-10-23 05:00] VITALS: BP 121/77; PULSE 74; RESP 18; TEMP 97.3; O2SAT 98
[2024-10-23 06:07] LABS: Hematocrit 36.4 % (36.0-46.0); Hemoglobin 12.8 g/dL (12.2-16.2); Mean Corpuscular Hemoglobin 31.5 pg (28.0-32.0); Mean Corpuscular Volume 89.6 fL (80.0-100.0); Nucleated Red Blood Cells % 0.1 %
[2024-10-23 06:39] LABS: Anion Gap 13 (5-15); Carbon Dioxide 21 mmol/L (20-31); Chloride 104 mmol/L (98-107); Sodium 138 mmol/L (136-145)
[2024-10-23 06:45] LABS: BUN/Creatinine Ratio 10.2 (10.0-20.0)
[2024-10-23 06:59] LABS: Blood Urea Nitrogen 6 mg/dL (9-23); Calcium 8.3 mg/dL (8.7-10.4); Glucose 69 mg/dL (74-106); Potassium 3.3 mmol/L (3.5-5.1)
[2024-10-23 07:27] LABS: Magnesium 1.8 mg/dL (1.6-2.6)
[2024-10-23 07:38] LABS: Lipase 588.0 U/L (12-53)
[2024-10-23 08:30] VITALS: BP 102/68; PULSE 75; RESP 18; TEMP 97.9; O2SAT 97
[2024-10-23] MEDS: POTASSIUM EFFERVESENT TAB 25 MEQ PO ONE (10:39)
[2024-10-23] MEDS: D5W/SOD CHLO 0.9% 1,000 ML IV SCH (11:45)
[2024-10-23 13:20] VITALS: BP 109/75; PULSE 74; RESP 16; TEMP 97.7; O2SAT 100
[2024-10-23] MEDS ORDERED: IOHEXOL 300 MG/ML 100ML BOTTLE IJ ONE (13:44)
--- NOTE | 2024-10-23 14:31 | DVHINCON2 ---
GI Consult Consult Note GI consult note Date of Consultation: 10/2024 Chief Complaint: 1.9 cm mass in pancreatic head Referring Physician: Dr. Rodriguez H&P: 34-year-old female with past medical history of seizures, pancreatitis, alcohol dependence, depression and anxiety admitted with abdominal pain. Patient's pain is mostly in the epigastric area and it has been worse in the past week. Patient has nausea no vomiting. Patient has history of alcohol use. And had quit for five months but restarted about a month ago. Patient has had multiple hospitalization for pancreatitis. No history of pancreatic cyst in the past. Status post EGD 2017 diagnosed with hiatal hernia Past Medical History: Seizure, pancreatitis, anxiety, depression Past Surgical History: Social History: Smoke: <1 pack per day ALCOHOL: heavy (3-4 tall cans of beer day) Drugs: None Lives: with Family Family History: Noncontributory Review of Systems: Constitutional: no fever, chill, weight loss HEENT: no eye pain, no hearing loss, no oral lesion, no scleral icterus Heart: no chest pain, no chest pressure Lung: no cough, no dyspnea with exertion Abdomen: see HPI Physical exam: General: NAD, AAOX3 Chest: lung das clear to auscultation Heart: RRR, no murmur Abdomen: Moderate tenderness to palpation, +BS Labs: Labs Test 10/23/24 05:48 10/22/24 17:15 10/22/24 03:37 10/21/24 12:32 Range/Units White Blood Count 6.0 4.4-10.8 10^3/uL Red Blood Count 4.06 4.0-5.20 10^6/uL Hemoglobin 12.8 12.2-16.2 g/dL Hematocrit 36.4 36.0-46.0 % Mean Corpuscular Volume 89.6 80.0-100.0 fL Mean Corpuscular Hemoglobin 31.5 28.0-32.0 pg Mean Corpuscular Hemoglobin Concent 35.1 32.0-36.0 g/dL Red Cell Distribution Width 14.0 11.8-14.3 % Platelet Count 193 140-450 10^3/uL Mean Platelet Volume 6.7 L 6.9-10.8 fL Neutrophils (%) (Auto) 76.6 37.0-80.0 % Lymphocytes (%) (Auto) 16.9 10.0-50.0 % Monocytes (%) (Auto) 6.1 0.0-12.0 % Eosinophils (%) (Auto) 0.1 0.0-7.0 % Basophils (%) (Auto) 0.3 0.0-2.0 % Neutrophils # (Auto) 4.6 1.6-8.6 10 ^3/uL Lymphocytes # (Auto) 1.0 0.4-5.4 10 ^3/uL Monocytes # (Auto) 0.4 0-1.3 10 ^3/uL Eosinophils # (Auto) 0 0-0.8 10 ^3/uL Basophils # (Auto) 0 0-0.2 10 ^3/uL Nucleated Red Blood Cells 0.1 % Sodium Level 138 136-145 mmol/L Potassium Level 3.3 L 3.5-5.1 mmol/L Chloride Level 104 98-107 mmol/L Carbon Dioxide Level 21 20-31 mmol/L Anion Gap 13 5-15 Blood Urea Nitrogen 6 L 9-23 mg/dL Creatinine 0.59 0.550-1.02 mg/dL Glomerular Filtration Rate Calc 120 >90 mL/min BUN/Creatinine Ratio 10.2 10.0-20.0 Serum Glucose 69 L 74-106 mg/dL Calcium Level 8.3 L 8.7-10.4 mg/dL Magnesium Level 1.8 1.6-2.6 mg/dL Lipase 588 H 12-53 U/L Total Bilirubin 0.8 0.2-1.0 mg/dL Aspartate Amino Transferase (AST) 24 13-40 U/L Alanine Aminotransferase (ALT) < 9 7-40 U/L Alkaline Phosphatase 87 46-116 U/L Total Protein 6.0 5.7-8.2 g/dL Albumin 4.0 3.2-4.8 g/dL Triglycerides Level 129 < 150 mg/dL Cholesterol Level 161 < 200 mg/dL LDL Cholesterol 90 < 100 mg/dL HDL Cholesterol 63 H 40-59 mg/dL Amylase Level 713 H 30-118 U/L Urine Test Negative Negative Imaging: CT abdomen pelvis IMPRESSION: Limited evaluation without contrast. Extensive peripancreatic edema / stranding consistent with acute pancreatitis changes. Hyperdense lesion near the pancreatic head measuring 1.9 cm, indeterminate. Recommend follow-up CT abdomen pelvis with contrast in the short-term interval to evaluate. Mesenteric edema, small amount of free pelvic fluid, likely related to underlying pancreatitis. Hepatic steatosis. Other findings as described. Assessment: Acute pancreatitis Hepatic steatosis Abnormal CT hyperdense lesion Alcohol use Plan: Discussed with Dr. Briggs CA 19-9 CT abdomen pelvis with contrast results pending In view of recurrent pancreatitis possible differential diagnosis could be pseudocyst for which repeat imaging is recommended in 6-8 weeks, and patient can follow-up on an outpatient basis for this DC alcohol discussed extensively We will continue to monitor patient Discussed plan with patient and RN Thank you for this consult Date of Service: Oct 23, 2024 Billing Provider: TIA ROCHA Common Visit Codes: CONSULT ONLY Consultation Codes: [id number] CONSULT <60MIN TIA ROCHA Oct 23, 2024 14:31
--- NOTE | 2024-10-23 14:58 | DVHPNRES ---
Progress Note Date Seen: Oct 23, 2024 Resident Creating Document: BRAIN CHRISTINA Medical Necessity Reason Pt with a Central, PICC or Fol: No Subjective Review of Systems This is 34-year-old female with a history of pancreatitis, seizures, anxiety, and depression who presents to the emergency department with abdominal pain, nausea, and vomiting that began earlier this morning. She reports that the pain is identical to previous episodes of pancreatitis, for which she was previously hospitalized for 10 days. Her last alcoholic drink was on 10/20/2024; she typically consumes 34 tall cans of beer daily. She expresses a desire to stop drinking and is seeking assistance with sobriety. She denies headache, dizziness, hematemesis, dysuria, hematuria, chest pain, shortness of breath, fever, chills, or other associated symptoms at this time. Patient seen at bedside. Patient still complained with abdominal pain, pressure, achy, burning pain. Initial lipase was 539 U/L, now increased to 588 U/L; initial amylase was 563 U/L, now 713 U/L, showing an uptrending pattern. Abdominal/Pelvic CT shows Hyperdense lesion near the pancreatic head measuring 1.9 cm, indeterminate. CA 19-[address] abdomen/pelvis with contrast results pending; in view of recurrent pancreatitis, pseudocyst is a possible differentialrepeat imaging recommended in 68 weeks with outpatient follow-up; alcohol cessation discussed extensively. Objective vital signs Vital Sign Date Time Temp Pulse Resp B/P (MAP) Pulse Ox O2 Delivery O2 Flow Rate FiO2 10/23/24 13:20 97.7 74 16 109/75 (86) 100 97.7 10/22/24 20:00 Room Air* 0 21 Total Intake and Output 10/22/24 10/22/24 10/23/24 15:00 23:00 07:00 Intake Total 100 ml 0 ml Balance 100 ml 0 ml medications Current Medications Medications Dose Ordered Sig/Dom Route Start Time Stop Time Status Last Admin Dose Admin Acetaminophen/ Hydrocodone Bitart 1 tab Q4HP PRN PO 10/21/24 13:45 Ondansetron HCl 4 mg Q4HP PRN IV 10/21/24 13:45 Docusate Sodium 100 mg BIDPRN PRN PO 10/21/24 13:45 Acetaminophen 650 mg Q6HP PRN PO 10/21/24 13:45 Thiamine HCl 100 mg DAILY PO 10/22/24 10:00 10/23/24 10:39 100 MG Multivitamins 1 tab DAILY PO 10/22/24 10:00 10/23/24 10:39 1 TAB Folic Acid 1 mg DAILY PO 10/22/24 10:00 10/23/24 10:39 1 MG Citalopram Hydrobromide 30 mg DAILY PO 10/22/24 10:00 10/23/24 10:38 30 MG Lorazepam 1 mg TIDP PRN PO 10/21/24 14:15 Chlordiazepoxide HCl 25 mg Q6HR PO 10/21/24 17:15 10/23/24 10:40 25 MG Levetiracetam 750 mg BID PO 10/21/24 22:00 10/23/24 10:39 750 MG Olanzapine 5 mg HS PO 10/21/24 22:00 10/22/24 21:49 5 MG Morphine Sulfate 2 mg Q4HPRN PRN IV 10/22/24 09:00 10/23/24 13:15 2 MG Piperacillin Sod/ Tazobactam Sod 100 ml @ 25 mls/hr Q8HR IV 10/22/24 15:00 10/23/24 05:22 25 MLS/HR Dextrose/Sodium Chloride 1,000 ml @ 100 mls/hr Q10H IV 10/23/24 11:45 Examination General Appearance: Alert, Oriented X3, Cooperative, moderate distress HEENT: Atraumatic, PERRLA Respiratory: Clear to auscultation, Normal air movement Cardiovascular: Regular rate, Normal S1, Normal S2, No murmurs Abdominal: Normal bowel sounds, Soft, Other (abdominal pain) Extremities: No clubbing, No cyanosis, No edema, Normal pulses, No tenderness/swelling Skin: No rashes, No breakdown, No significant lesion Neuro: Normal gait, Normal speech, Strength at 5/5 X4 ext, Normal tone Psych/Mental Status: Mental status NL, Mood NL laboratory and microbiology Laboratory Tests 10/23/24 05:48 Test 10/23/24 05:48 Range/Units Serum Glucose 69 L 74-106 mg/dL Labs and/or images reviewed: Labs reviewed by me, Image(s) reviewed by me Problem List/Assessment/Plan Problem List/Assessment/Plan # Acute intractable abdominal pain Morphine Tylenil zofran [place] # Acute Pancreatitis # Possible pseudocyst -Amylase: 563 > 713 -Lipase: 539 > 542 > 588 -piperacillin-tazobactam -folic acid -multivitamins -Thiamine -Sodium chloride -CA 19-9 -CT abdomen/pelvis with contrast (repeat imaging recommended in 68 weeks with outpatient follow-up) # pancreatic head lesion: 1.9 cm -Abdomen/Pelvis CT: Extensive peripancreatic edema / stranding consistent with acute pancreatitis changes.Hyperdense lesion near the pancreatic head measuring 1.9 cm, indeterminate. Recommend follow-up CT abdomen pelvis with contrast in the short-term interval to evaluate. Mesenteric edema, small amount of free pelvic fluid, likely related to underlying pancreatitis. Hepatic steatosis. # Hepatic steatosis Liver US- Hepatic steatosis # seizure disorder levetiracetam # depression # anxiety # PTSD olanzapine Ativan citalopram # Alcohol use disorder librium Goals of care: Full code, discussed for >16 minutes on 10/23/24 Plan discussed with patient Plan discussed with Dr. Acevedo Plan discussed with: Patient My Orders My Orders Orders - BRAIN CHRISTINA Procedure Category Date Status Time Complete Blood Count LAB 10/24/24 Verified 04:00 Basic Metabolic Panel LAB 10/24/24 Verified 04:00 Date of Service: Oct 23, 2024 Billing Provider: SHELTON ACEVEDO MD Common Visit Codes: [id number] INP/OBS CARE(HIGH) BRAIN CHRISTINA Oct 23, 2024 14:58 SHELTON ACEVEDO MD Oct 27, 2024 19:07
--- NOTE | 2024-10-23 15:45 | DVH ---
Exam: CT CT CHEST/AB/PL W CON- IV ONLY History: worsening pancreatitis, 2nd episode Comparison Study: CT CT AB PEL WO CON-NO ORAL OR IV on DOS: 10/22/24, CT CT AB PEL WITH IV CON ONLY on DOS: 03/17/24, CT CT AB PEL WO CON-NO ORAL OR IV on DOS: 03/14/24 Technique: Multidetector CT of the chest, abdomen and pelvis was performed from lower neck to pubic s ymphysis. Intravenous contrast was administered during this examination. Axial, coronal and sagittal multiplanar reformats were performed by the technologist on a separate workstation. Radiation Dose Information: CT Dose: CTDI volume is 16.38 mGy. Dose-length product is 672.79 mGy*cm Findings: Lower neck: Thyroid gland appears normal Lungs: Clear Heart/Vascular Structures: Unremarkable Lymph Nodes: No adenopathy Pleura: No pleural thickening or pleural effusions Liver: The liver is normal in size. No focal lesions. Normal hepatic vascular enhancement. Gallbladder and Biliary Tree: Unremarkable Spleen: Unremarkable Pancreas: Peripancreatic inflammatory changes not significantly changed. 1.9 cm hyperdense mass near the head of the pancreas unchanged. No cystic changes of the pancreas. Adrenal Glands: Unremarkable Kidneys: Kidneys demonstrate normal symmetric enhancement without focal lesions, calculi or hydroneph rosis. Bladder: Unremarkable Bowel: The stomach is grossly normal in appearance. Small bowel and colon are normal in caliber and d istribution. The appendix is not visualized; however, no secondary findings of acute appendicitis id entified. Ascites: Absent Lymphadenopathy: No mesenteric, retroperitoneal or periportal lymphadenopathy. Abdominal Wall and Mesentery: Unremarkable. Vasculature: The visualized abdominal aorta is normal in size and caliber. Abdominal and pelvic vess els demonstrate normal enhancement. Pelvic Organs: Free fluid in the cul-de-sac Musculoskeletal: No aggressive focal bony lesions, acute fractures or dislocation. IMPRESSION: 1. No significant changes the appearance of the pancreatitis or questionable hyperdense mass measurin g 19 mm near the pancreatic head. 2. Inflammatory changes in the right pericolic gutter. 3. Free fluid in the cul-de-sac. 4. No hydronephrosis or nephrolithiasis 5. No findings of bowel obstruction All CT scans at this medical facility are performed using dose modulation techniques as appropriate t o a performed exam including the following: Automated exposure control was utilized; adjustment of th e MA and/or KV according to patient size; and use of iterative reconstruction technique.
[2024-10-23 16:30] VITALS: BP 119/79; PULSE 73; RESP 17; TEMP 97.9; O2SAT 100
[2024-10-24 05:00] VITALS: BP 115/79; PULSE 65; RESP 16; TEMP 97.6; O2SAT 96
[2024-10-24 06:53] LABS: Hematocrit 36.3 % (36.0-46.0); Hemoglobin 12.5 g/dL (12.2-16.2); Mean Corpuscular Hemoglobin 31.2 pg (28.0-32.0); Mean Corpuscular Volume 90.6 fL (80.0-100.0); Nucleated Red Blood Cells % 0.1 %
[2024-10-24 06:54] LABS: Anion Gap 12 (5-15); Carbon Dioxide 24 mmol/L (20-31); Chloride 103 mmol/L (98-107); Sodium 139 mmol/L (136-145)
[2024-10-24 07:00] LABS: Glucose 87 mg/dL (74-106)
[2024-10-24 07:03] LABS: BUN/Creatinine Ratio 8.1 (10.0-20.0); Blood Urea Nitrogen < 5 mg/dL (9-23); Calcium 8.5 mg/dL (8.7-10.4); Potassium 3.1 mmol/L (3.5-5.1)
[2024-10-24 08:00] VITALS: PULSE 69
[2024-10-24 09:00] VITALS: BP 107/71; PULSE 69; RESP 19; TEMP 97.8; O2SAT 99
[2024-10-24] MEDS: POTASSIUM CHL 20MEQ/100ML 100 ML IV ONE (12:54)
[2024-10-24 13:00] VITALS: BP 116/81; PULSE 71; RESP 19; TEMP 97.8; O2SAT 99
[2024-10-24 17:00] VITALS: BP 104/60; PULSE 103; RESP 17; TEMP 98.8; O2SAT 98
--- NOTE | 2024-10-24 19:15 | DVHPNRES ---
Progress Note Date Seen: Oct 24, 2024 Resident Creating Document: BRAIN CHRISTINA Medical Necessity Reason Pt with a Central, PICC or Fol: No Subjective Review of Systems This is 34-year-old female with a history of pancreatitis, seizures, anxiety, and depression who presents to the emergency department with abdominal pain, nausea, and vomiting that began earlier this morning. She reports that the pain is identical to previous episodes of pancreatitis, for which she was previously hospitalized for 10 days. Her last alcoholic drink was on 10/20/2024; she typically consumes 34 tall cans of beer daily. She expresses a desire to stop drinking and is seeking assistance with sobriety. She denies headache, dizziness, hematemesis, dysuria, hematuria, chest pain, shortness of breath, fever, chills, or other associated symptoms at this time. Patient seen at bedside. Patient still complained with abdominal pain, pressure, achy, burning pain. Initial lipase was 539 U/L, now increased to 588 U/L; initial amylase was 563 U/L, now 713 U/L, showing an uptrending pattern. Abdominal/Pelvic CT shows Hyperdense lesion near the pancreatic head measuring 1.9 cm, indeterminate. CA 19-[address] abdomen/pelvis with contrast results pending; in view of recurrent pancreatitis, pseudocyst is a possible differentialrepeat imaging recommended in 68 weeks with outpatient follow-up; alcohol cessation discussed extensively. Patient is complaining of neck pain; bowel sounds are within normal limits. lipase was 588 U/L, now decreased to 368 U/L. NPO status has been discontinued, and a clear liquid diet has been initiated. Objective vital signs Vital Sign Date Time Temp Pulse Resp B/P (MAP) Pulse Ox O2 Delivery O2 Flow Rate FiO2 10/24/24 17:00 98.8 103 17 104/60 (75) 98 98.8 10/24/24 08:00 Room Air* 0 21 Total Intake and Output 10/23/24 10/23/24 10/24/24 15:00 23:00 07:00 Intake Total 0 ml 100 ml Balance 0 ml 100 ml medications Current Medications Medications Dose Ordered Sig/Dom Route Start Time Stop Time Status Last Admin Dose Admin Acetaminophen/ Hydrocodone Bitart 1 tab Q4HP PRN PO 10/21/24 13:45 Ondansetron HCl 4 mg Q4HP PRN IV 10/21/24 13:45 Docusate Sodium 100 mg BIDPRN PRN PO 10/21/24 13:45 Acetaminophen 650 mg Q6HP PRN PO 10/21/24 13:45 Thiamine HCl 100 mg DAILY PO 10/22/24 10:00 10/24/24 08:54 100 MG Multivitamins 1 tab DAILY PO 10/22/24 10:00 10/24/24 08:54 1 TAB Folic Acid 1 mg DAILY PO 10/22/24 10:00 10/24/24 08:54 1 MG Citalopram Hydrobromide 30 mg DAILY PO 10/22/24 10:00 10/24/24 08:54 30 MG Lorazepam 1 mg TIDP PRN PO 10/21/24 14:15 Chlordiazepoxide HCl 25 mg Q6HR PO 10/21/24 17:15 10/24/24 18:08 25 MG Levetiracetam 750 mg BID PO 10/21/24 22:00 10/24/24 08:54 750 MG Olanzapine 5 mg HS PO 10/21/24 22:00 10/23/24 22:02 5 MG Morphine Sulfate 2 mg Q4HPRN PRN IV 10/22/24 09:00 10/24/24 15:22 2 MG Piperacillin Sod/ Tazobactam Sod 100 ml @ 25 mls/hr Q8HR IV 10/22/24 15:00 10/24/24 06:15 25 MLS/HR Dextrose/Sodium Chloride 1,000 ml @ 100 mls/hr Q10H IV 10/23/24 11:45 10/24/24 17:53 100 MLS/HR Examination General Appearance: Alert, Oriented X3, Cooperative, moderate distress HEENT: Atraumatic, PERRLA Respiratory: Clear to auscultation, Normal air movement Cardiovascular: Regular rate, Normal S1, Normal S2, No murmurs Abdominal: Normal bowel sounds, Soft, Other (abdominal pain) Extremities: No clubbing, No cyanosis, No edema, Normal pulses, No tenderness/swelling Skin: No rashes, No breakdown, No significant lesion Neuro: Normal gait, Normal speech, Strength at 5/5 X4 ext, Normal tone Psych/Mental Status: Mental status NL, Mood NL laboratory and microbiology Laboratory Tests 10/24/24 05:46 Test 10/24/24 05:46 Range/Units Serum Glucose 87 74-106 mg/dL Labs and/or images reviewed: Labs reviewed by me, Image(s) reviewed by me Problem List/Assessment/Plan Problem List/Assessment/Plan # Acute intractable abdominal pain Morphine Tylenil zofran [place] # Acute Pancreatitis # Possible pseudocyst -Amylase: 563 > 713 -Lipase: 539 > 542 > 588 > 368 -piperacillin-tazobactam -folic acid -multivitamins -Thiamine -Sodium chloride -CA 19-9 -CT abdomen/pelvis with contrast (repeat imaging recommended in 68 weeks with outpatient follow-up) # pancreatic head lesion: 1.9 cm -Abdomen/Pelvis CT: Extensive peripancreatic edema / stranding consistent with acute pancreatitis changes.Hyperdense lesion near the pancreatic head measuring 1.9 cm, indeterminate. Recommend follow-up CT abdomen pelvis with contrast in the short-term interval to evaluate. Mesenteric edema, small amount of free pelvic fluid, likely related to underlying pancreatitis. Hepatic steatosis. # Hepatic steatosis Liver US- Hepatic steatosis # seizure disorder levetiracetam # depression # anxiety # PTSD olanzapine Ativan citalopram # Alcohol use disorder librium Goals of care: Full code, discussed for >16 minutes on 10/24/24 Plan discussed with patient Plan discussed with Dr. Acevedo Plan discussed with: Patient My Orders My Orders Orders - BRAIN CHRISTINA Procedure Category Date Status Time Complete Blood Count LAB 10/25/24 Verified 04:00 Basic Metabolic Panel LAB 10/25/24 Verified 04:00 Dietary Evaluation Review Comments: 1) Advance to soft diet as medically feasible 2) Monitor PO intake, lab values, weight trend, and I/O Expected Outcomes/Goals: To meet >75% estimated needs Lab values to improve Fu 2-3 days Date of Service: Oct 24, 2024 Billing Provider: SHELTON ACEVEDO MD Common Visit Codes: [id number] INP/OBS CARE(HIGH) BRAIN CHRISTINA Oct 24, 2024 19:15 SHELTON ACEVEDO MD Oct 27, 2024 19:08
[2024-10-24] MEDS: HYDROcodone-ACET 5/325MG TAB PO PRN (20:06)
[2024-10-24 21:00] VITALS: BP 110/69; PULSE 80; RESP 16; TEMP 97.8; O2SAT 97
--- NOTE | 2024-10-24 21:31 | DVHPN2 ---
Progress Note - Dictate Date Seen: Oct 24, 2024 Medical Necessity Reason Pt with a Central, PICC or Fol: No Subjective Lipase trending down started on clear liquids vital signs Vital Sign Date Time Temp Pulse Resp B/P (MAP) Pulse Ox O2 Delivery O2 Flow Rate FiO2 10/24/24 17:00 98.8 103 17 104/60 (75) 98 98.8 10/24/24 08:00 Room Air* 0 21 Total Intake and Output 10/23/24 10/23/24 10/24/24 15:00 23:00 07:00 Intake Total 0 ml 100 ml Balance 0 ml 100 ml medications Current Medications Medications Dose Ordered Sig/Dom Route Start Time Stop Time Status Last Admin Dose Admin Acetaminophen/ Hydrocodone Bitart 1 tab Q4HP PRN PO 10/21/24 13:45 10/24/24 20:06 1 TAB Ondansetron HCl 4 mg Q4HP PRN IV 10/21/24 13:45 Docusate Sodium 100 mg BIDPRN PRN PO 10/21/24 13:45 Acetaminophen 650 mg Q6HP PRN PO 10/21/24 13:45 Thiamine HCl 100 mg DAILY PO 10/22/24 10:00 10/24/24 08:54 100 MG Multivitamins 1 tab DAILY PO 10/22/24 10:00 10/24/24 08:54 1 TAB Folic Acid 1 mg DAILY PO 10/22/24 10:00 10/24/24 08:54 1 MG Citalopram Hydrobromide 30 mg DAILY PO 10/22/24 10:00 10/24/24 08:54 30 MG Lorazepam 1 mg TIDP PRN PO 10/21/24 14:15 Chlordiazepoxide HCl 25 mg Q6HR PO 10/21/24 17:15 10/24/24 18:08 25 MG Levetiracetam 750 mg BID PO 10/21/24 22:00 10/24/24 08:54 750 MG Olanzapine 5 mg HS PO 10/21/24 22:00 10/23/24 22:02 5 MG Morphine Sulfate 2 mg Q4HPRN PRN IV 10/22/24 09:00 10/24/24 15:22 2 MG Piperacillin Sod/ Tazobactam Sod 100 ml @ 25 mls/hr Q8HR IV 10/22/24 15:00 10/24/24 06:15 25 MLS/HR Dextrose/Sodium Chloride 1,000 ml @ 100 mls/hr Q10H IV 10/23/24 11:45 10/24/24 17:53 100 MLS/HR objective General: NAD, AAOX3 Chest: lung das clear to auscultation Heart: RRR, no murmur Abdomen: Moderate tenderness to palpation, +BS laboratory and microbiology Laboratory Tests 10/24/24 05:46 Test 10/24/24 05:46 Range/Units Serum Glucose 87 74-106 mg/dL CT SCAN CHEST ABD PELVIS IMPRESSION: 1. No significant changes the appearance of the pancreatitis or questionable hyperdense mass measuring 19 mm near the pancreatic head. 2. Inflammatory changes in the right pericolic gutter. 3. Free fluid in the cul-de-sac. 4. No hydronephrosis or nephrolithiasis 5. No findings of bowel obstruction Problems(with codes): (1) Pancreatitis (2) Alcohol abuse (3) Suicidal ideation (4) Alcohol intoxication (5) Seizure (6) Elevated liver enzymes (7) UTI (urinary tract infection) Prognosis PLAN Continue to monitor labs Continue clear liquids Await CA 19 nine Patient may need outpatient referral to higher level of care for elective endoscopic ultrasound to continue to monitor the pancreatic head lesion Dietary Evaluation Review Comments: 1) Advance to soft diet as medically feasible 2) Monitor PO intake, lab values, weight trend, and I/O Expected Outcomes/Goals: To meet >75% estimated needs Lab values to improve Fu 2-3 days Plan discussed with: Other (Antonella Biswas) RAJ MARQUEZ MD Oct 24, 2024 21:31
[2024-10-24] MEDS: LORazepam 0.5 MG TAB PO PRN (22:56)
[2024-10-25] VITALS (7 sets, daily range): BP systolic 92–111; BP diastolic 59–82; PULSE 60–86; RESP 17–19; TEMP 97.6–98.7; O2SAT 97–99
[2024-10-25 07:30] LABS: Hematocrit 35.3 % (36.0-46.0); Hemoglobin 12.5 g/dL (12.2-16.2); Mean Corpuscular Hemoglobin 31.3 pg (28.0-32.0); Mean Corpuscular Volume 88.8 fL (80.0-100.0); Nucleated Red Blood Cells % 0.0 %
[2024-10-25 07:43] LABS: Sodium 141 mmol/L (136-145)
[2024-10-25 07:44] LABS: Anion Gap 9 (5-15); Carbon Dioxide 25 mmol/L (20-31)
[2024-10-25 07:45] LABS: Calcium 8.8 mg/dL (8.7-10.4)
[2024-10-25 07:48] LABS: Chloride 107 mmol/L (98-107); Potassium 3.3 mmol/L (3.5-5.1)
[2024-10-25 07:49] LABS: Glucose 105 mg/dL (74-106)
[2024-10-25 07:52] LABS: BUN/Creatinine Ratio 8.3 (10.0-20.0); Blood Urea Nitrogen < 5 mg/dL (9-23)
[2024-10-25] MEDS: POTASSIUM EFFERVESENT TAB 25 MEQ PO ONE (09:30)
--- NOTE | 2024-10-25 13:28 | DVHPN2 ---
Progress Note - Dictate Date Seen: Oct 25, 2024 Medical Necessity Reason Pt with a Central, PICC or Fol: No Subjective No new complaints Patient is started on soft diet Repeat lipase pending vital signs Vital Sign Date Time Temp Pulse Resp B/P (MAP) Pulse Ox O2 Delivery O2 Flow Rate FiO2 10/25/24 09:29 62 17 128/73 10/25/24 09:00 97.7 98 97.7 10/24/24 20:00 Room Air* 0 21 Total Intake and Output 10/24/24 10/24/24 10/25/24 15:00 23:00 07:00 Intake Total 1118 ml 810 ml Balance 1118 ml 810 ml medications Current Medications Medications Dose Ordered Sig/Dom Route Start Time Stop Time Status Last Admin Dose Admin Acetaminophen/ Hydrocodone Bitart 1 tab Q4HP PRN PO 10/21/24 13:45 10/24/24 20:06 1 TAB Ondansetron HCl 4 mg Q4HP PRN IV 10/21/24 13:45 Docusate Sodium 100 mg BIDPRN PRN PO 10/21/24 13:45 Acetaminophen 650 mg Q6HP PRN PO 10/21/24 13:45 Thiamine HCl 100 mg DAILY PO 10/22/24 10:00 10/25/24 08:59 100 MG Multivitamins 1 tab DAILY PO 10/22/24 10:00 10/25/24 08:59 1 TAB Folic Acid 1 mg DAILY PO 10/22/24 10:00 10/25/24 08:59 1 MG Citalopram Hydrobromide 30 mg DAILY PO 10/22/24 10:00 10/25/24 09:00 30 MG Lorazepam 1 mg TIDP PRN PO 10/21/24 14:15 10/24/24 22:56 1 MG Chlordiazepoxide HCl 25 mg Q6HR PO 10/21/24 17:15 10/25/24 13:01 25 MG Levetiracetam 750 mg BID PO 10/21/24 22:00 10/25/24 08:59 750 MG Olanzapine 5 mg HS PO 10/21/24 22:00 10/24/24 22:36 5 MG Morphine Sulfate 2 mg Q4HPRN PRN IV 10/22/24 09:00 10/25/24 08:59 2 MG Piperacillin Sod/ Tazobactam Sod 100 ml @ 25 mls/hr Q8HR IV 10/22/24 15:00 10/25/24 05:42 25 MLS/HR Dextrose/Sodium Chloride 1,000 ml @ 100 mls/hr Q10H IV 10/23/24 11:45 10/24/24 17:53 100 MLS/HR objective General: NAD, AAOX3 Chest: lung das clear to auscultation Heart: RRR, no murmur Abdomen: Moderate tenderness to palpation, +BS laboratory and microbiology Laboratory Tests 10/25/24 06:03 Test 10/25/24 06:03 Range/Units Serum Glucose 105 74-106 mg/dL Problems(with codes): (1) Elevated liver enzymes (2) Suicidal ideation (3) Seizure (4) UTI (urinary tract infection) (5) Pancreatitis (6) Alcohol abuse Prognosis Plan Patient was given reassurance CA 19 -9 is normal We will continue to monitor her as an outpatient with repeat imaging in 2-3 months If the lesion persists or grows in size then I will arrange outpatient referral for endoscopic ultrasound Dietary Evaluation Review Comments: 1) Advance to soft diet as medically feasible 2) Monitor PO intake, lab values, weight trend, and I/O Expected Outcomes/Goals: To meet >75% estimated needs Lab values to improve Fu 2-3 days Plan discussed with: Patient RAJ MARQUEZ MD Oct 25, 2024 13:28
--- NOTE | 2024-10-25 14:12 | DVHPNRES ---
Progress Note Date Seen: Oct 25, 2024 Resident Creating Document: BRAIN CHRISTINA RESIDENT Medical Necessity Reason Pt with a Central, PICC or Fol: No Objective vital signs Vital Sign Date Time Temp Pulse Resp B/P (MAP) Pulse Ox O2 Delivery O2 Flow Rate FiO2 10/25/24 12:50 97.6 70 17 111/82 (92) 97 97.6 10/24/24 20:00 Room Air* 0 21 Total Intake and Output 10/24/24 10/24/24 10/25/24 14:59 22:59 06:59 Intake Total 1118 ml 810 ml Balance 1118 ml 810 ml medications Current Medications Medications Dose Ordered Sig/Dom Route Start Time Stop Time Status Last Admin Dose Admin Acetaminophen/ Hydrocodone Bitart 1 tab Q4HP PRN PO 10/21/24 13:45 10/24/24 20:06 1 TAB Ondansetron HCl 4 mg Q4HP PRN IV 10/21/24 13:45 Docusate Sodium 100 mg BIDPRN PRN PO 10/21/24 13:45 Acetaminophen 650 mg Q6HP PRN PO 10/21/24 13:45 Thiamine HCl 100 mg DAILY PO 10/22/24 10:00 10/25/24 08:59 100 MG Multivitamins 1 tab DAILY PO 10/22/24 10:00 10/25/24 08:59 1 TAB Folic Acid 1 mg DAILY PO 10/22/24 10:00 10/25/24 08:59 1 MG Citalopram Hydrobromide 30 mg DAILY PO 10/22/24 10:00 10/25/24 09:00 30 MG Lorazepam 1 mg TIDP PRN PO 10/21/24 14:15 10/24/24 22:56 1 MG Chlordiazepoxide HCl 25 mg Q6HR PO 10/21/24 17:15 10/25/24 13:01 25 MG Levetiracetam 750 mg BID PO 10/21/24 22:00 10/25/24 08:59 750 MG Olanzapine 5 mg HS PO 10/21/24 22:00 10/24/24 22:36 5 MG Morphine Sulfate 2 mg Q4HPRN PRN IV 10/22/24 09:00 10/25/24 08:59 2 MG Piperacillin Sod/ Tazobactam Sod 100 ml @ 25 mls/hr Q8HR IV 10/22/24 15:00 10/25/24 05:42 25 MLS/HR Dextrose/Sodium Chloride 1,000 ml @ 100 mls/hr Q10H IV 10/23/24 11:45 10/24/24 17:53 100 MLS/HR laboratory and microbiology Laboratory Tests 10/25/24 06:03 Test 10/25/24 06:03 Range/Units Serum Glucose 105 74-106 mg/dL Problem List/Assessment/Plan Problem List/Assessment/Plan # Acute intractable abdominal pain Morphine Tylenil zofran [place] # Acute Pancreatitis # Possible pseudocyst -Amylase: 563 > 713 -Lipase: 539 > 542 > 588 > 368 -piperacillin-tazobactam -folic acid -multivitamins -Thiamine -Sodium chloride -CA 19-9 -CT abdomen/pelvis with contrast (repeat imaging recommended in 68 weeks with outpatient follow-up) # pancreatic head lesion: 1.9 cm -Abdomen/Pelvis CT: Extensive peripancreatic edema / stranding consistent with acute pancreatitis changes.Hyperdense lesion near the pancreatic head measuring 1.9 cm, indeterminate. Recommend follow-up CT abdomen pelvis with contrast in the short-term interval to evaluate. Mesenteric edema, small amount of free pelvic fluid, likely related to underlying pancreatitis. Hepatic steatosis. # Hepatic steatosis Liver US- Hepatic steatosis # seizure disorder levetiracetam # depression # anxiety # PTSD olanzapine Ativan citalopram # Alcohol use disorder librium Goals of care: Full code, discussed for >16 minutes on 10/24/24 Plan discussed with patient Plan discussed with Dr. Acevedo Dietary Evaluation Review Comments: 1) Advance to soft diet as medically feasible 2) Monitor PO intake, lab values, weight trend, and I/O Expected Outcomes/Goals: To meet >75% estimated needs Lab values to improve Fu 2-3 days BRAIN CHRISTINA Oct 25, 2024 14:12
[2024-10-25] MEDS ORDERED: KEP500T PO (17:02)
[2024-10-25] MEDS ORDERED: DOCU-265 PO (17:02)
[2024-10-25] MEDS ORDERED: CITA-77 PO (17:02)
[2024-10-25] MEDS ORDERED: THIA100T10 PO (17:02)
[2024-10-25] MEDS ORDERED: OLAN1TAB7 PO (17:02)
[2024-10-25] MEDS ORDERED: FOLI-119 PO (17:02)
[2024-10-25] MEDS ORDERED: MULTTAB99 PO (17:02)
[2024-10-25] MEDS ORDERED: CHL10C PO (17:25)
--- NOTE | 2024-10-25 17:32 | DVHDSRES ---
Discharge Summary Date of Admission Resident Creating Document: BRAIN CHRISTINA RESIDENT Oct 21, 2024 at 13:36 Date of Discharge: Oct 25, 2024 Admitting Diagnosis abdominal pain Labs/Diagnostic Data: Laboratory Results Test 10/25/24 06:03 10/24/24 05:46 10/23/24 05:48 10/22/24 17:15 White Blood Count 3.1 10^3/uL (4.4-10.8) Red Blood Count 3.98 10^6/uL (4.0-5.20) Hemoglobin 12.5 g/dL (12.2-16.2) Hematocrit 35.3 % (36.0-46.0) Mean Corpuscular Volume 88.8 fL (80.0-100.0) Mean Corpuscular Hemoglobin 31.3 pg (28.0-32.0) Mean Corpuscular Hemoglobin Concent 35.3 g/dL (32.0-36.0) Red Cell Distribution Width 14.0 % (11.8-14.3) Platelet Count 209 10^3/uL (140-450) Mean Platelet Volume 7.0 fL (6.9-10.8) Neutrophils (%) (Auto) 49.9 % (37.0-80.0) Lymphocytes (%) (Auto) 39.3 % (10.0-50.0) Monocytes (%) (Auto) 10.4 % (0.0-12.0) Eosinophils (%) (Auto) 0.0 % (0.0-7.0) Basophils (%) (Auto) 0.4 % (0.0-2.0) Neutrophils # (Auto) 1.6 10 ^3/uL (1.6-8.6) Lymphocytes # (Auto) 1.2 10 ^3/uL (0.4-5.4) Monocytes # (Auto) 0.3 10 ^3/uL (0-1.3) Eosinophils # (Auto) 0 10 ^3/uL (0-0.8) Basophils # (Auto) 0 10 ^3/uL (0-0.2) Nucleated Red Blood Cells 0.0 % Sodium Level 141 mmol/L (136-145) Potassium Level 3.3 mmol/L (3.5-5.1) Chloride Level 107 mmol/L (98-107) Carbon Dioxide Level 25 mmol/L (20-31) Anion Gap 9 (5-15) Blood Urea Nitrogen < 5 mg/dL (9-23) Creatinine 0.60 mg/dL (0.550-1.02) Glomerular Filtration Rate Calc 120 mL/min (>90) BUN/Creatinine Ratio 8.3 (10.0-20.0) Serum Glucose 105 mg/dL (74-106) Calcium Level 8.8 mg/dL (8.7-10.4) Lipase 317 U/L (12-53) CA 19-9 Antigen 27 U/mL (0-35) Magnesium Level 1.8 mg/dL (1.6-2.6) Total Bilirubin 0.8 mg/dL (0.2-1.0) Aspartate Amino Transferase (AST) 24 U/L (13-40) Alanine Aminotransferase (ALT) < 9 U/L (7-40) Alkaline Phosphatase 87 U/L (46-116) Total Protein 6.0 g/dL (5.7-8.2) Albumin 4.0 g/dL (3.2-4.8) Test 10/22/24 03:37 10/21/24 12:32 Triglycerides Level 129 mg/dL (< 150) Cholesterol Level 161 mg/dL (< 200) LDL Cholesterol 90 mg/dL (< 100) HDL Cholesterol 63 mg/dL (40-59) Amylase Level 713 U/L (30-118) Urine Test Negative (Negative) Other Laboratory Tests 10/25/24 06:03 Brief Hx & Hospital Course: This is a 34-year-old female with a history of pancreatitis, seizures, anxiety, and depression who presented to the emergency department with acute onset abdominal pain, nausea, and vomiting beginning earlier in the day. She reports that the pain is identical to prior episodes of pancreatitis, for which she was previously hospitalized for 10 days. Her last alcohol intake was on 10/20/2024; she typically consumes 34 tall cans of beer daily but now expresses a desire to stop drinking and is actively seeking support for sobriety. Initial labs revealed elevated pancreatic enzymes: lipase 539 U/L and amylase 563 U/L, both of which showed an uptrending pattern. CT abdomen/pelvis showed a hyperdense lesion near the pancreatic head measuring 1.9 cm, indeterminate in nature. CA 19-9 was ordered and later returned within normal limits. Differential diagnosis includes pseudocyst, and repeat imaging is recommended in 68 weeks. During hospitalization, the patient continued to experience abdominal pain and also reported neck discomfort. Bowel sounds remained normal. Lipase levels began to downtrend (588 > 368 > 317), and NPO status was discontinued. She was transitioned to a clear liquid diet, then to a soft diet, which she tolerated well. The patient was given reassurance and education regarding alcohol cessation. She will be monitored as an outpatient with repeat imaging in 23 months. If the pancreatic lesion persists or increases in size, outpatient referral for endoscopic ultrasound will be arranged. On evaluation today, she states she is well, pain is manageable. Her vitals have remained stable for discharge home, follow up visit in discharge clinic. All medications and recommendations were thoroughly explained and the patient states he understands and agrees. Detailed discussion held with patient at bedside were all questions were answered and concerns were addressed. Physical exam General Appearance: Alert, Oriented X3, Cooperative, moderate distress HEENT: Atraumatic, PERRLA Respiratory: Clear to auscultation, Normal air movement Cardiovascular: Regular rate, Normal S1, Normal S2, No murmurs Abdominal: Normal bowel sounds, Soft, Other (abdominal pain) Extremities: No clubbing, No cyanosis, No edema, Normal pulses, No tenderness/swelling Skin: No rashes, No breakdown, No significant lesion Neuro: Normal gait, Normal speech, Strength at 5/5 X4 ext, Normal tone Psych/Mental Status: Mental status NL, M Operations or Procedures PROCEDURE(s): CAPIV - CT CHEST/AB/PL W CON- IV ONLY REASON: worsening pancreatitis, 2nd episode ORDER NUMBER(s): [id number], ACCESSION NUMBER(s): [id number] Exam: CT CT CHEST/AB/PL W CON- IV ONLY History: worsening pancreatitis, 2nd episode Comparison Study: CT CT AB PEL WO CON-NO ORAL OR IV on DOS: 10/22/24, CT CT AB PEL WITH IV CON ONLY on DOS: 03/17/24, CT CT AB PEL WO CON-NO ORAL OR IV on DOS: 03/14/24 Technique: Multidetector CT of the chest, abdomen and pelvis was performed from lower neck to pubic symphysis. Intravenous contrast was administered during this examination. Axial, coronal and sagittal multiplanar reformats were performed by the technologist on a separate workstation. Radiation Dose Information: CT Dose: CTDI volume is 16.38 mGy. Dose-length product is 672.79 mGy*cm Findings: Lower neck: Thyroid gland appears normal Lungs: Clear Heart/Vascular Structures: Unremarkable Lymph Nodes: No adenopathy Pleura: No pleural thickening or pleural effusions Liver: The liver is normal in size. No focal lesions. Normal hepatic vascular enhancement. Gallbladder and Biliary Tree: Unremarkable Spleen: Unremarkable Pancreas: Peripancreatic inflammatory changes not significantly changed. 1.9 cm hyperdense mass near the head of the pancreas unchanged. No cystic changes of the pancreas. Adrenal Glands: Unremarkable Kidneys: Kidneys demonstrate normal symmetric enhancement without focal lesions, calculi or hydronephrosis. Bladder: Unremarkable Bowel: The stomach is grossly normal in appearance. Small bowel and colon are normal in caliber and distribution. The appendix is not visualized; however, no secondary findings of acute appendicitis identified. Ascites: Absent Lymphadenopathy: No mesenteric, retroperitoneal or periportal lymphadenopathy. Abdominal Wall and Mesentery: Unremarkable. Vasculature: The visualized abdominal aorta is normal in size and caliber. Abdominal and pelvic vessels demonstrate normal enhancement. Pelvic Organs: Free fluid in the cul-de-sac Musculoskeletal: No aggressive focal bony lesions, acute fractures or dislocation. IMPRESSION: 1. No significant changes the appearance of the pancreatitis or questionable hyperdense mass measuring 19 mm near the pancreatic head. 2. Inflammatory changes in the right pericolic gutter. 3. Free fluid in the cul-de-sac. 4. No hydronephrosis or nephrolithiasis 5. No findings of bowel obstruction All CT scans at this medical facility are performed using dose modulation techniques as appropriate to a performed exam including the following: Automated exposure control was utilized; adjustment of the MA and/or KV according to patient size; and use of iterative reconstruction technique. PROCEDURE(s): LIVUS - LIVER REASON: gall stone ORDER NUMBER(s): [id number], ACCESSION NUMBER(s): [id number] INDICATION: gall stone TECHNIQUE: Multiple real-time sonographic images of the abdomen were obtained. COMPARISON: US GALLBLADDER on DOS: 03/14/24, US GALLBLADDER on DOS: 06/01/22 FINDINGS: The liver is homogenous in echogenicity. The liver measures 17cm. No intrahepatic biliary ductal dilatation is noted. The gallbladder wall measures 0.2 cm and is unremarkable. No gallstones or sludge is seen. The common duct measures 0.6 cm and is unremarkable. No pericholecystic fluid is noted. The right kidney measures 11cm. No hydronephrosis. The pancreas is not well visualized due to obscuration from bowel gas. The visualized portions of the IVC and aorta are grossly unremarkable. IMPRESSION: Hepatic steatosis. PROCEDURE(s): ABPL - CT AB PEL WO CON-NO ORAL OR IV REASON: hx of pancreatitis, elevated lipase 542 ORDER NUMBER(s): [id number], ACCESSION NUMBER(s): [id number] Indication: hx of pancreatitis, elevated lipase 542 Technique: CT axial images of the abdomen and pelvis are obtained without contrast. Coronal and sagittal reformats were obtained. Radiation Dose Information: CTDI volume is 8.19 mGy. Dose-length product is 3.92 mGy*cm Comparison: CT CT AB PEL WO CON-NO ORAL OR IV on DOS: 03/14/24, CT CT AB PEL WO CON-NO ORAL OR IV on DOS: 06/14/22 FINDINGS: There is limited interpretation of the abdomen and pelvis without administration of intravenous contrast. Lung bases demonstrate no pleural effusion. Adrenal glands, spleen unremarkable. Extensive peripancreatic stranding, edema hyper dense lesion near the pancreatic head measuring 1.[address] evidence for cholelithiasis. Hepatic steatosis. The kidneys demonstrate no hydronephrosis, nephrolithiasis. Stomach is partially distended. Small bowel loops are moderately distended. Normal appendix. Retroperitoneal edema. Fluid in the right paracolic gutter. Small amount of free pelvic fluid. Bladder is partially distended. No inguinal lymphadenopathy. No aggressive osseous process. IMPRESSION: Limited evaluation without contrast. Extensive peripancreatic edema / stranding consistent with acute pancreatitis changes. Hyperdense lesion near the pancreatic head measuring 1.9 cm, indeterminate. Recommend follow-up CT abdomen pelvis with contrast in the short-term interval to evaluate. Mesenteric edema, small amount of free pelvic fluid, likely related to underlying pancreatitis. Hepatic steatosis. Other findings as described. Condition at Discharge: Stable Final Diagnosis/Problems List # Acute intractable abdominal pain # Acute Pancreatitis # Possible pseudocyst # pancreatic head lesion: 1.9 cm # Hepatic steatosis # seizure disorder # depression # anxiety # PTSD # Alcohol use disorder Discharge Disposition: Home Discharge Instruct/Medications Diet: Regular Activity: No Restrictions, As Tolerated Follow Up/Referral: Follow up with PCP within 1-2 weeks. Medications: Citalopram hydrobromide 20 mg p.o. daily 30 days Docusate sodium 100 mg p.o. b.i.d. p.r.n. 30 days Folic acid 1 mg p.o. daily 30 days Keppra tablet 750 mg p.o. b.i.d. 30 days Multiple Vitamin 1 Tab PO daily 30 days Olanzapine 5 mg PO HS 30 days Thiamine HCl 100 mg p.o. daily 30 days Librium Scheduled Citalopram Hydrobromide (Citalopram Hydrobromide), 30 MG PO DAILY Folic Acid (Folic Acid), 1 MG PO DAILY Hydroxyzine Pamoate (Vistaril), 1 CAP PO BID Levetiracetam (Keppra Tablet), 750 MG PO BID Multiple Vitamin (Mvi Tab), 1 TAB PO DAILY Olanzapine (Olanzapine), 5 MG PO HS Thiamine Hcl (Vitamin B-1), 100 MG PO DAILY Scheduled PRN Chlordiazepoxide Hcl (Ni-1) (I (Librium), 10 MG PO Q8HP PRN Docusate Sodium (Docusate Sodium), 100 MG PO BIDPRN PRN Hydrocodone-Acetaminophen (Hydrocodone Bitartrate/AC 5-325 mg), 1 TAB PO Q6HP PRN Discontinued Medications Bupropion HCl (Wellbutrin Xl), 150 MG PO DAILY Escitalopram Oxalate (Escitalopram Oxalate), 3 TAB PO DAILY, (Reported) Hydrocodone-Acetaminophen (Hydrocodone Bitartrate/AC 5-325 mg), 1 TAB PO Q8HPRN PRN Levetiracetam (Levetiracetam), 2 TAB PO, (Reported) Levetiracetam (Keppra Tablet), 750 MG PO BID, (Reported) Lorazepam (Ativan), 0.5 TAB PO BIDPRN PRN Lorazepam (Lorazepam), 1 TAB PO TIDP PRN, (Reported) Olanzapine (Olanzapine), 1 TAB PO HS, (Reported) Ondansetron (Zofran), 1 TAB PO BID Discharge Statement: "Patient was advised to return to the ER or call 911 if any headaches, dizziness, shortness of breath, chest pain, abdominal pain, bleeding, fevers, or worsening of medical condition. Patient was counseled about treatment plan, medications, possible side effects, patientverbalized understanding. All questions were answered to the best of my ability. This discharge took greater then 30 minutes in planning, reviewing documentation, counseling the patient, and discussing with other team members." ASSESSMENT ASSESSMENT Assessment # Acute intractable abdominal pain # Acute Pancreatitis # Possible pseudocyst # pancreatic head lesion: 1.9 cm # Hepatic steatosis # seizure disorder # depression # anxiety # PTSD # Alcohol use disorder Date of Service: Oct 25, 2024 Billing Provider: SHELTON CLAUDIO MD Common Visit Codes: 91582-TED/OBS DISCH DAY >30min BRAIN CHRISTINA RESIDENT Oct 25, 2024 17:32 SHELTON CLAUDIO MD Oct 27, 2024 19:06
[2024-10-25] MEDS ORDERED: HYDR-4902 PO (17:45)
== END 2024-10-25 18:23 | disposition home or self-care (01) | DRG 282 ==
LOC: ER 10:22 → OVERFLOW 13:36 → EAST 10-22 14:28
PROVIDERS: ADMIT Internal Medicine Geriatric Medicine; ATTEND Internal Medicine Gastroenterology
DX: K85.90 Acute pancreatitis without necrosis or infection, unspecified (principal); K76.0 Fatty (change of) liver, not elsewhere classified; F10.129 Alcohol abuse with intoxication, unspecified; F32.A Depression, unspecified; G40.909 Epilepsy, unspecified, not intractable, without status epilepticus; F10.139 Alcohol abuse with withdrawal, unspecified; F17.210 Nicotine dependence, cigarettes, uncomplicated; F41.9 Anxiety disorder, unspecified; F43.10 Post-traumatic stress disorder, unspecified; K86.3 Pseudocyst of pancreas
CPT/HCPCS: 36415; 71260; 74176; 74177; 76705; 80048; 80053; 80061; 81025; 82150; 83690; 83735; 85025; 86301; 96361; 96374; 99291; G0378; J2405; J2543; J3480

== ENCOUNTER 2024-11-12 13:22 | Inpatient (IN) | payer MEDICAID ==
[~2024-11-12] VITALS: Ht 167.6 cm; Wt 83.4 kg
[~2024-11-12 13:22] MED LIST changes: -BUPRTAB PO; +CHL10C PO; +CITA-77 PO; +DOCU-265 PO; +FOLI-119 PO; +KEP500T PO; -LORA2TAB89 PO; +MULTTAB99 PO; +OLAN1TAB7 PO; -ONDA-144 PO; +THIA100T10 PO
--- NOTE | 2024-11-12 13:50 | ED.PDOC ---
GI ASSESSMENT HPI Comments 34 year old female presents to the ED with a chief complaint of abdominal pain onset 1 day. Patient has been experiencing upper abdominal pain as well as nausea/vomiting for the past day. Patient's last bowel movement was yesterday, used enema. She was discharged from [facility] on 10/25/24 for similar symptoms, is currently 23 days sober. PMHx pancreatic mass, pancreatitis. Denies fever, chills, dizziness, chest pain, shortness of breath, dysuria, hematuria, hematemesis, melena. No other symptoms or modifying factors present at this time. Chief Complaint: Abdominal Pain Time Seen by MD: 13:40 Primary Care Provider: NONE Reviewed Notes: Medications, Allergies Allergies: Coded Allergies: NO KNOWN ALLERGIES (Unverified , 06/14/22) Home Meds Active Scripts Hydrocodone-Acetaminophen (Hydrocodone Bitartrate/AC 5-325 mg) 1 Tab Tab, 1 TAB PO Q6HP PRN, #15 TAB Prov:SHELTON CLAUDIO MD 10/25/24 Chlordiazepoxide Hcl (Ni-1) (I (Librium) 10 Mg Cap, 10 MG PO Q8HP PRN, #15 CAP Prov:SHELTON CLAUDIO MD 10/25/24 Thiamine Hcl (VITAMIN B-1) 100 Mg Tb, 100 MG PO DAILY for 30 Days, #30 TAB Prov:EVE NATH RESIDENT 10/25/24 Olanzapine (OLANZAPINE) 5 Mg Tab, 5 MG PO HS for 30 Days, #30 TAB Prov:EVE NATH [facility] 10/25/24 Multiple Vitamin (Mvi Tab) 1 Tab Tb, 1 TAB PO DAILY for 30 Days, #30 TAB Prov:EVE NATH [facility] 10/25/24 Levetiracetam (KEPPRA TABLET) 500 Mg Tb, 750 MG PO BID for 30 Days, #90 TAB Prov:EVE NATH [facility] 10/25/24 Folic Acid (Folic Acid) 1 Mg Tab, 1 MG PO DAILY for 30 Days, #30 TAB Prov:EVE NATH [facility] 10/25/24 Docusate Sodium (Docusate Sodium) 100 Mg Cap, 100 MG PO BIDPRN PRN for 30 Days, #60 CAP Prov:EVE NATH [facility] 10/25/24 Citalopram Hydrobromide (Citalopram Hydrobromide) 20 Mg Tab, 30 MG PO DAILY for 30 Days, #45 TAB Prov:EVE NATH 10/25/24 Hydroxyzine Pamoate (Vistaril) 50 Mg Cap, 1 CAP PO BID, #20 CAP 2 Refills Prov:STEVE BHAGAT 06/01/22 Information Source: Patient Mode of Arrival: Ambulatory Timing: Days Duration: Since onset Prehospital treatment: None Quality: Sharp Severity: Moderate Recent: None Recent Hx of: None Pain Location: Diffuse Modifying Factors: Nothing Associated sign and symptoms: Nausea, Vomiting, Abdominal Pain Past Medical History PAST MEDICAL HISTORY: Anxiety, Depression, Seizures Past Medical History (Other): pancreatic mass Surgical History: BTL, Tubal Ligation PAROLE AGENT History: Denies all PAROLE AGENT Hx Family History Family History: Reviewed,noncontributory to illness Social History Smoker: Cigarettes Alcohol: Heavy Drugs: Denies Drug Use Lives In: Home Constitutional: denies: chills, diaphoresis, fatigue, fever, malaise, sweats, weakness, others EENTM: denies: blurred vision, double vision, ear bleeding, ear discharge, ear drainage, ear pain, ear ringing, eye pain, eye redness, hearing loss, mouth pain, mouth swelling, nasal discharge, nose bleeding, nose congestion, nose pain, photophobia, tearing, throat pain, throat swelling, voice changes, others Respiratory: denies: cough, hemoptysis, orthopnea, SOB at rest, shortness of breath, SOB with excertion, stridor, wheezing, others Cardiovascular: denies: chest pain, dizzy spells, diaphoresis, Dyspnea on exertion, edema, irregular heart beat, left arm pain, lightheadedness, palpitations, PND, syncope, others Gastrointestinal: reports: abdominal pain, nausea, poor appetite, vomiting; denies: abdomen distended, blood streaked bowels, constipated, diarrhea, dysphagia, difficulty swallowing, hematemesis, melena, poor fluid intake, rectal bleeding, rectal pain, others Genitourinary: denies: abnormal vagina bleeding, burning, dyspareunia, dysuria, flank pain, frequency, hematuria, incontinence, pain, , vagina discharge, urgency, others Neurological: denies: dizziness, fainting, headache, left sided numbness, left sided weakness, numbness, paresthesia, pre-existing deficit, right sided numbness, right sided weakness, seizure, speech problems, tingling, tremors, weakness, others Musculoskeletal: denies: back pain, gout, joint pain, joint swelling, muscle pain, muscle stiffness, neck pain, others Integumetry: denies: bruises, change in color, change in hair/nails, dryness, laceration, lesions, lumps, rash, wounds, others Allergic/Immunocompromised: denies: Difficulty Healing, Frequent Infections, Hives, Itching, others Hematologic/Lymphatic: denies: anemia, blood clots, easy bleeding, easy bruising, swollen glands, others Endocrine: denies: excessive hunger, excessive sweating, excessive thirst, excessive urination, flushing, intolerance to cold, intolerance to heat, unexplained weight gain, unexplained weight loss, others Psychiatric: denies: anxiety, bipolar disorder, depression, hopeless, panic disorder, schizophrenia, sleepless, suicidal, others All Other Systems: Reviewed and Negative Physical Exam General Appearance: Moderate Distress, Normal HEENT: Normal ENT Inspection, Pharynx Normal, TMs Normal Neck: Full Range of Motion, Non-Tender, Normal, Normal Inspection Respiratory: Chest Non-Tender, Lungs Clear, No Accessory Muscle Use, No Respiratory Distress, Normal Breath Sounds Cardiovascular: No Edema, No JVD, No Murmur, No Gallop, Normal Peripheral Pulses, Regular Rate/Rhythm Breast Exam: Deferred Gastrointestinal: Diffuse, No Organomegaly, No Pulsatile Mass, Normal Bowel Sounds, Soft Genitalia: Deferred Pelvic: Deferred Rectal: Deferred Extremities: No calf tenderness, Normal capillary refill, Normal inspection, Normal range of motion, Non-tender, No pedal edema Musculoskeletal : Apperance: Normal Neurologic: Alert, 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 Was a procedure done?: No GI differential Dx Differential Diagnosis: Constipation, Diverticular disease, Esophagitis, Gastritis/PUD, Gastroenteritis X-Ray, Labs, Meds, VS Vital Signs Date Time Temp Pulse Resp B/P (MAP) Pulse Ox O2 Delivery O2 Flow Rate FiO2 11/12/24 14:56 96 18 116/79 11/12/24 14:03 96 18 116/79 (91) 99 11/12/24 14:03 96 18 99 Room Air 11/12/24 13:24 97.1 111 12 104/71 96 97.1 Lab Test 11/12/24 13:56 11/12/24 13:45 Range/Units White Blood Count 8.4 4.4-10.8 10^3/uL Red Blood Count 4.63 4.0-5.20 10^6/uL Hemoglobin 14.4 12.2-16.2 g/dL Hematocrit 40.6 36.0-46.0 % Mean Corpuscular Volume 87.7 80.0-100.0 fL Mean Corpuscular Hemoglobin 31.1 28.0-32.0 pg Mean Corpuscular Hemoglobin Concent 35.4 32.0-36.0 g/dL Red Cell Distribution Width 13.4 11.8-14.3 % Platelet Count 353 140-450 10^3/uL Mean Platelet Volume 7.1 6.9-10.8 fL Neutrophils (%) (Auto) 69.4 37.0-80.0 % Lymphocytes (%) (Auto) 24.9 10.0-50.0 % Monocytes (%) (Auto) 5.2 0.0-12.0 % Eosinophils (%) (Auto) 0.1 0.0-7.0 % Basophils (%) (Auto) 0.4 0.0-2.0 % Neutrophils # (Auto) 5.8 1.6-8.6 10 ^3/uL Lymphocytes # (Auto) 2.1 0.4-5.4 10 ^3/uL Monocytes # (Auto) 0.4 0-1.3 10 ^3/uL Eosinophils # (Auto) 0 0-0.8 10 ^3/uL Basophils # (Auto) 0 0-0.2 10 ^3/uL Nucleated Red Blood Cells 0.0 % Sodium Level 136 136-145 mmol/L Potassium Level 3.8 3.5-5.1 mmol/L Chloride Level 107 98-107 mmol/L Carbon Dioxide Level 20 20-31 mmol/L Anion Gap 9 5-15 Blood Urea Nitrogen < 5 L 9-23 mg/dL Creatinine 0.76 0.550-1.02 mg/dL Glomerular Filtration Rate Calc 105 >90 mL/min BUN/Creatinine Ratio 6.6 L 10.0-20.0 Serum Glucose 92 74-106 mg/dL Calcium Level 9.4 8.7-10.4 mg/dL Lipase Pending Urine Color Colorless Yellow Urine Clarity Clear Clear Urine pH 6.0 5.0-9.0 Urine Specific [place] 1.006 1.001-1.035 Urine Protein Negative Negative Urine Ketones Negative Negative Urine Blood Negative Negative /uL Urine Nitrite Negative Negative Urine Bilirubin Negative Negative Urine Urobilinogen Normal Negative mg/dL Urine Leukocyte Esterase Negative Negative /uL Urine RBC <1 0 - 4 /hpf Urine Microscopic WBC < 1 0-5 /HPF Urine Squamous Epithelial Cells Few <5 /hpf Urine Bacteria None seen None Seen /hpf Urine Glucose Normal Normal mg/dL Current Medications Medications (Trade) Dose Ordered Sig/Dom Route Start Time Stop Time Status Last Admin Sodium Chloride 1,000 ml @ 1,000 mls/hr Q1H ONCE IV 11/12/24 14:00 11/12/24 14:59 DC 11/12/24 14:29 Morphine Sulfate 4 mg ONCE ONCE IV 11/12/24 14:45 11/12/24 14:46 DC 11/12/24 14:56 Ondansetron HCl (Zofran) 4 mg ONCE ONCE IV 11/12/24 14:45 11/12/24 14:46 DC 11/12/24 14:56 Patient alert. Complaining of abdominal pain. Vitals stable. Answering all questions. Reviewed her previous visit. CT scan done at that time does show mild pancreatitis. CT scan at this time shows resolution of the inflammatory changes pain She will need possible MRI. Establish intravenous access. Was given fluids. Was given pain medication. Continue monitoring. [address] [address] Ph: [phone] DIAGNOSTIC IMAGING Diagnostic Imaging Report : [id number] Signed PATIENT: SCOT GARCIACCT: [id number] UNIT: [id number] : 1990 LOC: ER ROOM / BED: / AGE / SEX: 34 / F ADM STATUS: REG ER SERVICE [id number] ORDERING PHYSICIAN: ALEXANDRIA WOOTEN MD PROCEDURE(s): ABPL - CT AB PEL WO CON-NO ORAL OR IV REASON: pancreasmass ORDER NUMBER(s): [id number], ACCESSION NUMBER(s): [id number] EXAM: CT CT AB PEL WO CON-NO ORAL OR IV INDICATION: pancreasmass TECHNIQUE: Volumetric multidetector CT images of the abdomen and pelvis were obtained without contrast. All CT scans at this facility use dose modulation, iterative reconstruction, and/or weight based dosing when appropriate to reduce radiation dose to as low as reasonably achievable. COMPARISON: CT CT AB PEL WO CON-NO ORAL OR IV on DOS: 10/22/24 FINDINGS: [LOWER CHEST]: The partially visualized lung bases are clear without a pleural effusion. The cardiac size is normal without pericardial effusion. [LIVER]: Hepatomegaly. [GALLBLADDER AND BILIARY TREE]: No cholelithiasis. [SPLEEN]: Unremarkable. [PANCREAS]: Resolution previously identified inflammatory stranding when compared to 10/22/24 redemonstration of presumed pancreatic head and not discretely measurable pancreatic head mass. Overall limited evaluation without dedicated CT versus MRI pancreatic protocol. [ADRENAL GLANDS]: Unremarkable [KIDNEYS]: No hydronephrosis. No nephroureterolithiasis. [BLADDER]: Unremarkable for the degree distention. [REPRODUCTIVE ORGANS]: Unremarkable. [BOWEL/MESENTERY]: Stomach is normal. No CT evidence of bowel obstruction. mild stool burden. [ASCITES]: Absent [LYMPHADENOPATHY]: No pathologically enlarged lymph nodes by CT size criteria [VASCULATURE]: No aneurysmal dilatation. [ABDOMINAL WALL]: Unremarkable. [MUSCULOSKELETAL]: No acute fracture or aggressive focal osseous lesion. Multifocal degenerative change of the visualized spine. IMPRESSION: 1. Resolution previously identified inflammatory stranding when compared to 10/22/24 redemonstration of presumed pancreatic head and not discretely measurable pancreatic head mass. Overall limited evaluation without dedicated CT versus MRI pancreatic protocol. 2. Recommend further evaluation with dedicated pancreatic protocol study. ATED BY: GURPREET MARQUES MD DICTATED DATE/TIME: 11/12/241414 SIGNED BY: GURPREET MARQUES MD SIGNED DATE/TIME: 11/12/241414 CC: Time of 1ST Reevaluation: 14:10 Reevaluation 1ST: Unchanged Patient Education/Counseling: Diagnosis, Treatment, Prognosis Family Education/Counseling: No Family Present SEPSIS Sepsis Screen Date sepsis recognized/suspect: Nov 12, 2024 Time Sepsis recognized/suspect: 1324 Recent Procedure: No On Antibiotic Therapy: No Respiratory Rate >20: No Heart Rate >90: No Temp<36 C (96.8 F) or >38.3 C: No SBP <90 or MAP <65 mmHG: No New Acute Mental Status Change: No Is the patient on CPAP, BIPAP,: No Physician Orders Lipase (11/12/24 13:48) Ct Ab Pel Wo Con-No Oral Or Iv (11/12/24 13:48) Vital Signs Date Time Temp Pulse Resp B/P (MAP) Pulse Ox O2 Delivery O2 Flow Rate FiO2 11/12/24 14:56 96 18 116/79 11/12/24 14:03 96 18 116/79 (91) 99 11/12/24 14:03 96 18 99 Room Air 11/12/24 13:24 97.1 111 12 104/71 96 97.1 Laboratory Tests Test 11/12/24 13:56 White Blood Count 8.4 10^3/uL (4.4-10.8) Medications Medications Dose Ordered Sig/Dom Route Start Time Stop Time Status Last Admin Dose Admin Morphine Sulfate 4 mg ONCE ONCE IV 11/12/24 14:45 11/12/24 14:46 DC 11/12/24 14:56 Ondansetron HCl 4 mg ONCE ONCE IV 11/12/24 14:45 11/12/24 14:46 DC 11/12/24 14:56 Sodium Chloride 1,000 ml @ 1,000 mls/hr Q1H ONCE IV 11/12/24 14:00 11/12/24 14:59 DC 11/12/24 14:29 Departure 1 Departure Time of Disposition: 14:30 Impression: Primary Impression: Acute abdominal pain Disposition: ADMITTED INPATIENT Admit to: Med Surg Condition: Guarded Critical Care Note Critical Care Time?: No Stability Stability form required: No Heart Score Heart Score: Heart Score Response (Comments) Value History N/A 0 EKG N/A 0 Age N/A 0 Risk Factors N/A 0 Troponin N/A 0 Total 0 I personally scribed for ALEXANDRIA WOOTEN MD ([email or web address]) on 11/12/24 at 13:50. Electronically submitted by Kim Tee ([email or web address]). I personally scribed for ALEXANDRIA WOOTEN MD ([email or web address]) on 11/12/24 at 15:10. Electronically submitted by Kim Tee ([email or web address]). ALEXANDRIA WOOTEN MD Nov 12, 2024 13:50
[2024-11-12 14:09] LABS: Urine Protein, UAD Negative (Negative)
[2024-11-12 14:18] LABS: Hematocrit 40.6 % (36.0-46.0); Hemoglobin 14.4 g/dL (12.2-16.2); Mean Corpuscular Hemoglobin 31.1 pg (28.0-32.0); Mean Corpuscular Volume 87.7 fL (80.0-100.0); Nucleated Red Blood Cells % 0.0 %
--- NOTE | 2024-11-12 14:18 | DVH ---
EXAM: CT CT AB PEL WO CON-NO ORAL OR IV INDICATION: pancreasmass TECHNIQUE: Volumetric multidetector CT images of the abdomen and pelvis were obtained without contras t. All CT scans at this facility use dose modulation, iterative reconstruction, and/or weight based d osing when appropriate to reduce radiation dose to as low as reasonably achievable. COMPARISON: CT CT AB PEL WO CON-NO ORAL OR IV on DOS: 10/22/24 FINDINGS: [LOWER CHEST]: The partially visualized lung bases are clear without a pleural effusion. The cardiac size is normal without pericardial effusion. [LIVER]: Hepatomegaly. [GALLBLADDER AND BILIARY TREE]: No cholelithiasis. [SPLEEN]: Unremarkable. [PANCREAS]: Resolution previously identified inflammatory stranding when compared to 10/22/24 redemons tration of presumed pancreatic head and not discretely measurable pancreatic head mass. Overall limit ed evaluation without dedicated CT versus MRI pancreatic protocol. [ADRENAL GLANDS]: Unremarkable [KIDNEYS]: No hydronephrosis. No nephroureterolithiasis. [BLADDER]: Unremarkable for the degree distention. [REPRODUCTIVE ORGANS]: Unremarkable. [BOWEL/MESENTERY]: Stomach is normal. No CT evidence of bowel obstruction. mild stool burden. [ASCITES]: Absent [LYMPHADENOPATHY]: No pathologically enlarged lymph nodes by CT size criteria [VASCULATURE]: No aneurysmal dilatation. [ABDOMINAL WALL]: Unremarkable. [MUSCULOSKELETAL]: No acute fracture or aggressive focal osseous lesion. Multifocal degenerative carrera ge of the visualized spine. IMPRESSION: 1. Resolution previously identified inflammatory stranding when compared to 10/22/24 redemonstration o f presumed pancreatic head and not discretely measurable pancreatic head mass. Overall limited evalua tion without dedicated CT versus MRI pancreatic protocol. 2. Recommend further evaluation with dedicated pancreatic protocol study.
[2024-11-12] MEDS: SODIUM CHLORIDE 0.9% 1,000 ML IV ONE (14:29)
[2024-11-12 14:42] LABS: Chloride 107 mmol/L (98-107); Potassium 3.8 mmol/L (3.5-5.1); Sodium 136 mmol/L (136-145)
[2024-11-12 14:43] LABS: Anion Gap 9 (5-15); Carbon Dioxide 20 mmol/L (20-31)
[2024-11-12 14:44] LABS: Calcium 9.4 mg/dL (8.7-10.4)
[2024-11-12 14:48] LABS: Glucose 92 mg/dL (74-106)
[2024-11-12 14:50] LABS: BUN/Creatinine Ratio 6.6 (10.0-20.0); Blood Urea Nitrogen < 5 mg/dL (9-23)
[2024-11-12] MEDS: MORPHINE SULFATE 4 MG/ML SYR/VIAL IV ONE (14:56)
[2024-11-12] MEDS: ONDANSETRON HCL 4 MG/2 ML VIAL IV ONE (14:56)
--- NOTE | 2024-11-12 16:11 | DVHHPRES ---
History of Present Illness Resident Creating Document: CARMELLA PATE RESIDENT History of Present Illness Deborah Hoffman is a 34-year-old female with past medical history of seizures, pancreatitis, ETOH dependance, depression, and anxiety, who came to the hospital for worsening abdominal pain. patient recently discharged from [facility] after being treated for alcoholic acute pancreatitis. Since the discharge patient has been having on and off abdominal pain which not has been in complete remission but for the last couple of days patient has been having worsening abdominal pain which is radiating to back associated with nausea and vomiting and increased with eating and no relieving factors. Patient also reported after the discharge patient has been not drinking any alcohol and she has been having constipation lately. No other acute symptoms reported at this time. Pressors edges PMH: As above PSH: tubal ligation Family history: Noncontributory Social history: Lives with boyfriend. Smokes 10 cigarettes per day, former alcohol abuser but denies active alcohol and other drug abuse Home medications: Keppra 750 mg p.o. b.i.d., docusate, MiraLAX, multivitamin Allergies: No known allergies Patient seen and examined at the bedside. Patient is in distress due to pain and complaining of nausea, vomiting and constipation. Review of Systems Allergies: Coded Allergies: NO KNOWN ALLERGIES (Unverified , 06/14/22) Medications Current Medications Medications Dose Ordered Sig/Dom Route Start Time Stop Time Status Last Admin Dose Admin Sodium Chloride 1,000 ml @ 120 mls/hr Q8H20M IV 11/12/24 15:45 UNV Ondansetron HCl 4 mg Q4HP PRN IV 11/12/24 15:45 UNV Enoxaparin Sodium 40 mg DAILY SC 11/13/24 10:00 UNV Acetaminophen 650 mg Q6HP PRN PO 11/12/24 15:45 UNV Morphine Sulfate 2 mg Q4HPRN PRN IV 11/12/24 15:45 UNV Exam Vital Signs Vital Signs Date Time Temp Pulse Resp B/P (MAP) Pulse Ox O2 Delivery O2 Flow Rate FiO2 11/12/24 14:56 96 18 116/79 11/12/24 14:03 99 11/12/24 14:03 Room Air 11/12/24 13:24 97.1 97.1 Exam Pt is lying on bed General Appearance: Alert, Oriented X3, Cooperative, Not in acute distress HEENT: Atraumatic, Mucous membranes moist/pink Respiratory: Clear to auscultation, Normal air movement, No added sounds Cardiovascular: Regular rate, Normal S1, Normal S2, No murmurs Abdominal: Epigastric tenderness, normal bowel sounds Extremities: No edema, Normal pulses, No tenderness/swelling Skin: No Significant rash, except past surgical scars Neuro: Normal speech, sensorimotor deficits none Psych/Mental Status: Mental status NL, Mood NL Nurse was there as oil well services field supervisor during examination Labs/Xrays Labs Test 11/12/24 13:56 11/12/24 13:45 Range/Units White Blood Count 8.4 4.4-10.8 10^3/uL Red Blood Count 4.63 4.0-5.20 10^6/uL Hemoglobin 14.4 12.2-16.2 g/dL Hematocrit 40.6 36.0-46.0 % Mean Corpuscular Volume 87.7 80.0-100.0 fL Mean Corpuscular Hemoglobin 31.1 28.0-32.0 pg Mean Corpuscular Hemoglobin Concent 35.4 32.0-36.0 g/dL Red Cell Distribution Width 13.4 11.8-14.3 % Platelet Count 353 140-450 10^3/uL Mean Platelet Volume 7.1 6.9-10.8 fL Neutrophils (%) (Auto) 69.4 37.0-80.0 % Lymphocytes (%) (Auto) 24.9 10.0-50.0 % Monocytes (%) (Auto) 5.2 0.0-12.0 % Eosinophils (%) (Auto) 0.1 0.0-7.0 % Basophils (%) (Auto) 0.4 0.0-2.0 % Neutrophils # (Auto) 5.8 1.6-8.6 10 ^3/uL Lymphocytes # (Auto) 2.1 0.4-5.4 10 ^3/uL Monocytes # (Auto) 0.4 0-1.3 10 ^3/uL Eosinophils # (Auto) 0 0-0.8 10 ^3/uL Basophils # (Auto) 0 0-0.2 10 ^3/uL Nucleated Red Blood Cells 0.0 % Sodium Level 136 136-145 mmol/L Potassium Level 3.8 3.5-5.1 mmol/L Chloride Level 107 98-107 mmol/L Carbon Dioxide Level 20 20-31 mmol/L Anion Gap 9 5-15 Blood Urea Nitrogen < 5 L 9-23 mg/dL Creatinine 0.76 0.550-1.02 mg/dL Glomerular Filtration Rate Calc 105 >90 mL/min BUN/Creatinine Ratio 6.6 L 10.0-20.0 Serum Glucose 92 74-106 mg/dL Calcium Level 9.4 8.7-10.4 mg/dL Lipase 93 H 12-53 U/L Urine Color Colorless Yellow Urine Clarity Clear Clear Urine pH 6.0 5.0-9.0 Urine Specific [place] 1.006 1.001-1.035 Urine Protein Negative Negative Urine Ketones Negative Negative Urine Blood Negative Negative /uL Urine Nitrite Negative Negative Urine Bilirubin Negative Negative Urine Urobilinogen Normal Negative mg/dL Urine Leukocyte Esterase Negative Negative /uL Urine RBC <1 0 - 4 /hpf Urine Microscopic WBC < 1 0-5 /HPF Urine Squamous Epithelial Cells Few <5 /hpf Urine Bacteria None seen None Seen /hpf Urine Glucose Normal Normal mg/dL SEPSIS Sepsis Screen Date sepsis recognized/suspect: Nov 12, 2024 Time Sepsis recognized/suspect: 4 Recent Procedure: No On Antibiotic Therapy: No Respiratory Rate >20: No Heart Rate >90: No Temp<36 C (96.8 F) or >38.3 C: No SBP <90 or MAP <65 mmHG: No New Acute Mental Status Change: No Is the patient on CPAP, BIPAP,: No Physician Orders Ct Ab Pel Wo Con-No Oral Or Iv (11/12/24 13:48) Admit (11/12/24 15:35) Allergies (11/12/24 15:35) Code Status (11/12/24 15:35) Sodium Chloride 0.9% (11/12/24 15:45) Ondansetron Hcl (Zofran) (11/12/24 15:45) Enoxaparin Sodium (Lovenox) (11/13/24 10:00) Complete Blood Count (11/13/24 04:00) Comprehensive Metabolic Panel (11/13/24 04:00) Npo (Nothing By Mouth) Diet (11/12/24 Dinner) Condition: Fair (11/12/24 15:35) Acetaminophen Tablet (Tylenol Tablet) (11/12/24 15:45) Morphine Sulfate Injection (11/12/24 15:45) Hepatic Panel (11/12/24 15:58) Blood Alcohol (11/12/24 15:58) Drug Screen (11/12/24 15:58) Magnesium (11/12/24 15:58) PTPTT (11/12/24 15:58) Fleet Enema Adult (11/12/24 16:15) Pantoprazole (Protonix) (11/12/24 16:15) Vital Signs Date Time Temp Pulse Resp B/P (MAP) Pulse Ox O2 Delivery O2 Flow Rate FiO2 11/12/24 14:56 96 18 116/79 11/12/24 14:03 96 18 116/79 (91) 99 11/12/24 14:03 96 18 99 Room Air 11/12/24 13:24 97.1 111 12 104/71 96 97.1 Laboratory Tests Test 11/12/24 13:56 White Blood Count 8.4 10^3/uL (4.4-10.8) Medications Medications Dose Ordered Sig/Dom Route Start Time Stop Time Status Last Admin Dose Admin Morphine Sulfate 4 mg ONCE ONCE IV 11/12/24 14:45 11/12/24 14:46 DC 11/12/24 14:56 4 MG Ondansetron HCl 4 mg ONCE ONCE IV 11/12/24 14:45 11/12/24 14:46 DC 11/12/24 14:56 4 MG Sodium Chloride 1,000 ml @ 1,000 mls/hr Q1H ONCE IV 11/12/24 14:00 11/12/24 14:59 DC 11/12/24 14:29 1,000 MLS/HR Assessment/Plan Assessment/Plan Possible acute gastroenteritis - supportive management with IV fluids - pain management with morphine - Zofran as needed - no antibiotics needed for now Acute on chronic pancreatitis, alcohol induced - elevated lipase - CT findings showed resolution of inflammatory standing compared to previous - currently NPO - supportive management as above - continue IVF 120 mL/hour - we will start diet tomorrow morning Severe constipation - Fleet enema - docusate as needed HX of seizure disorder - continue Keppra 750 b.i.d. HX of anxiety /depression with the no suicidal / homicidal ideations Tobacco abuse disorder /dependence, Alcohol use disorder -counseled regarding cessation for more than 17 minutes GI PPX: Protonix VTE ppx: Lovenox Diet: NPO for now Goals of care addressed with the patient for more than 27 minutes: Full code status Case discussed with ,patient and nurse Plan discussed with: Patient My Orders Orders - CARMELLA PATE RESIDENT Procedure Category Date Status Time Admit ADMIT 11/12/24 Transmitted 15:35 Allergies MARÍA ELENA 11/12/24 In Process 15:35 Code Status CODE 11/12/24 Transmitted 15:35 Sodium Chloride 0.9% PHA 11/12/24 Logged 15:45 Ondansetron Hcl PHA 11/12/24 Logged (Zofran) 15:45 Enoxaparin Sodium PHA 11/13/24 Logged (Lovenox) 10:00 Complete Blood Count LAB 11/13/24 Verified 04:00 Comprehensive LAB 11/13/24 Verified Metabolic Panel 04:00 Npo (Nothing By DIET 11/12/24 Transmitted Mouth) Diet Dinner Condition: Fair MARÍA ELENA 11/12/24 In Process 15:35 Acetaminophen Tablet PHA 11/12/24 Logged (Tylenol Tablet) 15:45 Morphine Sulfate PHA 11/12/24 Logged Injection 15:45 Hepatic Panel LAB 11/12/24 In Process 15:58 Blood Alcohol LAB 11/12/24 In Process 15:58 Drug Screen LAB 11/12/24 Transmitted 15:58 Magnesium LAB 11/12/24 In Process 15:58 PTPTT LAB 11/12/24 In Process 15:58 Fleet Enema Adult PHA 11/12/24 Logged 16:15 Pantoprazole PHA 11/12/24 Transmitted (Protonix) 16:15 CARMELLA PATE RESIDENT Nov 12, 2024 16:11
[2024-11-12 16:35] LABS: INR 0.98 (0.9-1.15); Partial Thromboplastin Time 31.9 SEC (24.5-34.5); Prothrombin Time 10.4 sec (9.3-11.8)
[2024-11-12] MEDS: FLEET ENEMA(ADULT) 135 ML PR ONE (16:39)
[2024-11-12] MEDS: SODIUM CHLORIDE 0.9% 1,000 ML IV SCH (16:40)
[2024-11-12] MEDS: PANTOPRAZOLE 40 MG/10 ML VIAL INJ IV SCH (17:05)
[2024-11-12 18:53] LABS: Alanine Aminotransferase 17 U/L (7-40); Alkaline Phosphatase 96 U/L (46-116); Magnesium 2.1 mg/dL (1.6-2.6); Total Protein 8.0 g/dL (5.7-8.2)
[2024-11-12 18:56] LABS: Albumin 4.9 g/dL (3.2-4.8); Bilirubin, Direct < 0.1 mg/dL (<0.3); Bilirubin, Total 0.2 mg/dL (0.2-1.0)
[2024-11-12 19:52] VITALS: BP 105/70; PULSE 71; PULSE 76; RESP 16; RESP 19; TEMP 97.5; O2SAT 100; O2SAT 99
[2024-11-12] MEDS ORDERED: ARIP5TAB22 PO (20:23)
[2024-11-12] MEDS ORDERED: LORA-1123 PO (20:23)
[2024-11-12] MEDS ORDERED: POLYPOW85 PO (20:23)
[2024-11-12 21:37] LABS: Benzodiazephine Screen, Urine Pos (NEGATIVE)
[2024-11-12 21:41] LABS: Amphetamine Screen, Urine Neg (NEGATIVE); Barbiturate Scree,Urine Neg (NEGATIVE); Cannabinoid Screen, Urine Neg (NEGATIVE); Cocaine Screen, Urine Neg (NEGATIVE); Opiate Scree,Urine Neg (NEGATIVE); Phencyclidine Screen, Urine Neg (NEGATIVE)
[2024-11-12] MEDS ORDERED: levETIRAcetam 500 MG TAB PO SCH (22:00)
[2024-11-13 01:00] VITALS: BP 95/60; PULSE 78; RESP 16; TEMP 97.7; O2SAT 98
[2024-11-13 05:00] VITALS: BP 105/65; PULSE 75; RESP 16; TEMP 98; O2SAT 98
[2024-11-13 06:21] LABS: Alanine Aminotransferase 13 U/L (7-40); Albumin 3.8 g/dL (3.2-4.8); Alkaline Phosphatase 69 U/L (46-116); Anion Gap 7 (5-15); BUN/Creatinine Ratio 9.2 (10.0-20.0); Bilirubin, Total 0.3 mg/dL (0.2-1.0); Carbon Dioxide 24 mmol/L (20-31); Glucose 92 mg/dL (74-106); Potassium 4.3 mmol/L (3.5-5.1); Sodium 142 mmol/L (136-145); Total Protein 6.0 g/dL (5.7-8.2)
[2024-11-13 06:22] LABS: Hematocrit 36.1 % (36.0-46.0); Hemoglobin 12.8 g/dL (12.2-16.2); Mean Corpuscular Hemoglobin 31.1 pg (28.0-32.0); Mean Corpuscular Volume 87.8 fL (80.0-100.0); Nucleated Red Blood Cells % 0.2 %
[2024-11-13 06:25] LABS: Blood Urea Nitrogen 7 mg/dL (9-23); Calcium 8.3 mg/dL (8.7-10.4); Chloride 111 mmol/L (98-107)
[2024-11-13] MEDS: MORPHINE SULFATE INJ 2 MG/ml SYRG IV PRN (06:43)
[2024-11-13 09:00] VITALS: BP 100/68; PULSE 83; RESP 18; TEMP 98.9; O2SAT 97
[2024-11-13] MEDS: CITALOPRAM HYDROBR 20 MG TAB PO SCH (09:39)
[2024-11-13] MEDS: LEVETIRACETAM 1000 MG/100 ML IV SCH (09:40)
[2024-11-13] MEDS: ACETAMINOPHEN 325 MG TAB PO PRN (09:49)
[2024-11-13] MEDS: ONDANSETRON HCL 4 MG/2 ML VIAL IV PRN (09:49)
[2024-11-13] MEDS: ENOXAPARIN SOD 40 MG/0.4 ML SYRINGE SC SCH (09:57)
--- NOTE | 2024-11-13 15:28 | DVHPNRES ---
Progress Note Date Seen: Nov 13, 2024 Resident Creating Document: CARMELLA PATE RESIDENT Medical Necessity Reason Pt with a Central, PICC or Fol: No Subjective Review of Systems Patient seen and examined at the bedside. Overnight events reviewed, no new complaints reported at this time. Patient is still complaining of mild abdominal pain but improved since admission nausea and vomiting also improved since admission. Today started diet and advancing as she tolerated. Possible discharge tomorrow Objective vital signs Vital Sign Date Time Temp Pulse Resp B/P (MAP) Pulse Ox O2 Delivery O2 Flow Rate FiO2 11/13/24 11:41 79 16 105/67 11/13/24 09:00 98.9 97 98.9 11/12/24 19:52 Room Air* 0 21 Total Intake and Output 11/12/24 11/12/24 11/13/24 15:00 23:00 07:00 Intake Total 0 ml Balance 0 ml medications Current Medications Medications Dose Ordered Sig/Dom Route Start Time Stop Time Status Last Admin Dose Admin Sodium Chloride 1,000 ml @ 120 mls/hr Q8H20M IV 11/12/24 15:45 11/12/24 20:17 120 MLS/HR Ondansetron HCl 4 mg Q4HP PRN IV 11/12/24 15:45 11/13/24 09:49 4 MG Enoxaparin Sodium 40 mg DAILY SC 11/13/24 10:00 Acetaminophen 650 mg Q6HP PRN PO 11/12/24 15:45 11/13/24 09:49 650 MG Morphine Sulfate 2 mg Q4HPRN PRN IV 11/12/24 15:45 11/13/24 11:11 2 MG Pantoprazole Sodium 40 mg DAILY IV 11/12/24 16:15 11/13/24 09:40 40 MG Citalopram Hydrobromide 30 mg DAILY PO 11/13/24 10:00 11/13/24 09:39 30 MG Levetiracetam 75 ml @ 400 mls/hr BID IV 11/13/24 10:00 11/13/24 09:40 400 MLS/HR Metronidazole 100 ml @ 100 mls/hr Q8HR IV 11/13/24 10:00 11/13/24 11:11 100 MLS/HR Examination Pt is lying on bed General Appearance: Alert, Oriented X3, Cooperative, Not in acute distress HEENT: Atraumatic, Mucous membranes moist/pink Respiratory: Clear to auscultation, Normal air movement, No added sounds Cardiovascular: Regular rate, Normal S1, Normal S2, No murmurs Abdominal: Epigastric tenderness, normal bowel sounds Extremities: No edema, Normal pulses, No tenderness/swelling Skin: No Significant rash, except past surgical scars Neuro: Normal speech, sensorimotor deficits none Psych/Mental Status: Mental status NL, Mood NL Nurse was there as community relations coordinator during examination laboratory and microbiology Laboratory Tests 11/13/24 05:32 Test 11/13/24 05:32 Range/Units Serum Glucose 92 74-106 mg/dL Microbiology Date/Time Source Procedure Growth Status 11/12/24 20:40 Nose MRSA Screen - Final Complete Labs and/or images reviewed: Labs reviewed by me, Image(s) reviewed by me Problem List/Assessment/Plan Problem List/Assessment/Plan Possible acute gastroenteritis - supportive management with IV fluids - pain management with morphine - Zofran as needed - no antibiotics needed for now - IV Flagyl Acute on chronic pancreatitis, alcohol induced - elevated lipase - CT findings showed resolution of inflammatory standing compared to previous - supportive management as above - continue IVF 120 mL/hour - liquid diet and advanced as tolerated Severe constipation - Fleet enema - docusate as needed HX of seizure disorder - continue Keppra 750 b.i.d. HX of anxiety /depression with the no suicidal / homicidal ideations Tobacco abuse disorder /dependence, Alcohol use disorder -counseled regarding cessation for more than 17 minutes GI PPX: Protonix VTE ppx: Lovenox Diet: liquid diet and advanced as tolerated Goals of care addressed with the patient for more than 27 minutes: Full code status Case discussed with ,patient and nurse Plan discussed with: Patient My Orders My Orders Orders - CARMELLA PATE RESIDENT Procedure Category Date Status Time Admit ADMIT 11/12/24 Transmitted 15:35 Allergies MARÍA ELENA 11/12/24 In Process 15:35 Code Status CODE 11/12/24 Transmitted 15:35 Sodium Chloride 0.9% PHA 11/12/24 In Process 15:45 Ondansetron Hcl PHA 11/12/24 In Process (Zofran) 15:45 Enoxaparin Sodium PHA 11/13/24 In Process (Lovenox) 10:00 Condition: Fair MARÍA ELENA 9/9/25 In Process 15:35 Acetaminophen Tablet PHA 11/12/24 In Process (Tylenol Tablet) 15:45 Morphine Sulfate PHA 11/12/24 In Process Injection 15:45 Pantoprazole PHA 11/12/24 In Process (Protonix) 16:15 Citalopram Tablet PHA 11/13/24 In Process (Celexa Tablet) 10:00 Metronidazole PHA 11/13/24 In Process 500mg/100ml (Flagyl 10:00 Full Liq Diet DIET 11/13/24 Transmitted Lunch Sucralfate Susp PHA 11/13/24 In Process (Carafate Susp) 15:30 Methylprednisolone PHA 11/13/24 In Process Sod Succ (Solu Medrol 15:30 Complete Blood Count LAB 11/14/24 Verified 04:00 Comprehensive LAB 11/14/24 Verified Metabolic Panel 04:00 Magnesium LAB 11/14/24 Verified 04:00 CARMELLA PATE RESIDENT Nov 13, 2024 15:28
[2024-11-13] MEDS: methylPREDNISolone SOD SUCC 40 MG/ML VL IV ONE (15:58)
[2024-11-13] MEDS: SUCRALFATE 1 GM/10 ML ORAL SUSP PO SCH (15:58)
[2024-11-13 20:00] VITALS: PULSE 73; RESP 19; O2SAT 96
[2024-11-13 21:00] VITALS: BP 102/70; PULSE 73; RESP 19; TEMP 98.3; O2SAT 96
[2024-11-14] VITALS (7 sets, daily range): BP systolic 100–113; BP diastolic 70–78; PULSE 67–83; RESP 17–18; TEMP 98–99.7; O2SAT 94–100
[2024-11-14 07:02] LABS: Hematocrit 35.2 % (36.0-46.0); Hemoglobin 12.4 g/dL (12.2-16.2); Mean Corpuscular Hemoglobin 30.8 pg (28.0-32.0); Mean Corpuscular Volume 87.4 fL (80.0-100.0); Nucleated Red Blood Cells % 0.0 %
[2024-11-14 07:07] LABS: Alanine Aminotransferase 10 U/L (7-40); Albumin 3.6 g/dL (3.2-4.8); Alkaline Phosphatase 68 U/L (46-116); Anion Gap 6 (5-15); Bilirubin, Total 0.4 mg/dL (0.2-1.0); Carbon Dioxide 24 mmol/L (20-31); Glucose 86 mg/dL (74-106); Lipase 32 U/L (12-53); Magnesium 1.9 mg/dL (1.6-2.6); Potassium 3.7 mmol/L (3.5-5.1); Sodium 140 mmol/L (136-145); Total Protein 6.1 g/dL (5.7-8.2)
[2024-11-14 07:40] LABS: BUN/Creatinine Ratio 7.5 (10.0-20.0); Blood Urea Nitrogen < 5 mg/dL (9-23); Calcium 8.5 mg/dL (8.7-10.4); Chloride 110 mmol/L (98-107)
[2024-11-14] MEDS ORDERED: MET500T PO (10:09)
[2024-11-14] MEDS ORDERED: POLYPOW85 PO (10:09)
[2024-11-14] MEDS ORDERED: ZOFR4T PO (10:09)
--- NOTE | 2024-11-14 11:45 | DVHDSRES ---
Discharge Summary Date of Admission Resident Creating Document: CARMELLA PATE RESIDENT Nov 12, 2024 at 15:35 Date of Discharge: Nov 14, 2024 Admitting Diagnosis Acute gastroenteritis Labs/Diagnostic Data: Laboratory Results Test 11/14/24 05:46 11/12/24 13:56 11/12/24 13:45 White Blood Count 7.6 10^3/uL (4.4-10.8) Red Blood Count 4.02 10^6/uL (4.0-5.20) Hemoglobin 12.4 g/dL (12.2-16.2) Hematocrit 35.2 % (36.0-46.0) Mean Corpuscular Volume 87.4 fL (80.0-100.0) Mean Corpuscular Hemoglobin 30.8 pg (28.0-32.0) Mean Corpuscular Hemoglobin Concent 35.2 g/dL (32.0-36.0) Red Cell Distribution Width 13.2 % (11.8-14.3) Platelet Count 284 10^3/uL (140-450) Mean Platelet Volume 7.3 fL (6.9-10.8) Neutrophils (%) (Auto) 74.5 % (37.0-80.0) Lymphocytes (%) (Auto) 20.6 % (10.0-50.0) Monocytes (%) (Auto) 4.8 % (0.0-12.0) Eosinophils (%) (Auto) 0.0 % (0.0-7.0) Basophils (%) (Auto) 0.1 % (0.0-2.0) Neutrophils # (Auto) 5.7 10 ^3/uL (1.6-8.6) Lymphocytes # (Auto) 1.6 10 ^3/uL (0.4-5.4) Monocytes # (Auto) 0.4 10 ^3/uL (0-1.3) Eosinophils # (Auto) 0 10 ^3/uL (0-0.8) Basophils # (Auto) 0 10 ^3/uL (0-0.2) Nucleated Red Blood Cells 0.0 % Sodium Level 140 mmol/L (136-145) Potassium Level 3.7 mmol/L (3.5-5.1) Chloride Level 110 mmol/L (98-107) Carbon Dioxide Level 24 mmol/L (20-31) Anion Gap 6 (5-15) Blood Urea Nitrogen < 5 mg/dL (9-23) Creatinine 0.67 mg/dL (0.550-1.02) Glomerular Filtration Rate Calc 117 mL/min (>90) BUN/Creatinine Ratio 7.5 (10.0-20.0) Serum Glucose 86 mg/dL (74-106) Calcium Level 8.5 mg/dL (8.7-10.4) Magnesium Level 1.9 mg/dL (1.6-2.6) Total Bilirubin 0.4 mg/dL (0.2-1.0) Aspartate Amino Transferase (AST) 19 U/L (13-40) Alanine Aminotransferase (ALT) 10 U/L (7-40) Alkaline Phosphatase 68 U/L (46-116) Total Protein 6.1 g/dL (5.7-8.2) Albumin 3.6 g/dL (3.2-4.8) Lipase 32 U/L (12-53) Prothrombin Time 10.4 sec (9.3-11.8) Prothrombin Time INR 0.98 (0.9-1.15) Activated Partial Thromboplast Time 31.9 SEC (24.5-34.5) Direct Bilirubin < 0.1 mg/dL (<0.3) Plasma/Serum Blood Alcohol < 3.0 mg/dL (<10) Urine Color Colorless (Yellow) Urine Clarity Clear (Clear) Urine pH 6.0 (5.0-9.0) Urine Specific [place] 1.006 (1.001-1.035) Urine Protein Negative (Negative) Urine Ketones Negative (Negative) Urine Blood Negative /uL (Negative) Urine Nitrite Negative (Negative) Urine Bilirubin Negative (Negative) Urine Urobilinogen Normal mg/dL (Negative) Urine Leukocyte Esterase Negative /uL (Negative) Urine RBC <1 /hpf (0 - 4) Urine Microscopic WBC < 1 /HPF (0-5) Urine Squamous Epithelial Cells Few /hpf (<5) Urine Bacteria None seen /hpf (None Seen) Urine Glucose Normal mg/dL (Normal) Urine Opiates Screen Neg (NEGATIVE) Urine Fentanyl Screen Neg (NEGATIVE) Urine Barbiturates Screen Neg (NEGATIVE) Urine Phencyclidine Screen Neg (NEGATIVE) Urine Amphetamines Screen Neg (NEGATIVE) Urine Benzodiazepines Screen Pos (NEGATIVE) Urine Cocaine Screen Neg (NEGATIVE) Urine Cannabinoids Screen Neg (NEGATIVE) Other Laboratory Tests 11/14/24 05:46 Brief Hx & Hospital Course: Deborah Hoffman is a 34-year-old female with past medical history of seizures, pancreatitis, ETOH dependance, depression, and anxiety, who came to the hospital for worsening abdominal pain. patient recently discharged from [facility] after being treated for alcoholic acute pancreatitis. Since the discharge patient has been having on and off abdominal pain which not has been in complete remission but for the last couple of days patient has been having worsening abdominal pain which is radiating to back associated with nausea and vomiting and increased with eating and no relieving factors. Patient also reported after the discharge patient has been not drinking any alcohol and she has been having constipation lately. No other acute symptoms reported at this time. patient required hospital admission for further evaluation and management of severe abdominal pain. Patient diagnosed as severe gastroenteritis, dehydrated, started on supportive treatment with the IV fluids, Zofran and Protonix and started on IV Flagyl. Patient lab results elevated and patient was associated with acute on chronic pancreatitis with the CT finding showed resolution of inflammatory stranding compared to previous. We started diet slowly as tolerated. Due to severe constipation we are given Fleet enema and docusate as needed. For seizure disorder continues her home dose of Keppra. Patient was given counseling regarding cessation of alcohol, tobacco which was the reason for her chronic pancreatitis. Patient condition was improved, hemodynamically stable and in condition to be discharged home with the medical treatment as described below. Patient was advised about healthy lifestyle modifications including diet and exercise and advised to follow up with PCP, discharge Clinic continue psychiatry. Pt is lying on bed General Appearance: Alert, Oriented X3, Cooperative, Not in acute distress HEENT: Atraumatic, Mucous membranes moist/pink Respiratory: Clear to auscultation, Normal air movement, No added sounds Cardiovascular: Regular rate, Normal S1, Normal S2, No murmurs Abdominal: Active bowel sounds, Soft, no distention, no tenderness Extremities: No edema, Normal pulses, No tenderness/swelling Skin: No Significant rash, except past surgical scars Neuro: Normal speech, sensorimotor deficits none Psych/Mental Status: Mental status NL, Mood NL Nurse was there as shellfish manager during examination Discharge plan: Outpatient follow up with PCP Discharge Clinic in 1 week Follow up with the Psychiatry for anxiety/depression Meds: Flagyl 500mg 3 times daily for 5 days Sucralfate 10 mL oral 2 times daily for 15 days Protonix 40 mg daily once for 10 days Tramadol as needed for 7 days Zofran 4 mg 2 times daily as needed for ascites Resume all other home medications Operations or Procedures EXAM: CT CT AB PEL WO CON-NO ORAL OR IV INDICATION: pancreas mass TECHNIQUE: Volumetric multidetector CT images of the abdomen and pelvis were obtained without contrast. All CT scans at this facility use dose modulation, iterative reconstruction, and/or weight based dosing when appropriate to reduce radiation dose to as low as reasonably achievable. COMPARISON: CT CT AB PEL WO CON-NO ORAL OR IV on DOS: 10/22/24 IMPRESSION: 1. Resolution previously identified inflammatory stranding when compared to 10/22/24 redemonstration of presumed pancreatic head and not discretely measurable pancreatic head mass. Overall limited evaluation without dedicated CT versus MRI pancreatic protocol. 2. Recommend further evaluation with dedicated pancreatic protocol study. Condition at Discharge: Fair Final Diagnosis/Problems List Possible acute gastroenteritis, infectious etiology likely Acute on chronic pancreatitis, alcohol induced Severe constipation HX of seizure disorder HX of anxiety /depression with the no suicidal / homicidal ideations Tobacco abuse disorder /dependence, Alcohol use disorder Discharge Disposition: Home Discharge Instruct/Medications Diet: See Comment Diet comment: Advanced diet slowly as tolerated and avoid fatty foods Activity: No Restrictions, As Tolerated Follow Up/Referral: Outpatient follow up with PCP Discharge Clinic in 1 week Follow up with the Psychiatry for anxiety/depression Medications: Flagyl 500mg 3 times daily for 5 days Sucralfate 10 mL oral 2 times daily for 15 days Protonix 40 mg daily once for 10 days Tramadol as needed for 7 days Zofran 4 mg 2 times daily as needed for ascites Resume all other home medications Scheduled Aripiprazole (Aripiprazole), 1 TAB PO HS, (Reported) Citalopram Hydrobromide (Citalopram Hydrobromide), 30 MG PO DAILY Folic Acid (Folic Acid), 1 MG PO DAILY Levetiracetam (Keppra Tablet), 750 MG PO BID Lorazepam (Lorazepam), 1 TAB PO BID, (Reported) Metronidazole (Metronidazole), 500 MG PO TID Multiple Vitamin (Mvi Tab), 1 TAB PO DAILY Thiamine Hcl (Vitamin B-1), 100 MG PO DAILY Scheduled PRN Docusate Sodium (Docusate Sodium), 100 MG PO BIDPRN PRN Ondansetron Odt 4MG Tab (Zofran Po), 4 MG PO BIDPRN PRN Polyethylene Glycol 3350 (Clearlax), 1 SCOOP PO DAILYPRN PRN for FOR CONSTIPATION Tramadol Hcl (Tramadol Hcl), 50 MG PO QIDP PRN Discharge Statement: "Patient was advised to return to the ER or call 911 if any headaches, dizziness, shortness of breath, chest pain, abdominal pain, bleeding, fevers, or worsening of medical condition. Patient was counseled about treatment plan, medications, possible side effects, patientverbalized understanding. All questions were answered to the best of my ability. This discharge took greater then 30 minutes in planning, reviewing documentation, counseling the patient, and discussing with other team members." ASSESSMENT ASSESSMENT Assessment Possible acute gastroenteritis Acute on chronic pancreatitis, alcohol induced Severe constipation HX of seizure disorder HX of anxiety /depression with the no suicidal / homicidal ideations Tobacco abuse disorder /dependence, Alcohol use disorder Date of Service: Nov 14, 2024 Billing Provider: KYLE SHARP MD Common Visit Codes: 44783-IPR/OBS DISCH DAY >30min CARMELLA PATE RESIDENT Nov 14, 2024 11:45 KYLE SHARP MD Nov 16, 2024 08:44
[2024-11-14] MEDS ORDERED: TRAM50TA2 PO (11:56)
[2024-11-14 17:15] LABS: Urine Protein, UAD Negative (Negative)
[2024-11-14 21:00] LABS: COVID19 ANTIGEN SOFIA FIA NEGATIVE (NEGATIVE)
[2024-11-15 01:00] VITALS: BP 105/75; PULSE 64; RESP 17; TEMP 98.2; O2SAT 98
[2024-11-15 05:00] VITALS: BP 110/79; PULSE 62; RESP 17; TEMP 98.1; O2SAT 97
[2024-11-15 07:16] LABS: Alanine Aminotransferase 12 U/L (7-40); Albumin 3.8 g/dL (3.2-4.8); Alkaline Phosphatase 65 U/L (46-116); Anion Gap 8 (5-15); Calcium 8.7 mg/dL (8.7-10.4); Carbon Dioxide 25 mmol/L (20-31); Glucose 80 mg/dL (74-106); Potassium 4.0 mmol/L (3.5-5.1); Sodium 140 mmol/L (136-145); Total Protein 6.2 g/dL (5.7-8.2)
[2024-11-15 07:17] LABS: Bilirubin, Total 0.4 mg/dL (0.2-1.0)
[2024-11-15 07:19] LABS: BUN/Creatinine Ratio 6.4 (10.0-20.0); Blood Urea Nitrogen < 5 mg/dL (9-23); Chloride 107 mmol/L (98-107)
[2024-11-15 07:32] LABS: Hematocrit 36.9 % (36.0-46.0); Hemoglobin 12.9 g/dL (12.2-16.2); Mean Corpuscular Hemoglobin 30.1 pg (28.0-32.0); Mean Corpuscular Volume 86.2 fL (80.0-100.0); Nucleated Red Blood Cells % 0.2 %
[2024-11-15 09:00] VITALS: BP 106/63; PULSE 79; RESP 18; TEMP 97.9; O2SAT 99
[2024-11-15 13:00] VITALS: BP 101/74; PULSE 67; RESP 17; TEMP 98.3; O2SAT 99
--- NOTE | 2024-11-15 15:51 | DVHPNRES ---
Progress Note Date Seen: Nov 15, 2024 Resident Creating Document: CARMELLA PATE RESIDENT Medical Necessity Reason Pt with a Central, PICC or Fol: No Subjective Review of Systems Patient seen and examined at the bedside. Overnight events reviewed no new complaints at this time. Possible DC in next 24 hours Patient reports: Feels better Objective vital signs Vital Sign Date Time Temp Pulse Resp B/P (MAP) Pulse Ox O2 Delivery O2 Flow Rate FiO2 11/15/24 13:00 98.3 67 17 101/74 (83) 99 98.3 11/15/24 08:00 Room Air* 0 21 Total Intake and Output 11/14/24 11/14/24 11/15/24 15:00 23:00 07:00 Intake Total 1040 ml 500 ml Balance 1040 ml 500 ml Examination Pt is lying on bed General Appearance: Alert, Oriented X3, Cooperative, Not in acute distress HEENT: Atraumatic, Mucous membranes moist/pink Respiratory: Clear to auscultation, Normal air movement, No added sounds Cardiovascular: Regular rate, Normal S1, Normal S2, No murmurs Abdominal: Active bowel sounds, Soft, no distention, no tenderness Extremities: No edema, Normal pulses, No tenderness/swelling Skin: No Significant rash, except past surgical scars Neuro: Normal speech, sensorimotor deficits none Psych/Mental Status: Mental status NL, Mood NL Nurse was there as welding inspector during examination laboratory and microbiology Laboratory Tests 11/15/24 06:25 Test 11/15/24 06:25 Range/Units Serum Glucose 80 74-106 mg/dL Microbiology Date/Time Source Procedure Growth Status 11/14/24 15:15 Blood Blood Culture - Preliminary NO GROWTH AFTER 24 HOURS OF INCUBATION. Resulted 11/12/24 20:40 Nose MRSA Screen - Final Complete Labs and/or images reviewed: Labs reviewed by me, Image(s) reviewed by me Problem List/Assessment/Plan Problem List/Assessment/Plan Possible acute gastroenteritis - supportive management with IV fluids - pain management with morphine - Zofran as needed - no antibiotics needed for now - IV Flagyl Acute on chronic pancreatitis, alcohol induced - elevated lipase - CT findings showed resolution of inflammatory standing compared to previous - supportive management as above - continue IVF 120 mL/hour - liquid diet and advanced as tolerated Severe constipation - Fleet enema - docusate as needed HX of seizure disorder - continue Keppra 750 b.i.d. HX of anxiety /depression with the no suicidal / homicidal ideations Tobacco abuse disorder /dependence, Alcohol use disorder -counseled regarding cessation for more than 17 minutes GI PPX: Protonix VTE ppx: Lovenox Diet: liquid diet and advanced as tolerated Goals of care addressed with the patient for more than 27 minutes: Full code status Case discussed with ,patient and nurse Plan discussed with: Patient, Other (mom) My Orders My Orders Orders - CARMELLA PATE Procedure Category Date Status Time Discharge DISCHARGE 11/15/24 Transmitted 12:18 CARMELLA PATE RESIDENT Nov 15, 2024 15:51
== END 2024-11-15 14:51 | disposition home or self-care (01) | DRG 249 ==
LOC: ER 13:22 → OVERFLOW 15:35 → EAST 22:05
PROVIDERS: ADMIT Student in an Organized Health Care Education/Training Program; ATTEND Emergency Medicine
DX: A09 Infectious gastroenteritis and colitis, unspecified (principal); K85.20 Alcohol induced acute pancreatitis without necrosis or infection; F10.20 Alcohol dependence, uncomplicated; K86.0 Alcohol-induced chronic pancreatitis; G40.909 Epilepsy, unspecified, not intractable, without status epilepticus; F32.A Depression, unspecified; K59.00 Constipation, unspecified; Z20.822 Contact with and (suspected) exposure to COVID-19; F41.9 Anxiety disorder, unspecified; F17.210 Nicotine dependence, cigarettes, uncomplicated
CPT/HCPCS: 36415; 74176; 80048; 80053; 80076; 80307; 80320; 81001; 83690; 83735; 85025; 85610; 85730; 87040; 87081; 87426; 87804; 96374; G0378; J2405; J2470; J3490